=== PATIENT | male | born 1945 | race Caucasian/White ===

== ENCOUNTER → 2023-11-24 15:44 | Outpatient (REF) | payer OTHER, SELFPAY ==
[2023-11-24 11:07] LABS: ALT (SGPT) < 10 U/L (0-50); AST (SGOT) 22 U/L (17-59); Albumin 3.8 g/dl (3.5-5.0); Alkaline Phosphatase 87 U/L (38-126); Blood Urea Nitrogen 16 mg/dl (9-20); Carbon Dioxide 35 mmol/L (22-30); Chloride 100 mmol/L (98-107); Glucose 79 mg/dl (70-99); Potassium 3.8 mmol/L (3.5-5.1); Sodium 141 mmol/L (135-145); Total Bilirubin 0.5 mg/dl (0.2-1.3); eGFR > 60.00
[2023-11-24 11:47] LABS: % Basophils 1.4 % (0-2); % Eosinophils 4.3 % (0-6); % Immature Granulocytes 0.4 % (0-0.5); % Lymphocytes 14.5 % (20.5-51.1); % Monocytes 12.3 % (1.7-9.3); % Neutrophils 67.1 % (42.2-75.2); Absolute Eosinophils 0.1 10^3/uL (0-0.7); Absolute Lymphocytes 0.4 10^3/uL (1.2-3.4); Absolute Monocytes 0.3 10^3/uL (0.1-0.6); Absolute Neutrophils 1.9 10^3/uL (1.4-6.5); Hematocrit 38.8 % (39.0-52.0); Hemoglobin 12.3 g/dL (13.0-18.0); Mean Corp Hgb Conc. 31.7 g/dL (33.0-37.0); Mean Corpuscular Hgb 31.3 pg (27.0-31.0); Mean Corpuscular Volume 98.7 fL (80.0-94.0); Mean Platelet Volume 12.3 fL (7.4-10.4); Nucleated Red Blood Cells % 0 % (-); Platelet Count 168 10^3/uL (130-400); Red Blood Cell Count 3.93 10^6/uL (4.70-6.10); Red Cell Dist. Width 16.5 % (11.5-14.5); White Blood Cell Count 2.8 10^3/uL (4.8-10.8)
== END ==
LOC: OIDL 15:44
PROVIDERS: ATTENDING PHYSICIAN Internal Medicine Hematology & Oncology
DX: C85.93 Non-Hodgkin lymphoma, unspecified, intra-abdominal lymph nodes (principal)
CPT/HCPCS: 80053; 85025

== ENCOUNTER → 2024-01-19 14:58 | Outpatient (REF) | payer OTHER, SELFPAY ==
[2024-01-19 09:39] LABS: % Basophils 1.6 % (0-2); % Eosinophils 4.2 % (0-6); % Immature Granulocytes 0.3 % (0-0.5); % Lymphocytes 15.5 % (20.5-51.1); % Monocytes 15.5 % (1.7-9.3); % Neutrophils 62.9 % (42.2-75.2); Absolute Basophils 0.1 10^3/uL (0-0.2); Absolute Eosinophils 0.1 10^3/uL (0-0.7); Absolute Lymphocytes 0.5 10^3/uL (1.2-3.4); Absolute Monocytes 0.5 10^3/uL (0.1-0.6); Absolute Neutrophils 1.9 10^3/uL (1.4-6.5); Hematocrit 39.8 % (39.0-52.0); Hemoglobin 12.7 g/dL (13.0-18.0); Mean Corp Hgb Conc. 31.9 g/dL (33.0-37.0); Mean Corpuscular Volume 90.9 fL (80.0-94.0); Mean Platelet Volume 11.4 fL (7.4-10.4); Nucleated Red Blood Cells % 0 % (-); Platelet Count 172 10^3/uL (130-400); Red Blood Cell Count 4.38 10^6/uL (4.70-6.10); Red Cell Dist. Width 15.3 % (11.5-14.5); White Blood Cell Count 3.1 10^3/uL (4.8-10.8)
[2024-01-19 10:04] LABS: ALT (SGPT) 13 U/L (0-50); AST (SGOT) 25 U/L (17-59); Albumin 4.4 g/dl (3.5-5.0); Alkaline Phosphatase 83 U/L (38-126); Blood Urea Nitrogen 26 mg/dl (9-20); Calcium 9.8 mg/dl (8.4-10.2); Carbon Dioxide 30 mmol/L (22-30); Chloride 100 mmol/L (98-107); Glucose 95 mg/dl (70-99); Potassium 4.5 mmol/L (3.5-5.1); Sodium 141 mmol/L (135-145); Total Bilirubin 0.4 mg/dl (0.2-1.3); Total Protein 6.7 g/dl (6.3-8.2); eGFR > 60.00
== END ==
LOC: OIDL 14:58
PROVIDERS: ATTENDING PHYSICIAN Internal Medicine Hematology & Oncology
DX: C85.93 Non-Hodgkin lymphoma, unspecified, intra-abdominal lymph nodes (principal)
CPT/HCPCS: 80053; 85025

== ENCOUNTER → 2024-03-18 11:21 | Outpatient (REF) | payer OTHER, SELFPAY ==
[2024-03-18 12:43] VITALS: BP 133/83; BP_SYST 72
== END ==
LOC: RADI 11:21
PROVIDERS: ATTENDING PHYSICIAN Internal Medicine Hematology & Oncology; FAMILY PHYSICIAN Family Medicine
DX: C82.15 Follicular lymphoma grade II, lymph nodes of inguinal region and lower limb (principal)
CPT/HCPCS: 88305; 38505; 76942; 88333; 88341; 88342

== ENCOUNTER → 2024-04-26 16:10 | Outpatient (REF) | payer OTHER, SELFPAY ==
[2024-04-26 10:59] LABS: % Basophils 0.8 % (0-2); % Eosinophils 2.3 % (0-6); % Immature Granulocytes 0.4 % (0-0.5); % Lymphocytes 10.1 % (20.5-51.1); % Monocytes 10.1 % (1.7-9.3); % Neutrophils 76.3 % (42.2-75.2); Absolute Eosinophils 0.1 10^3/uL (0-0.7); Absolute Lymphocytes 0.5 10^3/uL (1.2-3.4); Absolute Monocytes 0.5 10^3/uL (0.1-0.6); Absolute Neutrophils 3.6 10^3/uL (1.4-6.5); Hematocrit 38.5 % (39.0-52.0); Hemoglobin 12.2 g/dL (13.0-18.0); Mean Corp Hgb Conc. 31.7 g/dL (33.0-37.0); Mean Corpuscular Hgb 28.4 pg (27.0-31.0); Mean Corpuscular Volume 89.5 fL (80.0-94.0); Mean Platelet Volume 11.4 fL (7.4-10.4); Nucleated Red Blood Cells % 0 % (-); Platelet Count 186 10^3/uL (130-400); Red Cell Dist. Width 17.3 % (11.5-14.5); White Blood Cell Count 4.7 10^3/uL (4.8-10.8)
[2024-04-26 11:13] LABS: ALT (SGPT) 15 U/L (0-50); AST (SGOT) 27 U/L (17-59); Albumin 4.6 g/dl (3.5-5.0); Alkaline Phosphatase 73 U/L (38-126); Blood Urea Nitrogen 21 mg/dl (9-20); Calcium 9.5 mg/dl (8.4-10.2); Carbon Dioxide 30 mmol/L (22-30); Chloride 103 mmol/L (98-107); Glucose 108 mg/dl (70-99); Potassium 4.6 mmol/L (3.5-5.1); Sodium 143 mmol/L (135-145); Total Bilirubin 0.6 mg/dl (0.2-1.3); Total Protein 7.1 g/dl (6.3-8.2); eGFR > 60.00
== END ==
LOC: OIDL 16:10
PROVIDERS: ATTENDING PHYSICIAN Internal Medicine Hematology & Oncology
DX: C85.93 Non-Hodgkin lymphoma, unspecified, intra-abdominal lymph nodes (principal)
CPT/HCPCS: 80053; 85025

== ENCOUNTER → 2024-04-30 11:38 | Outpatient (REF) | payer OTHER, SELFPAY ==
[2024-04-30 11:53] LABS: % Basophils 0.9 % (0-2); % Eosinophils 2.1 % (0-6); % Immature Granulocytes 1.9 % (0-0.5); % Lymphocytes 10.4 % (20.5-51.1); % Monocytes 12.1 % (1.7-9.3); % Neutrophils 72.6 % (42.2-75.2); Absolute Eosinophils 0.1 10^3/uL (0-0.7); Absolute Immature Granulocytes 0.1 10^3/uL (0-0.05); Absolute Lymphocytes 0.5 10^3/uL (1.2-3.4); Absolute Monocytes 0.5 10^3/uL (0.1-0.6); Absolute Neutrophils 3.1 10^3/uL (1.4-6.5); Hematocrit 37.8 % (39.0-52.0); Hemoglobin 11.6 g/dL (13.0-18.0); Mean Corp Hgb Conc. 30.7 g/dL (33.0-37.0); Mean Corpuscular Hgb 28.4 pg (27.0-31.0); Mean Corpuscular Volume 92.4 fL (80.0-94.0); Mean Platelet Volume 11.2 fL (7.4-10.4); Nucleated Red Blood Cells % 0 % (-); Platelet Count 164 10^3/uL (130-400); Red Blood Cell Count 4.09 10^6/uL (4.70-6.10); Red Cell Dist. Width 17.3 % (11.5-14.5); White Blood Cell Count 4.3 10^3/uL (4.8-10.8)
[2024-04-30 12:07] LABS: ALT (SGPT) 15 U/L (0-50); AST (SGOT) 24 U/L (17-59); Albumin 4.2 g/dl (3.5-5.0); Alkaline Phosphatase 70 U/L (38-126); Blood Urea Nitrogen 20 mg/dl (9-20); Calcium 9.1 mg/dl (8.4-10.2); Carbon Dioxide 31 mmol/L (22-30); Chloride 101 mmol/L (98-107); Glucose 108 mg/dl (70-99); Potassium 4.1 mmol/L (3.5-5.1); Sodium 139 mmol/L (135-145); Total Bilirubin 0.5 mg/dl (0.2-1.3); Total Protein 6.4 g/dl (6.3-8.2); eGFR > 60.00
== END ==
LOC: OIDL 11:38
PROVIDERS: ATTENDING PHYSICIAN Nurse Practitioner Acute Care
DX: C85.93 Non-Hodgkin lymphoma, unspecified, intra-abdominal lymph nodes (principal); D50.9 Iron deficiency anemia, unspecified
CPT/HCPCS: 80053; 85025

== ENCOUNTER → 2024-05-11 10:06 | Outpatient (REF) | payer OTHER, SELFPAY ==
[2024-05-11 08:54] LABS: % Basophils 1.1 % (0-2); % Eosinophils 5.5 % (0-6); % Immature Granulocytes 0.3 % (0-0.5); % Lymphocytes 12.2 % (20.5-51.1); % Monocytes 13.5 % (1.7-9.3); % Neutrophils 67.4 % (42.2-75.2); Absolute Eosinophils 0.2 10^3/uL (0-0.7); Absolute Lymphocytes 0.4 10^3/uL (1.2-3.4); Absolute Monocytes 0.5 10^3/uL (0.1-0.6); Absolute Neutrophils 2.4 10^3/uL (1.4-6.5); Hematocrit 38.2 % (39.0-52.0); Hemoglobin 12.1 g/dL (13.0-18.0); Mean Corp Hgb Conc. 31.7 g/dL (33.0-37.0); Mean Corpuscular Hgb 28.4 pg (27.0-31.0); Mean Corpuscular Volume 89.7 fL (80.0-94.0); Mean Platelet Volume 10.4 fL (7.4-10.4); Platelet Count 194 10^3/uL (130-400); Red Blood Cell Count 4.26 10^6/uL (4.70-6.10); White Blood Cell Count 3.6 10^3/uL (4.8-10.8)
[2024-05-11 10:07] LABS: ALT (SGPT) 17 U/L (0-50); AST (SGOT) 24 U/L (17-59); Albumin 4.1 g/dl (3.5-5.0); Alkaline Phosphatase 86 U/L (38-126); Blood Urea Nitrogen 24 mg/dl (9-20); Calcium 9.1 mg/dl (8.4-10.2); Carbon Dioxide 30 mmol/L (22-30); Chloride 101 mmol/L (98-107); Glucose 104 mg/dl (70-99); Potassium 4.3 mmol/L (3.5-5.1); Sodium 138 mmol/L (135-145); Total Bilirubin 0.6 mg/dl (0.2-1.3); Total Protein 6.6 g/dl (6.3-8.2); eGFR > 60.00
== END ==
LOC: OIDL 10:06
PROVIDERS: ATTENDING PHYSICIAN Internal Medicine Hematology & Oncology
DX: C85.93 Non-Hodgkin lymphoma, unspecified, intra-abdominal lymph nodes (principal)
CPT/HCPCS: 80053; 85025

== ENCOUNTER → 2024-06-01 08:48 | Outpatient (REF) | payer OTHER, SELFPAY ==
[2024-06-01 08:58] LABS: % Basophils 1.3 % (0-2); % Eosinophils 5.9 % (0-6); % Immature Granulocytes 0.2 % (0-0.5); % Lymphocytes 9.8 % (20.5-51.1); % Neutrophils 70.8 % (42.2-75.2); Absolute Basophils 0.1 10^3/uL (0-0.2); Absolute Eosinophils 0.3 10^3/uL (0-0.7); Absolute Lymphocytes 0.5 10^3/uL (1.2-3.4); Absolute Monocytes 0.6 10^3/uL (0.1-0.6); Absolute Neutrophils 3.2 10^3/uL (1.4-6.5); Hematocrit 40.7 % (39.0-52.0); Hemoglobin 12.3 g/dL (13.0-18.0); Mean Corp Hgb Conc. 30.2 g/dL (33.0-37.0); Mean Corpuscular Hgb 27.2 pg (27.0-31.0); Mean Platelet Volume 10.5 fL (7.4-10.4); Platelet Count 237 10^3/uL (130-400); Red Blood Cell Count 4.52 10^6/uL (4.70-6.10); Red Cell Dist. Width 16.4 % (11.5-14.5); White Blood Cell Count 4.6 10^3/uL (4.8-10.8)
[2024-06-01 09:52] LABS: ALT (SGPT) 15 U/L (0-50); AST (SGOT) 24 U/L (17-59); Albumin 4.4 g/dl (3.5-5.0); Alkaline Phosphatase 87 U/L (38-126); Blood Urea Nitrogen 21 mg/dl (9-20); Calcium 9.1 mg/dl (8.4-10.2); Carbon Dioxide 31 mmol/L (22-30); Chloride 102 mmol/L (98-107); Glucose 106 mg/dl (70-99); Potassium 4.6 mmol/L (3.5-5.1); Sodium 142 mmol/L (135-145); Total Bilirubin 0.5 mg/dl (0.2-1.3); Total Protein 6.9 g/dl (6.3-8.2); eGFR > 60.00
== END ==
LOC: OIDL 08:48
PROVIDERS: ATTENDING PHYSICIAN Internal Medicine Hematology & Oncology
DX: C85.93 Non-Hodgkin lymphoma, unspecified, intra-abdominal lymph nodes (principal); D50.0 Iron deficiency anemia secondary to blood loss (chronic); C83.38 Diffuse large B-cell lymphoma, lymph nodes of multiple sites; D50.9 Iron deficiency anemia, unspecified
CPT/HCPCS: 80053; 85025

== ENCOUNTER → 2024-07-13 16:29 | Outpatient (REF) | payer OTHER, SELFPAY ==
[2024-07-13 09:40] LABS: % Basophils 0.9 % (0-2); % Eosinophils 6.4 % (0-6); % Immature Granulocytes 0.2 % (0-0.5); % Lymphocytes 7.7 % (20.5-51.1); % Monocytes 12.8 % (1.7-9.3); Absolute Eosinophils 0.3 10^3/uL (0-0.7); Absolute Lymphocytes 0.4 10^3/uL (1.2-3.4); Absolute Monocytes 0.6 10^3/uL (0.1-0.6); Absolute Neutrophils 3.4 10^3/uL (1.4-6.5); Hemoglobin 11.5 g/dL (13.0-18.0); Mean Corp Hgb Conc. 31.1 g/dL (33.0-37.0); Mean Corpuscular Hgb 26.1 pg (27.0-31.0); Mean Corpuscular Volume 83.9 fL (80.0-94.0); Mean Platelet Volume 10.3 fL (7.4-10.4); Platelet Count 241 10^3/uL (130-400); Red Blood Cell Count 4.41 10^6/uL (4.70-6.10); Red Cell Dist. Width 16.9 % (11.5-14.5); White Blood Cell Count 4.7 10^3/uL (4.8-10.8)
[2024-07-13 10:18] LABS: ALT (SGPT) 15 U/L (0-50); AST (SGOT) 24 U/L (17-59); Albumin 4.4 g/dl (3.5-5.0); Alkaline Phosphatase 80 U/L (38-126); Blood Urea Nitrogen 18 mg/dl (9-20); Calcium 9.2 mg/dl (8.4-10.2); Carbon Dioxide 29 mmol/L (22-30); Chloride 99 mmol/L (98-107); Glucose 131 mg/dl (70-99); Potassium 4.2 mmol/L (3.5-5.1); Sodium 137 mmol/L (135-145); Total Bilirubin 1.1 mg/dl (0.2-1.3); Total Protein 6.7 g/dl (6.3-8.2); eGFR > 60.00
[2024-07-13 11:41] LABS: Urine Albumin Negative (Neg - Trace); Urine Bilirubin Negative (Negative); Urine Character Clear (Clear); Urine Color Yellow; Urine Glucose Negative (Negative); Urine Ketone Negative (Negative); Urine Leukocyte 2+ (Negative); Urine Nitrite Negative (Negative); Urine Occult Blood Negative (Negative); Urine Specific Gravity 1.015 (<1.030); Urine Urobilinogen Negative (Neg - 1+)
[2024-07-13 12:13] LABS: Urine Bacteria Few (Negative); Urine Red Blood Cell 0-2 /HPF (0-2)
== END ==
LOC: OIDL 16:29
PROVIDERS: ATTENDING PHYSICIAN Internal Medicine Hematology & Oncology
DX: C85.93 Non-Hodgkin lymphoma, unspecified, intra-abdominal lymph nodes (principal)
CPT/HCPCS: 80053; 81003; 81015; 85025

== ENCOUNTER → 2024-09-14 14:23 | Outpatient (REF) | payer OTHER, SELFPAY ==
[2024-09-14 10:07] LABS: % Basophils 2.1 % (0-2); % Eosinophils 10.3 % (0-6); % Immature Granulocytes 0.7 % (0-0.5); % Lymphocytes 12.2 % (20.5-51.1); % Neutrophils 62.7 % (42.2-75.2); Absolute Basophils 0.1 10^3/uL (0-0.2); Absolute Eosinophils 0.4 10^3/uL (0-0.7); Absolute Lymphocytes 0.5 10^3/uL (1.2-3.4); Absolute Monocytes 0.5 10^3/uL (0.1-0.6); Absolute Neutrophils 2.7 10^3/uL (1.4-6.5); Hematocrit 33.6 % (39.0-52.0); Hemoglobin 10.2 g/dL (13.0-18.0); Mean Corp Hgb Conc. 30.4 g/dL (33.0-37.0); Mean Corpuscular Hgb 23.8 pg (27.0-31.0); Mean Corpuscular Volume 78.3 fL (80.0-94.0); Mean Platelet Volume 12.1 fL (7.4-10.4); Nucleated Red Blood Cells % 0 % (-); Platelet Count 281 10^3/uL (130-400); Red Blood Cell Count 4.29 10^6/uL (4.70-6.10); White Blood Cell Count 4.3 10^3/uL (4.8-10.8)
[2024-09-14 10:15] LABS: ALT (SGPT) 12 U/L (0-50); AST (SGOT) 20 U/L (17-59); Albumin 3.8 g/dl (3.5-5.0); Alkaline Phosphatase 58 U/L (38-126); Blood Urea Nitrogen 14 mg/dl (9-20); Calcium 9.1 mg/dl (8.4-10.2); Carbon Dioxide 33 mmol/L (22-30); Chloride 103 mmol/L (98-107); Glucose 122 mg/dl (70-99); Potassium 3.7 mmol/L (3.5-5.1); Sodium 142 mmol/L (135-145); Total Bilirubin 0.7 mg/dl (0.2-1.3); Total Protein 6.3 g/dl (6.3-8.2); eGFR > 60.00
== END ==
LOC: OIDL 14:23
PROVIDERS: ATTENDING PHYSICIAN Internal Medicine Hematology & Oncology
DX: C85.93 Non-Hodgkin lymphoma, unspecified, intra-abdominal lymph nodes (principal)
CPT/HCPCS: 80053; 85025

== ENCOUNTER → 2024-11-09 10:05 | Outpatient (REF) | payer OTHER, SELFPAY ==
[2024-11-09 10:09] LABS: Hematocrit 33.5 % (39.0-52.0); Hemoglobin 10.0 g/dL (13.0-18.0); Mean Corp Hgb Conc. 29.9 g/dL (33.0-37.0); Mean Corpuscular Volume 78.1 fL (80.0-94.0); Platelet Count 158 10^3/uL (130-400); Red Cell Dist. Width 24.7 % (11.5-14.5)
[2024-11-09 11:01] LABS: ALT (SGPT) 13 U/L (0-50); AST (SGOT) 20 U/L (17-59); Albumin 4.1 g/dl (3.5-5.0); Alkaline Phosphatase 53 U/L (38-126); Blood Urea Nitrogen 17 mg/dl (9-20); Calcium 9.0 mg/dl (8.4-10.2); Carbon Dioxide 33 mmol/L (22-30); Chloride 106 mmol/L (98-107); Glucose 120 mg/dl (70-99); Potassium 4.0 mmol/L (3.5-5.1); Sodium 144 mmol/L (135-145); Total Protein 6.3 g/dl (6.3-8.2); eGFR > 60.00
== END ==
LOC: OIDL 10:05
PROVIDERS: ATTENDING PHYSICIAN Internal Medicine Hematology & Oncology
DX: C85.93 Non-Hodgkin lymphoma, unspecified, intra-abdominal lymph nodes (principal); D50.0 Iron deficiency anemia secondary to blood loss (chronic); C83.38 Diffuse large B-cell lymphoma, lymph nodes of multiple sites; D50.9 Iron deficiency anemia, unspecified
CPT/HCPCS: 80053; 85025

== ENCOUNTER → 2024-11-23 09:59 | Outpatient (REF) | payer OTHER, SELFPAY ==
[2024-11-23 10:06] LABS: Hematocrit 31.8 % (39.0-52.0); Hemoglobin 9.4 g/dL (13.0-18.0); Mean Corp Hgb Conc. 29.6 g/dL (33.0-37.0); Mean Corpuscular Volume 81.3 fL (80.0-94.0); Platelet Count 304 10^3/uL (130-400); Red Cell Dist. Width 27.5 % (11.5-14.5)
[2024-11-23 12:13] LABS: ALT (SGPT) 17 U/L (0-50); AST (SGOT) 19 U/L (17-59); Albumin 3.7 g/dl (3.5-5.0); Alkaline Phosphatase 54 U/L (38-126); Blood Urea Nitrogen 20 mg/dl (9-20); Calcium 8.5 mg/dl (8.4-10.2); Carbon Dioxide 26 mmol/L (22-30); Chloride 103 mmol/L (98-107); Glucose 146 mg/dl (70-99); Potassium 4.1 mmol/L (3.5-5.1); Sodium 137 mmol/L (135-145); Total Protein 5.9 g/dl (6.3-8.2); eGFR > 60.00
== END ==
LOC: OIDL 09:59
PROVIDERS: ATTENDING PHYSICIAN Internal Medicine Hematology & Oncology
DX: C85.93 Non-Hodgkin lymphoma, unspecified, intra-abdominal lymph nodes (principal); D50.0 Iron deficiency anemia secondary to blood loss (chronic); C83.38 Diffuse large B-cell lymphoma, lymph nodes of multiple sites; D50.9 Iron deficiency anemia, unspecified
CPT/HCPCS: 80053; 85025

== ENCOUNTER 2025-01-21 22:39 | Inpatient (IN) | payer OTHER, SELFPAY ==
[2025-01-21] VITALS (12 sets, daily range): BP systolic 74–90; BP diastolic 46–60; BMI 21.6
[2025-01-21] MEDS: NSS 500 IV (20:15)
[2025-01-21 20:29] LABS: Hematocrit 19.1 % (39.0-52.0); Hemoglobin 5.7 g/dL (13.0-18.0); Mean Corp Hgb Conc. 29.8 g/dL (33.0-37.0); Mean Corpuscular Volume 83.4 fL (80.0-94.0); Nucleated Red Blood Cells % 0 % (-); Platelet Count 168 10^3/uL (130-400); Red Cell Dist. Width 22.3 % (11.5-14.5)
--- NOTE | 2025-01-21 20:38 | ED.GENMED ---
History of Present Illness
<Miley Gonsales PA-C - Last Filed: 01/21/25 22:41>
General
Chief Complaint: Abnormal Lab Value
Source: patient, records and ambulance crew
Exam Limitations: none
Time Seen by Provider: 01/21/25 19:25
History of Present Illness
History of Present Illness:
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
[facility] for low hemoglobin on outpatient labs. Patient denies any symptoms such as lightheadedness, dizziness, chest pain, palpitations, shortness of breath, abdominal pain, nausea, vomiting. Patient states that he does have an appointment
scheduled with a aboriginal education worker coordinator to discuss his anemia. Patient denies that he is ever had a blood transfusion in the past. Patient reports that he did have a bowel movement last night and that it was very dark in color. Records from the patient's
nursing facility do not list any anticoagulation.
Past History
<Miley Gonsales PA-C - Last Filed: 01/21/25 22:41>
Past History
ED Past Medical History: Arrthythmia and Cancer ([facility])
ED Past Surgical History: Other (dental)
Social History
Tobacco: Non-smoker
Alcohol: None
Drug: None
Personal:
Living: shelter
Review of Systems
<Miley Gonsales PA-C - Last Filed: 01/21/25 22:41>
Review of Systems
Allergies reviewed?: Yes
Other source history: shelter
All Other Systems: ROS reviewed and negative except as documented in HPI and ROS
Constitutional: Reports no symptoms
EENT: Reports no symptoms
Respiratory: Reports no symptoms
Cardiac: Reports no symptoms
ABD/GI: Reports black stools
: Reports no symptoms
Musculoskeletal: Reports no symptoms
Skin: Reports no symptoms
Neurological: Reports no symptoms
Endocrine: Reports no symptoms
Hematologic/Lymphatic: Reports no symptoms
Psychiatric: Reports no symptoms
Phy Exam
<Miley Gonsales PA-C - Last Filed: 01/21/25 22:41>
General Physical Exam
General Presentation: well appearing and no apparent distress
General Skin: warm, dry and pale
General Habitus: normal
General Mental: alert
General Hydration: appears well hydrated
ENT Exam
ENT Exam: EOMI
Eye Exam
Eye Exam: other (pale conjunctiva)
Cardiovascular Exam
Cardiovascular Exam: regular rate/rhythm, no edema, no murmur and normal peripheral pulses
Pulmonary Exam
Pulmonary Exam: lungs clear, no respiratory distress, no rales, no crackles, no rhonchi, no stridor, no wheezing and no cough
Gastrointestinal Exam
Gastrointestinal Exam: normal bowel sounds, non tender, soft, no organomegaly, no pulsatile mass and non distended
Rectal Exam: other (no hemorrhoids or fissures appreciated, dark stool, heme occult positive)
Neurological Exam
Neurological Exam: alert, oriented x3, no motor deficits and speech normal
Musculoskeletal Exam
Musculoskeletal Exam: full ROM and no edema
Skin Exam
Skin Exam: normal color, warm/dry, no rash and no petechia
Psychiatric Exam
Psychiatric Exam: normal mood/affect
Course
<Miley Gonsales PA-C - Last Filed: 01/21/25 22:41>
Orders/Labs/Results
Orders:
Orders
01/21/25 20:11
Type And Crossmatch [Type+Screen] Urgent
Complete Blood Count/With Diff Urgent
Comprehensive Metabolic Panel Urgent
01/21/25 20:12
0.9% Sodium Chloride 500 ml [Nss] 500 ml IV BOLUS
01/21/25 20:36
* Blood Bank Products Urgent
Blood Bank Products: *Packed RBC Leuko(PRBC's)
Quantity: 2
Transfuse Today: Yes
Reason: Anemia
Patient will require pre-treatment for transfusion:: No
01/21/25 21:43
Urinalysis Reflex To Culture Urgent
Date Specimen was Collected: 01/21/25
Time Specimen was Collected: 21:38
01/21/25 22:24
Admit/Transfer Patient As Directed
Co-Sign Provider:
Level of Care: Inpatient admission
Assign to:: ICU
Physician / Group: kareem
Diagnosis: GI bleed
Reason for Hospitalization: GI bleed
Expected length of stay greater than two midnights?: Yes
ELOS- Estimated Length of Stay in days: 3
I certify the patient meets the requirements for IP care: Yes
PRN Pain Medication Management As Directed
May give lesser potent ordered pain med per pt: Yes
preference::
Protocol:: Medication orders for pain may be administered in a
manner that supports deferring to patient preference
when the pt is:
- Requesting an ordered lesser potent pain medication.
Least to most potent pain medications are defined
as: acetaminophen < NSAID < tramadol < opioids
(morphine, oxycodone, hydromorphone).
- Requesting a lesser dose of the same medication IF
ORDERED.
- Requesting a less intrusive route of administration
if both routes are prescribed by the provider (PO <
IV).
01/21/25 22:26
Code Status As Directed
Resuscitation Status: Do not resuscitate
Reached after discussion with pt or family/Healthcare POA: Yes
DNR Bracelet Application ONCE
01/21/25 22:30
Pantoprazole 80 mg/100 ml Nss [Protonix] 80 mg in 100 ml IV Q10H
01/21/25 22:31
EKG [Electrocardiogram (*1)] Stat
Reason for Study: Atrial Fibrillation
01/21/25 22:32
PULMONARY CONSULT Routine
Consulting Provider: Javan Heath
Was physician already notified: Yes
01/21/25 22:35
CARDIOLOGY CONSULT Routine
Consulting Provider: Markos Baca
Was physician already notified: No
Reason for consult: sob, edema, hxt of CHF on lasix.
Consult Notification Routine
Specialty to Notify: Cardiology
01/21/25 23:00
Flush (0.9% Sodium Chloride) [Flush (Nss)] See Dose Instructions IV PER PROTOCOL
Abnormal Lab Results
01/21/25
20:11
RBC 2.29 L 10^6/uL
(4.70-6.10)
Hgb 5.7 L* g/dL
(13.0-18.0)
Hct 19.1 L* %
(39.0-52.0)
MCH 24.9 L pg
(27.0-31.0)
MCHC 29.8 L g/dL
(33.0-37.0)
RDW 22.3 H %
(11.5-14.5)
MPV 10.9 H fL
(7.4-10.4)
Absolute Lymphs (auto) 0.7 L 10^3/uL
(1.2-3.4)
Absolute Monos (auto) 0.9 H 10^3/uL
(0.1-0.6)
Lymphocytes % 11.8 L %
(20.5-51.1)
Monocytes % 15.4 H %
(1.7-9.3)
BUN 40 H mg/dl
(9-20)
Glucose 119 H mg/dl
(70-99)
Calcium 8.0 L mg/dl
(8.4-10.2)
Total Protein 4.6 L g/dl
(6.3-8.2)
Albumin 2.8 L g/dl
(3.5-5.0)
Crossmatch IS Only See Detail
01/21/25 20:11
01/21/25 20:11
Vital Signs
Initial and Last Documented VS:
Initial Vital Signs
Temp Pulse Resp BP Pulse Ox
99.0 F 70 13 78/52 93
01/21/25 19:32 01/21/25 19:32 01/21/25 19:32 01/21/25 19:32 01/21/25 19:32
Last Documented Vital Signs
Temp Pulse Resp BP Pulse Ox
99.0 F 70 26 76/52 97
01/21/25 22:17 01/21/25 22:17 01/21/25 22:17 01/21/25 22:17 01/21/25 22:17
Rosannelt;Jesus Davis, DO - Last Filed: 01/21/25 22:02>
Orders/Labs/Results
Orders:
Orders
01/21/25 20:11
Type And Crossmatch [Type+Screen] Urgent
Complete Blood Count/With Diff Urgent
Comprehensive Metabolic Panel Urgent
01/21/25 20:12
0.9% Sodium Chloride 500 ml [Nss] 500 ml IV BOLUS
01/21/25 20:36
* Blood Bank Products Urgent
Blood Bank Products: *Packed RBC Leuko(PRBC's)
Quantity: 2
Transfuse Today: Yes
Reason: Anemia
Patient will require pre-treatment for transfusion:: No
01/21/25 21:43
Urinalysis Reflex To Culture Urgent
Date Specimen was Collected: 01/21/25
Time Specimen was Collected: 21:38
01/21/25 22:24
Admit/Transfer Patient As Directed
Co-Sign Provider:
Level of Care: Inpatient admission
Assign to:: ICU
Physician / Group: kareem
Diagnosis: GI bleed
Reason for Hospitalization: GI bleed
Expected length of stay greater than two midnights?: Yes
ELOS- Estimated Length of Stay in days: 3
I certify the patient meets the requirements for IP care: Yes
PRN Pain Medication Management As Directed
May give lesser potent ordered pain med per pt: Yes
preference::
Protocol:: Medication orders for pain may be administered in a
manner that supports deferring to patient preference
when the pt is:
- Requesting an ordered lesser potent pain medication.
Least to most potent pain medications are defined
as: acetaminophen < NSAID < tramadol < opioids
(morphine, oxycodone, hydromorphone).
- Requesting a lesser dose of the same medication IF
ORDERED.
- Requesting a less intrusive route of administration
if both routes are prescribed by the provider (PO <
IV).
01/21/25 22:26
Code Status As Directed
Resuscitation Status: Do not resuscitate
Reached after discussion with pt or family/Healthcare POA: Yes
DNR Bracelet Application ONCE
01/21/25 22:30
Pantoprazole 80 mg/100 ml Nss [Protonix] 80 mg in 100 ml IV Q10H
01/21/25 22:31
EKG [Electrocardiogram (*1)] Stat
Reason for Study: Atrial Fibrillation
01/21/25 22:32
PULMONARY CONSULT Routine
Consulting Provider: Javan Heath
Was physician already notified: Yes
01/21/25 22:35
CARDIOLOGY CONSULT Routine
Consulting Provider: Markos Baca
Was physician already notified: No
Reason for consult: sob, edema, hxt of CHF on lasix.
Consult Notification Routine
Specialty to Notify: Cardiology
01/21/25 23:00
Flush (0.9% Sodium Chloride) [Flush (Nss)] See Dose Instructions IV PER PROTOCOL
Abnormal Lab Results
01/21/25
20:11
RBC 2.29 L 10^6/uL
(4.70-6.10)
Hgb 5.7 L* g/dL
(13.0-18.0)
Hct 19.1 L* %
(39.0-52.0)
MCH 24.9 L pg
(27.0-31.0)
MCHC 29.8 L g/dL
(33.0-37.0)
RDW 22.3 H %
(11.5-14.5)
MPV 10.9 H fL
(7.4-10.4)
Absolute Lymphs (auto) 0.7 L 10^3/uL
(1.2-3.4)
Absolute Monos (auto) 0.9 H 10^3/uL
(0.1-0.6)
Lymphocytes % 11.8 L %
(20.5-51.1)
Monocytes % 15.4 H %
(1.7-9.3)
BUN 40 H mg/dl
(9-20)
Glucose 119 H mg/dl
(70-99)
Calcium 8.0 L mg/dl
(8.4-10.2)
Total Protein 4.6 L g/dl
(6.3-8.2)
Albumin 2.8 L g/dl
(3.5-5.0)
Crossmatch IS Only See Detail
01/21/25 20:11
01/21/25 20:11
Vital Signs
Initial and Last Documented VS:
Initial Vital Signs
Temp Pulse Resp BP Pulse Ox
99.0 F 70 13 78/52 93
01/21/25 19:32 01/21/25 19:32 01/21/25 19:32 01/21/25 19:32 01/21/25 19:32
Last Documented Vital Signs
Temp Pulse Resp BP Pulse Ox
99.0 F 70 26 76/52 97
01/21/25 22:17 01/21/25 22:17 01/21/25 22:17 01/21/25 22:17 01/21/25 22:17
<Miley Gonsales PA-C - Last Filed: 01/21/25 22:41>
*Pulse Oximetry
SaO2: 90
Oxygen Mode of Delivery: Room air
Patient hypoxic: no
*Critical Care Note
Total Time (30-74mins, 75-104mins- exclusive of procedures): Not Applicable
<Milye Gonsales PA-C - Last Filed: 01/21/25 22:41>
Update Note
Update Note:
79-year-old male presents to the emergency department from his long-term care facility for evaluation of low hemoglobin on outpatient labs performed recently. Patient denies any complaints at this time. On arrival, patient is hypotensive to the
70s over 50s, he is afebrile. On examination, the patient is awake and alert, mentating appropriately, he has a normal cardiopulmonary exam, benign abdomen, he does have dark brown heme positive stool. Labs were obtained and are notable for
hemoglobin of 5.7. Patient made aware. Blood consent was obtained and 2 units of packed red blood cells were ordered. Patient will be admitted for trending of H&H, further blood transfusions as needed, as well as further workup of his likely GI
bleed. Plan was discussed with the patient who expressed understanding and agreed.
ED Attending Note
<Miley Gonsales PA-C - Last Filed: 01/21/25 22:41>
-
Portions of this chart may have been created with voice recognition software.� Occasional wrong word or��sound alike� substitutions may have occurred due to the inherent limitations of voice recognition software.
<Jesus Davis DO - Last Filed: 01/21/25 22:02>
ED Attending Note
Patient seen and examined by attending physician: Yes
I performed the substantive portion of visit, reviewed & personally made and approve the management plan that is documented in note by myself or LISET.: Yes
I performed a history and physical exam of patient and discussed management with resident, I reviewed resident's note and agree with documented findings and plan of care.: Yes
ED Attending Note:
79-year-old male presents to the ER from his long-term care facility for further evaluation of low hemoglobin. Patient reports feeling generally displeased with his current living situation but denies any complaint of pain. He denies having
received a blood transfusion in the past. He did have a dark bowel movement yesterday. Vital signs reviewed, patient is awake, alert, appears no acute distress, port present right anterior chest wall, conjunctiva pale, abdomen is soft and
nontender on palpation, rectal exam performed by OR[place]O as above-brown stool present in the vault which was strongly heme positive, GCS is 15. I discussed with patient need for admission for blood transfusion and further evaluation. He agrees with
plan at current. I consented patient for blood transfusion. 2 units are ordered. Patient admitted to the hospitalist in good condition.
Critical care statement: A total of 30 minutes of critical care time was provided for this patient. This includes management of unstable vital signs, evaluation of the patient at bedside, reviewing the patient's pertinent medical records, discussion
with consultants, review of old EKGs and review of pertinent medical records. This time with separate from time utilized to perform the aforementioned documented procedures
Discharge Plan
Departure
Patient Disposition: Admit
Date of Disposition: 01/21/25
Time of Disposition: 22:26
Presentation/result/management discussed w/ accepting MD/DO: Hospitalist
Discharge Problem:
Anemia, Heme positive stool
Interventions
Interventions:
*General Assessment Last Done: 01/21/25 19:37
*Neglect/Abuse Screening Last Done: 01/21/25 19:37
*ED- Fall Risk Assessment Last Done: 01/21/25 19:37
*ED COVID-19 Vaccine History Last Done: 01/21/25 19:37
[2025-01-21 20:42] LABS: ALT (SGPT) 14 U/L (0-50); AST (SGOT) 18 U/L (17-59); Albumin 2.8 g/dl (3.5-5.0); Alkaline Phosphatase 56 U/L (38-126); Blood Urea Nitrogen 40 mg/dl (9-20); Calcium 8.0 mg/dl (8.4-10.2); Carbon Dioxide 27 mmol/L (22-30); Chloride 107 mmol/L (98-107); Estimated Creatinine Clearance 60 ml/min; Glucose 119 mg/dl (70-99); Potassium 4.0 mmol/L (3.5-5.1); Sodium 137 mmol/L (135-145); Total Protein 4.6 g/dl (6.3-8.2); eGFR > 60.00
[2025-01-21 20:50] LABS: Anisocytosis 2+; Hypochromasia 2+; Macrocytosis 2+; Normal RBC Morphology No; Stomatocytes Occasional; Target Cells Occasional
--- NOTE | 2025-01-21 21:44 | HPS.HSE ---
Family Physician
-
Family Physician: Javan Del Castillo, DO
Chief Complaint
-
low hemoglovin
History of Present Illness
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
low hemoglobin on outpatient labs. patient stated black bluish stool last night. he was nauseous. he felt dizzy.denied OTT or syncope. denied fever, chills, cough,congestion, chest pain, sob. denied abdominal pain, vomiting or diarrhea.
Upon arrival he was noted to have a hemoglobin of 5.7. 2 units ordered in the ER. Admitting for further
Medical History
Past Medical History
Past Medical History: Reports Other
Additional Past Medical History:
Non-Hodgkin's lymphoma, BPH, renal lithiasis, bundle branch block, hyperlipidemia, depression, hypertension, paroxysmal A-fib, upper GI bleed, chronic back pain, osteoarthritis, iron deficiency anemia
Past Surgical History: Reports Other
Additional Past Surgical History:
Hernia repair
Social History
Tobacco: Non-smoker
Alcohol: None
Drug: None
Living: Long Term
Family History
Family History: Not pertinent
Allergies / Home Medications
Allergies reflects when Allergies were last updated in [facility].
Home Medications with original date entered in [facility]
Allergy/Medication List:
Allergies
Allergy/AdvReac Type Severity Reaction Status Date / Time
Sulfa (Sulfonamide Allergy Unknown Verified 01/21/25 19:36
Antibiotics)
Tetracyclines Allergy Unknown Verified 01/21/25 19:36
Home Medications
apixaban 5 mg tablet (Eliquis) 5 mg PO BID Blood Clot Prevention/Tx 02/19/21
biotin 10,000 mcg capsule 10,000 mcg PO DAILY Supplement 02/19/21
ferrous sulfate 325 mg (65 mg iron) tablet (Iron (ferrous sulfate)) 325 mg PO BID Supplement 02/19/21
gabapentin 100 mg capsule 100 mg PO BID Neurological Condition 02/19/21
meclizine 25 mg tablet 25 mg PO DAILYPRN PRN dizziness 02/19/21
pantoprazole 20 mg tablet,delayed release (Protonix) 40 mg PO DAILY Gastrointestinal Issue 02/19/21
tamsulosin 0.4 mg capsule 0.4 mg PO QPM Urinary Issue 02/19/21
allopurinol 100 mg tablet 100 mg PO TID Gout 05/09/23
aripiprazole 2 mg tablet 2 mg PO QPM Mental health 05/09/23
cholecalciferol (vitamin D3) 125 mcg (5,000 unit) tablet 125 mcg PO DAILY Supplement 05/09/23
cyanocobalamin (vitamin B-12) 5,000 mcg capsule 5,000 mcg PO DAILY Supplement 05/09/23
docusate sodium 100 mg capsule 200 mg PO BID Constipation 05/09/23
latanoprost 0.005 % eye drops 1 drp BOTH EYES HS Eye Condition 05/09/23
metoprolol succinate 25 mg tablet,extended release 24 hr 25 mg PO DAILY Blood Pressure 05/09/23
mirtazapine 15 mg tablet 15 mg PO QPM mental health 05/09/23
oxycodone 10 mg tablet,crush resistant,extended release 12 hr (OxyContin) 10 mg PO Q12 #4 tabs 05/15/23
oxycodone 5 mg tablet 5 mg PO Q6HPRN PRN breathru pain #6 tabs 05/15/23
baclofen 10 mg tablet 10 mg PO HS PRN pain 03/16/24
dexamethasone 4 mg tablet 4 mg PO DAILY 03/16/24
fluconazole 100 mg tablet 100 mg PO DAILY 03/16/24
lidocaine 4 % topical patch 1 patch topical DAILY PRN pain 03/16/24
lorazepam 0.5 mg tablet 0.5 mg PO DAILY PRN anxiety 03/16/24
melatonin 3 mg capsule 3 mg PO HS PRN insomnia 03/16/24
mirabegron 50 mg tablet,extended release 24 hr (Myrbetriq) 50 mg PO DAILY 03/16/24
tramadol 50 mg tablet 50 mg PO Q6H PRN pain 03/16/24
trazodone 50 mg tablet 50 mg PO HS PRN insomnia 03/16/24
acetaminophen 325 mg tablet 650 mg PO Q6H PRN fever 01/21/25
allopurinol 300 mg tablet 300 mg PO DAILY 01/21/25
baclofen 10 mg tablet 10 mg PO BID 01/21/25
escitalopram oxalate 5 mg tablet 5 mg PO DAILY 01/21/25
furosemide 20 mg tablet 20 mg PO DIRECTED 01/21/25
furosemide 40 mg tablet 40 mg PO DIRECTED 01/21/25
hydroxyzine HCl 25 mg tablet 25 mg PO BID 01/21/25
lisinopril 2.5 mg tablet 2.5 mg PO DAILY 01/21/25
potassium chloride 10 mEq tablet,extended release 10 meq PO DAILY 01/21/25
rivaroxaban 20 mg tablet (Xarelto) 20 mg PO DAILY 01/21/25
Review of Systems
-
Constitutional: Reports No Symptoms
EENT: Reports No Symptoms
Respiratory: Reports No Symptoms
Cardiac: Reports No Symptoms
Abdomen/GI: Reports Black Stools
: Reports No Symptoms
Musculoskeletal: Reports No Symptoms
Skin: Reports No Symptoms
Neurological: Reports No Symptoms
Endocrine: Reports No Symptoms
Hematologic/Lymphatic: Reports No Symptoms
Psych: Reports No Symptoms
Physical Exam
Vital Signs
Vital Signs
Temp Pulse Resp BP Pulse Ox
99.0 F 76 16 81/51 96
01/21/25 19:32 01/21/25 21:00 01/21/25 21:00 01/21/25 21:00 01/21/25 21:00
Physical Exam
General: Well Developed, Well Nourished and No Apparent Distress
HEENT: NormoCephalic, Moist mucous membranes and Atraumatic
Respiratory: Clear
Cardiac: S1/S2 and Regular Rhythm; No Murmur or Rub
GI: Soft, Non Tender, Non Distended and Normal Bowel Sounds; No Organomegaly
Rectal: Deferred by Provider
Musculoskeletal: No Clubbing, No Cyanosis and No Edema
Skin: No Rash
Neuro: AO x 3 and Nonfocal/grossly intact
Psych: Calm
Laboratory Results
-
01/21/25 20:11
01/21/25 20:11
Laboratory Results
Total Bilirubin 0.2 mg/dl (0.2-1.3) 01/21/25 20:11
AST 18 U/L (17-59) 01/21/25 20:11
ALT 14 U/L (0-50) 01/21/25 20:11
Alkaline Phosphatase 56 U/L (38-126) 01/21/25 20:11
Data Reviewed
-
Lab Data: Labs Reviewed by me
Impression/Plan
-
# Dark stool secondary to GI bleed
# Hypotensive secondary to acute blood loss anemia
- Heme positive dark brown stool
- Hemoglobin 5.7
- 2 units PRBC
- Trend hemoglobin
- Keep patient n.p.o.
- IV PPI
- GI consult
# Non-Hodgkin's lymphoma
- On chemo last dose was last Friday
- [facility]
#[id number]
#Permanent pacemaker
-Obtain EKG
- Hold Xarelto and metoprolol
#Chronic ambulatory dysfunction
-Uses cane at baseline
-PT consult
#GERD
- PPI
#BPH
-Resume Flomax
#Depression
-Continue Abilify escitalopram
#Insomnia
- On trazodone
#History of vertigo
-Meclizine as needed
#Gout-continue allopurinol
#chronic pain
-oxy and tramadol continued
# DVT prophylaxis
-SCD
# CODE STATUS
-DNR
--- NOTE | 2025-01-21 21:47 | W.PN.UPDATE ---
Update Note
Progress Note Update
Patient seen in conjunction with BURAK. I agree with the findings Scope. I concur with Chemaman and plan unless stated otherwise.
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
atrial fibrillation on Xarelto, pacemaker implantation, GERD, BPH, depression, gout, vertigo, chronic lower extremity edema presenting to the emergency department for abnormal hemoglobin on outpatient.
Patient was found to have a low hemoglobin on outpatient labs yesterday. He denies any active acute symptoms but is noted to have dark stools yesterday. He was actually hypotensive on arrival in the emergency department with a blood pressure of
78/52. He denies feeling dizzy or lightheaded. He has normal mentation. He denies any nausea or vomiting. He denies any abdominal pain. He denies any history of hematemesis. He took Xarelto last possibly this evening but unclear.. He denies
history of peptic ulcer disease.
In the emergency department blood pressure remains 81/50 with a pulse of 76 and is satting 96% on room air.
Exam noted for dark brown heme positive stools
Hemoglobin is 5.7, down from 9.4 in November. Platelet count is normal at 168. Electrolytes BUN/creatinine are notable for a BUN of 40 but otherwise unremarkable.
Assessment and plan
Suspected upper GI bleed with hemoglobin down to 5.7. Moderate hemorrhagic shock
- Admit to ICU
- Start PPI IV drip
- Transfused 2 units packed red blood cells now
- Trend H&H
-Discussed with GI for possible reversal with Kcentra
- N.p.o. for now, sips okay
- Gentle maintenance fluids
- GI consultation
DVT prophylaxis�SCDs
CODE STATUS� full code
[2025-01-21 22:40] LABS: Urine Character Clear (Clear)
[2025-01-21] MEDS: PROTONIX 100 IV (22:47)
[2025-01-21 22:54] LABS: Urine Squamous Cell 0-2 /LPF (Few)
[2025-01-21 22:55] LABS: Urine Red Blood Cell 0-2 /HPF (0-2)
[2025-01-21 23:35] LABS: Magnesium 1.7 mg/dl (1.6-2.3)
--- NOTE | 2025-01-21 23:36 | PTCARENOTE ---
Pt received approx 23:15. Ox3, PAK, makes need known. 100% vpaced, underlying afib. RA, pulse ox 94%, breath sounds diminished t/o. +bowel sounds, denies abdominal pain. No BM noted at this time. No urine output noted at this time. Skin intact, b/l
heels boggy. 1st unit PRBCs transfusing. Safe environment maintained, call yuen within reach.
[2025-01-22] VITALS (47 sets, daily range): BP systolic 81–127; BP diastolic 46–80; PULSE 69–78; BMI 21.6; BMI 22.2; BMI 21.9
[2025-01-22 00:26] LABS: Glucose - Point of Care 124 mg/dl (70-99)
[2025-01-22 00:43] LABS: INR 1.62; PT 19.5 Sec (11.4-14.6)
[2025-01-22 00:44] LABS: APTT 32.8 Sec (23.4-35.0)
[2025-01-22 04:56] LABS: Hematocrit 22.2 % (39.0-52.0); Hemoglobin 6.9 g/dL (13.0-18.0); Mean Corp Hgb Conc. 31.1 g/dL (33.0-37.0); Mean Corpuscular Volume 84.7 fL (80.0-94.0); Platelet Count 138 10^3/uL (130-400); Red Cell Dist. Width 19.8 % (11.5-14.5)
[2025-01-22 04:58] LABS: Blood Urea Nitrogen 37 mg/dl (9-20); Calcium 8.0 mg/dl (8.4-10.2); Carbon Dioxide 28 mmol/L (22-30); Chloride 110 mmol/L (98-107); Estimated Creatinine Clearance 77 ml/min; Glucose 105 mg/dl (70-99); Magnesium 1.8 mg/dl (1.6-2.3); Potassium 4.1 mmol/L (3.5-5.1); Sodium 138 mmol/L (135-145); eGFR > 60.00
--- NOTE | 2025-01-22 05:01 | PTCARENOTE ---
After 2 units PRBCs hgb 6.9, x1 unit PRBCs ordered.
Attempted EKG x2, pt yelling at staff 'I do not need any more god damn tests.' Pt angry with any care provided/offered or when staff enters the room. Pt yelling at staff about the disgrace of his prior facility and that his family needs to bring him
his belongings immediately.
--- NOTE | 2025-01-22 06:55 | CON.CAR ---
Addendum entered and electronically signed by Mariel Miller DO 01/22/25 15:43:
I saw and examined the patient.
The Special Assets Officer's note was reviewed and I agree with the note.
Comment: 79-year-old gentleman presenting to the ER yesterday after abnormal labs indicated significant anemia with hemoglobin 5.7 in the ER status post admission for acute blood loss anemia. GI has been consulted with no immediate procedures
planned. Patient has a history of NHL undergoing chemotherapy with Dr. Tyler. He has received 3 units packed red blood cells with repeat hemoglobin 8.3 g/dL. Patient has a history of PAF followed by [facility] cardiology and on Xarelto which was held on
admission. He denies chest pain shortness of breath. He has been cleared by GI and medicine for downgrade to telemetry.
GEN: NAD. AAOx3
HEENT: mmm
LUNGS: RA. Clear anterolaterally without wheeze
CV: V paced with underlying Afib on tele. Reg, S1/S2, 2/6 syst LSB
ABD:ND, soft +BS
EXT: No edema B/L LE
Plan:
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 History of IV iron infusions in the last couple of weeks. Intermittent black
stool going on for the past month and prior to that intermittent bright blood per rectum.
-Hemodynamically stable following 3 units packed red blood cells with hemoglobin now 8.3 g/dL
-GI consulted
Patient has a history of permanent atrial fibrillation confirmed on device interrogation, asymptomatic
-Outpatient Xarelto held
-Patient follows with a auto service representative at [facility]
-Will reach out to [facility] on Friday for further cardiac records
-Toprol XL currently held but will resume once blood pressure stable
-Patient has chronic heart failure with moderately reduced EF, EF was 45% by echo in 2021.
-Patient is refusing any testing including ECG and says he would refuse echo as well. Await records from primary auto service representative on Friday.
-Outpatient dose of Lasix 40 mg alternating with 20 mg daily is on hold in the setting of hypotension, However likely mildly volume overload following transfusion
-proBNP mildly elevated, 1100
- Lasix 20 mg IV x 1 later today
-Will hopefully resume outpatient Lasix 40 mg Friday and 20 mg Friday tomorrow. Will resume metoprolol succinate 25 mg daily likely tomorrow. Eventual will resume lisinopril 2.5 mg daily
Original Note:
Consultation
Consultation Request
Date/Time Consultation Requested: 01/21/2025 at 2235
Date/Time Consultation Performed: 01/22/2025 at 0656
Requesting Provider: Dr. Gilliland
Performing Provider: Dr. Miller
Reason for Consultation: CHF and GIB
Medical History
-
History of Present Illness:
Patient came to the ER yesterday for abnormal labs indicating low Hgb and was admitted with acute blood loss anemia and cardiology is now consulted for history of A-fib chronic HF and holding Xarelto. I talked to the patient's son to get some of
this HPI in addition to talking to patient. Patient came to the ER from his residential yesterday after outpatient labs showed anemia. In the ER initial Hgb was 5.7. Patient denies any history of anemia and denies any previous blood transfusion.
Patient has NHL and is undergoing chemotherapy by Dr. Tyler, apparently the chemotherapy regimen is changing due to changes he has had in blood work recently. Patient received 2 units PRBCs overnight and is receiving 3rd unit now, Hgb this morning
was 6.9 prompting the third unit now. Patient was unaware that he was taking Xarelto 20 mg daily, patient is aware that he has permanent A-fib. Patient has PPM and he does not know the device brand nor where it was placed, but the patient's son
recalls that the auto service representative is Dr. Simmons at [facility] and again he does not know the device brand name. Patient denies any chest pain or SOB.
PMH:
NHL undergoing chemotherapy managed by Dr. Tyler
Permanent Afib
Chronic Xarelto OAC
s/p PPM unknown device brand
Chronic HFmrEF
Depression
Past Medical History
Past Medical History: Other (In HPI)
Past Surgical History: Orthopedic and Other (Hernia repair)
Social History
Tobacco: Non-Smoker
Alcohol: None
Drug: None
Personal:
Living: [facility]
Family History
Family History: CAD
Allergies / Home Medications
Allergy/AdvReac Type Severity Reaction Status Date / Time
Sulfa (Sulfonamide Allergy Unknown Verified 01/21/25 19:36
Antibiotics)
Tetracyclines Allergy Unknown Verified 01/21/25 19:36
�Medication �Instructions �Recorded �Confirmed �Type
gabapentin 100 mg capsule 100 mg PO BID Neurological 02/19/21 01/21/25 History
Condition
meclizine 25 mg tablet 25 mg PO DAILYPRN PRN dizziness 02/19/21 01/21/25 History
pantoprazole 20 mg tablet,delayed 40 mg PO DAILY Gastrointestinal 02/19/21 01/21/25 History
release (Protonix) Issue
tamsulosin 0.4 mg capsule 0.4 mg PO QPM Urinary Issue 02/19/21 01/21/25 History
allopurinol 100 mg tablet 100 mg PO TID Gout 05/09/23 01/21/25 History
aripiprazole 2 mg tablet 2 mg PO QPM Mental health 05/09/23 01/21/25 History
docusate sodium 100 mg capsule 200 mg PO BID Constipation 05/09/23 01/21/25 History
latanoprost 0.005 % eye drops 1 drp BOTH EYES HS Eye Condition 05/09/23 01/21/25 History
metoprolol succinate 25 mg 25 mg PO DAILY Blood Pressure 05/09/23 01/21/25 History
tablet,extended release 24 hr
mirtazapine 15 mg tablet 15 mg PO QPM mental health 05/09/23 01/21/25 History
oxycodone 5 mg tablet 5 mg PO Q6HPRN PRN breathru pain 05/15/23 01/21/25 Rx
#6 tabs
lorazepam 0.5 mg tablet 0.5 mg PO DAILY PRN anxiety 03/16/24 01/21/25 History
mirabegron 50 mg tablet,extended 50 mg PO DAILY 03/16/24 01/21/25 History
release 24 hr (Myrbetriq)
tramadol 50 mg tablet 50 mg PO Q6H PRN pain 03/16/24 01/21/25 History
trazodone 50 mg tablet 50 mg PO HS PRN insomnia 03/16/24 01/21/25 History
acetaminophen 325 mg tablet 650 mg PO Q6H PRN fever 01/21/25 01/21/25 History
allopurinol 300 mg tablet 300 mg PO DAILY 01/21/25 01/21/25 History
baclofen 10 mg tablet 10 mg PO BID 01/21/25 01/21/25 History
escitalopram oxalate 5 mg tablet 5 mg PO DAILY 01/21/25 01/21/25 History
furosemide 20 mg tablet 20 mg PO DIRECTED 01/21/25 01/21/25 History
furosemide 40 mg tablet 40 mg PO DIRECTED 01/21/25 01/21/25 History
hydroxyzine HCl 25 mg tablet 25 mg PO BID 01/21/25 01/21/25 History
lisinopril 2.5 mg tablet 2.5 mg PO DAILY 01/21/25 01/21/25 History
potassium chloride 10 mEq 10 meq PO DAILY 01/21/25 01/21/25 History
tablet,extended release
rivaroxaban 20 mg tablet (Xarelto) 20 mg PO DAILY 01/21/25 01/21/25 History
Review of Systems
-
History Source: Patient and Family (Talked with son, also named Ed, by phone for HPI)
All other systems: Negative unless noted
Physical Exam
Vital Signs
Temp Pulse Resp BP Pulse Ox
98.7 F 70 19 108/72 92
01/22/25 06:09 01/22/25 06:15 01/22/25 06:15 01/22/25 06:15 01/22/25 06:15
GEN: NAD. AAOx3
HEENT: EOMI, MMM
LUNGS: RA. Clear anterolaterally without wheeze
CV: V paced with underlying Afib on tele. Reg, S1/S2, 2/6 syst LSB
ABD:ND
EXT: No edema B/L LE
NEURO: Gross non-focal
SKIN: No rash
Lab Results
01/22/25 04:06
01/22/25 04:06
Impression / Plan
-
PCP: Dr. Javan Del Castillo at [facility]
Card: Dr. Simmons at [facility]
Impression:
Admitted with anemia and GIB 01/21/2025
Heme positive GI bleed
Hemorrhagic shock
Acute blood loss anemia
s/p 3 units PRBCs by 01/22/25 AM
NHL undergoing chemotherapy managed by Dr. Tyler
Leukocytosis
Permanent Afib
Chronic Xarelto OAC
s/p PPM unknown device brand
Chronic HFmrEF
Depression
Echo 12/07/2021: EF 45% with hypokinesis in the inferoseptum and inferior wall, moderate concentric LVH, GLS -16.2%, moderate TR with PAP 58 mmHg
Plan:
-Patient came to the ER yesterday for abnormal labs indicating low Hgb and was admitted with acute blood loss anemia and cardiology is now consulted for history of A-fib chronic HF and holding Xarelto. I talked to the patient's son to get some of
this HPI in addition to talking to patient. Patient came to the ER from his residential yesterday after outpatient labs showed anemia. In the ER initial Hgb was 5.7. Patient denies any history of anemia and denies any previous blood transfusion.
Patient has NHL and is undergoing chemotherapy by Dr. Tyler, apparently the chemotherapy regimen is changing due to changes he has had in blood work recently. Patient received 2 units PRBCs overnight and is receiving 3rd unit now, Hgb this morning
was 6.9 prompting the third unit now. Patient was unaware that he was taking Xarelto 20 mg daily, patient is aware that he has permanent A-fib. Patient has PPM and he does not know the device brand nor where it was placed, but the patient's son
recalls that the auto service representative is Dr. Simmons at [facility] and again he does not know the device brand name. Patient denies any chest pain or SOB.
-Patient has refused ECG, but telemetry reviewed by me is V paced with underlying A-fib
-Called and talked with patient's son for 7 minutes and 36 seconds this morning and I was also able to have a productive talk with the patient even though he has been intermittently refusing to talk to people and is refusing any testing.
-PPM has been in place for less than 10 years, device brand unknown, Dr. Simmons is his primary auto service representative and he scheduled to see him again in March. I will reach out to Dr. Simmons's office on Friday to find out device brand name and
arrange for device check.
-Patient with known permanent A-fib, HR controlled with Toprol-XL 25 mg daily as an outpatient, but currently on hold due to hypotension and hemorrhagic shock on admission.
-Outpatient dose of Xarelto 20 mg daily is on hold due to heme positive anemia
-Patient has chronic heart failure with moderately reduced EF, EF was 45% by echo in 2021. Patient is refusing any testing including ECG and says he would refuse echo as well. Await records from primary auto service representative on Friday.
-Outpatient dose of Lasix 40 mg alternating with 20 mg daily is on hold in the setting of hypotension, but patient is receiving his 3rd unit of PRBCs and will need eventual diuresis. Currently supine in bed without orthopnea and pulse ox stable on
room air. Would consider dose of Lasix 20 mg IV x 1 later today
-Check proBNP, ordered by me
[2025-01-22] MEDS: CALCIUM GLUCONATE 100 IV (07:56)
[2025-01-22] MEDS: ZYLOPRIM 300 MG PO (07:57)
[2025-01-22] MEDS: ZYLOPRIM 100 MG PO ×3 (07:57→21:36)
[2025-01-22] MEDS: NEURONTIN 100 MG PO ×2 (07:57→19:47)
--- NOTE | 2025-01-22 07:57 | W.PN.HOSP.TC ---
Today's Communication/Plan
-
See plan
Assessment / Plan
Assessment / Plan
Physical Exam
General: Well Developed, Well Nourished and No Apparent Distress
HEENT: Normocephalic, Moist mucous membranes and Atraumatic
Respiratory: Clear to Auscultation Bilaterally
Cardiac: S1/S2 and Regular Rhythm
GI: Soft, Non Tender, Non Distended and Normal Bowel Sounds
Musculoskeletal: No Cyanosis and No Edema
Skin: Warm. Dry.
Neuro: AAO x 3 and Nonfocal/grossly intact
Psych: Calm
Assessment/Plan
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
fibrillation on Xarelto, pacemaker implantation, hypertension, GERD, BPH, depression, gout, vertigo, chronic lower extremity edema presented to the emergency department for abnormal hemoglobin on outpatient from his senior living, [facility].
Suspected upper GI bleed with hemoglobin down to 5.7.
Moderate hemorrhagic shock -- hypotensive on presentation with systolic blood pressure 70s
- Hgb 5.7 initially, received 3 units of red blood cells with good improvement
- Admit to ICU
- Continue PPI IV drip
- Transfused 2 units packed red blood cells now
- Trend H&H
- Clear Liquid Diet
- Gentle maintenance fluids
- GI consultation
- Patient refusing endoscopy at this time
Non-Hodgkin's lymphoma
- On chemo last dose was last Friday
- [facility]
Permanent Atrial Fibrillation
Permanent pacemaker
- Hold Xarelto and metoprolol
- Resume Toprol XL once blood pressure improves: likely tomorrow will resume beta janet
Chronic heart failure with moderately reduced EF, EF was 45% in 2021 echo
-Patient refusing ekg, would refuse echo as well
-Holding home Lasix for now
-Lasix 20 mg IV today
-Depending on hemodynamics, resume outpatient Lasix tomorrow
-Also depending on hemodynamics, resume metoprolol succinate 25 mg daily likely tomorrow.
-Home EMILIANO-I to be resumed maybe 1 or 2 days after home beta janet resumed
Chronic ambulatory dysfunction
-Uses cane at baseline
-PT consult
GERD
- PPI
BPH
-Resume Flomax
Depression
-Continue Abilify escitalopram
Insomnia
- On trazodone
History of vertigo
-Meclizine as needed
Gout-continue allopurinol
Chronic pain
-oxy and tramadol continued
DVT Prophylaxis�SCDs
CODE STATUS�DNR (In confirmed over the phone with patient's son Raj on 01/22/25 that patient is DNR)
Anticipated Discharge: > 48 hours
Subjective/Interval History
-
Date of Service: January 22, 2025
Patient was seen and examined. He had some dark stools as per nurse. He denied any complaints.
Objective Data
-
Labs:
Laboratory Results
01/21/25 01/22/25 01/22/25
20:11 00:25 04:06
WBC 5.6 4.3 L
Hgb 5.7 L* 6.9 L* D
Hct 19.1 L* 22.2 L
Plt Count 168 138
PT 19.5 H
INR 1.62
APTT 32.8
Sodium 137 138
Potassium 4.0 4.1
Chloride 107 110 H
Carbon Dioxide 27 28
BUN 40 H 37 H
Creatinine 0.9 0.7
Glucose 119 H 105 H
Calcium 8.0 L 8.0 L
Total Bilirubin 0.2
AST 18
ALT 14
Alkaline Phosphatase 56
Vital Signs:
Vital Signs
Temp Pulse Resp BP Pulse Ox
98.5 F 70 19 108/72 92
01/22/25 07:22 01/22/25 06:15 01/22/25 06:15 01/22/25 06:15 01/22/25 06:15
I&O
01/21/25 01/22/25 01/23/25
06:59 06:59 06:59
Intake Total 500 / 500
Balance 500 / 500
[2025-01-22] MEDS: LEXAPRO 5 MG PO (07:58)
[2025-01-22] MEDS: LIORESAL 10 MG PO ×2 (07:58→19:48)
[2025-01-22] MEDS: PROTONIX 100 IV ×2 (08:13→19:43)
[2025-01-22] MEDS: MYRBETRIQ EXTENDED RELEASE 50 MG PO (08:13)
--- NOTE | 2025-01-22 09:58 | CON.GI ---
Consultation
-
Date/Time Consultation Requested: 01/22/35
Date/Time Consultation Performed: 01/22/25
Requesting Provider:
Performing Provider:
Reason for Consultation: Black stool, anemia
Medical History
Chief Complaint / HPI
Chief Complaint: Melena
History of Present Illness:
79-year-old male with history of non-Hodgkin's lymphoma, status post R-CHOP, treated by Dr. Tyler's group since 2021 presenting with black stool in the last couple of weeks, sent from [facility]. As per patient, he has been having
black stool intermittently in the last several weeks, progressively worse. Prior to that, he reports history of constipation with some bright blood per rectum in the last year or so. Patient reports getting IV iron infusions 3 times in the last 5
to 7 weeks through hematology office. Does not recall getting blood transfusions and no oral iron supplements. He currently denies any abdominal pain, he does report occasional episodes of nausea but no vomiting. No heartburn, he is on
pantoprazole 40 mg daily. He does report regurgitation of food and fluid into the mouth, sour taste, cough which is nonproductive during the day and sometimes at night. He reports history of pneumonias couple of times in the last few years. No
trouble swallowing but he does feel full and is not hungry. Lost about 8 pounds in the last 1 year or so. No NSAID use. History of chronic constipation, has a bowel movement every other day or so with some pushing and straining and incomplete
evacuation. Takes 2 Dulcolax daily. Reports having upper endoscopy and colonoscopy more than 5 years ago, he used to live near [facility] and cannot recall the name of the hospital. Denies any history of ulcers in the stomach, denies any colon
polyps. No family history of colon cancer or colon polyps. He is on Xarelto for history of atrial fibrillation.
He is not a smoker and no history of alcohol abuse.
Reviewing labs, hemoglobin was 5.7 on admission, after 2 units it did go up to 6.9, currently getting another unit. His hemoglobin in 2021 was 7.7, otherwise baseline is between 10 and 12 in the last few years. Did not see GI follow-up in the
records. He does see hematology.
PET scan recently shows some uptake in the groin area but not in the GI tract.
Last Xarelto use was 01/21/2025
Chest x-ray in the hospital shows this visit medium to large hiatal hernia.
Past Medical History
Past Medical History: Other (Non-Hodgkin's lymphoma, hyperlipidemia, depression, hypertension, paroxysmal A-fib, osteoarthritis, iron deficiency anemia)
Past Surgical History: Other (hernia repair)
Social History
Tobacco: Non-Smoker
Alcohol: None
Living: Sn[facility]
Family History
Family History: Reviewed & Not Pertinent
Allergies / Home Medications
Allergy/AdvReac Type Severity Reaction Status Date / Time
Sulfa (Sulfonamide Allergy Unknown Verified 01/21/25 19:36
Antibiotics)
Tetracyclines Allergy Unknown Verified 01/21/25 19:36
�Medication �Instructions �Recorded
gabapentin 100 mg capsule 100 mg PO BID Neurological 02/19/21
Condition
meclizine 25 mg tablet 25 mg PO DAILYPRN PRN dizziness 02/19/21
pantoprazole 20 mg tablet,delayed 40 mg PO DAILY Gastrointestinal 02/19/21
release (Protonix) Issue
tamsulosin 0.4 mg capsule 0.4 mg PO QPM Urinary Issue 02/19/21
allopurinol 100 mg tablet 100 mg PO TID Gout 05/09/23
aripiprazole 2 mg tablet 2 mg PO QPM Mental health 05/09/23
docusate sodium 100 mg capsule 200 mg PO BID Constipation 05/09/23
latanoprost 0.005 % eye drops 1 drp BOTH EYES HS Eye Condition 05/09/23
metoprolol succinate 25 mg 25 mg PO DAILY Blood Pressure 05/09/23
tablet,extended release 24 hr
mirtazapine 15 mg tablet 15 mg PO QPM mental health 05/09/23
oxycodone 5 mg tablet 5 mg PO Q6HPRN PRN breathru pain 05/15/23
#6 tabs
lorazepam 0.5 mg tablet 0.5 mg PO DAILY PRN anxiety 03/16/24
mirabegron 50 mg tablet,extended 50 mg PO DAILY 03/16/24
release 24 hr (Myrbetriq)
tramadol 50 mg tablet 50 mg PO Q6H PRN pain 03/16/24
trazodone 50 mg tablet 50 mg PO HS PRN insomnia 03/16/24
acetaminophen 325 mg tablet 650 mg PO Q6H PRN fever 01/21/25
allopurinol 300 mg tablet 300 mg PO DAILY 01/21/25
baclofen 10 mg tablet 10 mg PO BID 01/21/25
escitalopram oxalate 5 mg tablet 5 mg PO DAILY 01/21/25
furosemide 20 mg tablet 20 mg PO DIRECTED 01/21/25
furosemide 40 mg tablet 40 mg PO DIRECTED 01/21/25
hydroxyzine HCl 25 mg tablet 25 mg PO BID 01/21/25
lisinopril 2.5 mg tablet 2.5 mg PO DAILY 01/21/25
potassium chloride 10 mEq 10 meq PO DAILY 01/21/25
tablet,extended release
rivaroxaban 20 mg tablet (Xarelto) 20 mg PO DAILY 01/21/25
Review of Systems
-
All other systems: A 12 pt ROS was Negative except as stated above in HPI
Vital Signs
Temp Pulse Resp BP Pulse Ox
97.7 F 70 20 114/80 95
01/22/25 08:41 01/22/25 08:46 01/22/25 08:46 01/22/25 08:46 01/22/25 08:46
Physical Exam
Exam
General: Well Developed
GI: Soft, Non Tender and Non Distended
Musculoskeletal: No Edema
Neuro: AO x 3
Results
WBC 4.3 10^3/uL (4.8-10.8) L 01/22/25 04:06
Hgb 6.9 g/dL (13.0-18.0) L* D 01/22/25 04:06
Hct 22.2 % (39.0-52.0) L 01/22/25 04:06
MCV 84.7 fL (80.0-94.0) 01/22/25 04:06
Plt Count 138 10^3/uL (130-400) 01/22/25 04:06
Absolute Neuts (auto) 3.8 10^3/uL (1.4-6.5) 01/21/25 20:11
PT 19.5 Sec (11.4-14.6) H 01/22/25 00:25
INR 1.62 01/22/25 00:25
APTT 32.8 Sec (23.4-35.0) 01/22/25 00:25
Sodium 138 mmol/L (135-145) 01/22/25 04:06
Potassium 4.1 mmol/L (3.5-5.1) 01/22/25 04:06
Chloride 110 mmol/L (98-107) H 01/22/25 04:06
Carbon Dioxide 28 mmol/L (22-30) 01/22/25 04:06
BUN 37 mg/dl (9-20) H 01/22/25 04:06
Creatinine 0.7 mg/dL (0.7-1.3) 01/22/25 04:06
Calcium 8.0 mg/dl (8.4-10.2) L 01/22/25 04:06
Total Bilirubin 0.2 mg/dl (0.2-1.3) 01/21/25 20:11
AST 18 U/L (17-59) 01/21/25 20:11
ALT 14 U/L (0-50) 01/21/25 20:11
Alkaline Phosphatase 56 U/L (38-126) 01/21/25 20:11
Diagnostic Image Results:
Prior GI Procedures:
EGD:
Colonoscopy:
Assessment / Plan
-
79-year-old male with history of B-cell lymphoma on R-CHOP, followed by hematology, presenting with black stool and anemia with a hemoglobin of 5.7. History of IV iron infusions in the last couple of weeks. Intermittent black stool going on for
the past month and prior to that intermittent bright blood per rectum. Upper endoscopy and colonoscopy more than 5 years ago unremarkable as per patient.
- Acute on chronic GI bleeding, rule out ulcer disease, angioectasias, Figueroa's erosions, colon polyps versus other
Currently hemodynamically stable without any evidence of overt GI bleeding.
Continue IV pantoprazole
Monitor H&H and transfuse as needed.
Doing iron studies is going to be futile given he did receive IV iron infusions in the last few weeks.
My suspicion is this is more related to Figueroa's lesions, he would need an upper endoscopy to start with and if negative, he will need a colonoscopy followed by small bowel capsule study.
I had a long discussion with the patient regarding the need for endoscopy evaluation, at this point he is refusing to undergo endoscopies but will have another discussion with him tomorrow.
Will keep Xarelto on hold for now
-Aspiration pneumonia's, cannot rule out regurgitation of food from large hiatal hernia sac
Keep head up all the time to prevent nighttime regurgitation
- Intermittent bright blood per rectum, could be related to hemorrhoids versus other
Will monitor bowel movements during the hospital visit.
Was on Colace for constipation prior to admission, will start him on a bowel regimen prior to discharge.
Will follow-up
-
-
Thank you for consultation and allowing me to participate in the patient's care. Please call the waste cotton cleaner GI physician during the after hours with any questions or concerns.
--- NOTE | 2025-01-22 10:16 | PTCARENOTE ---
Repeat H/H at this time. Hospitalist team at bedside this am with cardiology and GI teams. Protonix drip continues, clears for lunch, and continue assessment and lab trends as ordered. Patient c/c of little appetite and generalized fatigue. Hourly
rounds ongoing, call yuen instruct demo and in use as needed. Continue with unit base procedures and protocols. Supportive cares, emotional support and teaching provided.
[2025-01-22 10:23] LABS: Hematocrit 25.7 % (39.0-52.0); Hemoglobin 8.3 g/dL (13.0-18.0)
--- NOTE | 2025-01-22 14:18 | CM ---
Attempted to complete IA. Patient sleeping soundly. Will defer at this time. Will complete when patient awake.
--- NOTE | 2025-01-22 15:19 | PTCARENOTE ---
No changes noted in clinical assessment. VSS and ongoing. Patient in and out of bed to chair one person assist. 750ml urine output. Protonix drip continues. Updated family at bedside and via phone. Continue with mobility teaching. Start clears.
Patient sips of water and kelby lobito, states no real appetite. Continue frequent safety checks and hourly rounds. Call yuen in reach and in use. Patient sleeping at present rounds.
--- NOTE | 2025-01-22 15:50 | CM ---
Initial assessment completed with patient who resides at [facility] for LTC. He requires a RW for ambulation and assistance for ADL's. Has a R chest wall port. No VA benefits. No psychiatric hospitalizations. Does have HC POA. PCP Dr. Javan Del Castillo.
Pharmacy through [facility]. Discharge POC: Return to [facility] for resumption of LTC.
[2025-01-22] MEDS: LASIX 20 MG IV (16:21)
--- NOTE | 2025-01-22 16:52 | PTCARENOTE ---
No changes in assessment. Medications as per emar and orders. Continue follow up with consults. Updated report to [facility] team. Call to update daughter and law plan of transfer and new room.
[2025-01-22] MEDS: ABILIFY 2 MG PO (17:31)
[2025-01-22] MEDS: FLOMAX 0.4 MG PO (17:31)
[2025-01-22] MEDS: REMERON 15 MG PO (17:34)
[2025-01-22 21:52] LABS: Hematocrit 26.0 % (39.0-52.0); Hemoglobin 8.3 g/dL (13.0-18.0)
[2025-01-23] MEDS: XALATAN OPHTHALMIC SOLUTION BOTH EYES (00:33)
[2025-01-23 03:19] VITALS: BP 105/67
[2025-01-23] MEDS: PROTONIX 100 IV (05:00)
[2025-01-23 05:56] VITALS: BMI 21.1
[2025-01-23 07:23] VITALS: BP 104/66
[2025-01-23] MEDS: MYRBETRIQ EXTENDED RELEASE 50 MG PO (08:52)
[2025-01-23] MEDS: LEXAPRO 5 MG PO (08:52)
[2025-01-23] MEDS: ZYLOPRIM 300 MG PO (08:53)
[2025-01-23] MEDS: LIORESAL 10 MG PO ×2 (08:53→21:07)
[2025-01-23] MEDS: NEURONTIN 100 MG PO ×2 (08:53→21:07)
--- NOTE | 2025-01-23 08:53 | W.PN.HOSP.TC ---
Today's Communication/Plan
-
Continue IV PPI
NPO after midnight for EGD tomorrow
Assessment / Plan
Assessment / Plan
Physical Exam
General: Well Developed, Well Nourished and No Apparent Distress
HEENT: Normocephalic, Moist mucous membranes and Atraumatic
Respiratory: Clear to Auscultation Bilaterally
Cardiac: S1/S2 and Regular Rhythm
GI: Soft, Non Tender, Non Distended and Normal Bowel Sounds
Musculoskeletal: No Cyanosis and No Edema
Skin: Warm. Dry.
Neuro: AAO x 3 and Nonfocal/grossly intact
Psych: Calm
Assessment/Plan
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
fibrillation on Xarelto, pacemaker implantation, hypertension, GERD, BPH, depression, gout, vertigo, chronic lower extremity edema presented to the emergency department for abnormal hemoglobin on outpatient from his snf, [facility].
Suspected upper GI bleed with hemoglobin down to 5.7.
Moderate hemorrhagic shock -- hypotensive on presentation with systolic blood pressure 70s
- Hgb 5.7 initially, received 3 units of red blood cells with good improvement
- Was in ICU previously, now on tele
- Continue IV PPI
- So far received 3 units total PRBCs
- Trend H&H
- Okay to upgrade diet to Low Residue Diet today 01/23/25, but NPO after midnight for EGD on 01/24/25
- GI consultation appreciated
Non-Hodgkin's lymphoma
- On chemo last dose was last Friday
[facility]
Permanent Atrial Fibrillation
Permanent pacemaker
- Hold Xarelto and metoprolol
- Resume Toprol XL once blood pressure improves enough -- blood pressure still seems soft today, so holding for now -- unless cardiology recommends otherwise
Chronic heart failure with moderately reduced EF, EF was 45% in 2021 echo
-Patient refusing ekg, would refuse echo as well
-Holding home Lasix for now
-Lasix 20 mg IV given earlier this admission in the context of patient receiving several PRBC transfusions
-Depending on hemodynamics, resume outpatient Lasix -- BP seems soft and patient does not seem to be in CHF as of 01/23/25
-Also depending on hemodynamics, resume (when able) metoprolol succinate 25 mg daily -- appreciate cardiology
-Home EMILIANO-I to be resumed maybe 1 or 2 days after home beta janet resumed
Chronic ambulatory dysfunction
-Uses cane at baseline
-PT consult
GERD
- PPI as above for GI blled
BPH
-Resume Flomax
Depression
-Continue Abilify and Escitalopram
Insomnia
- On trazodone
History of vertigo
-Meclizine as needed
Gout
-Continue allopurinol
Chronic Pain
-oxy and tramadol continued
DVT Prophylaxis�SCDs
CODE STATUS�DNR (In confirmed over the phone with patient's son Raj on 01/22/25 that patient is DNR. Patient also confirmed on 01/23/25 that he is DNR and DNI)
On 01/23/25, I spoke over the phone to patient's son Raj, and I answered all of his questions and concerns to satisfaction.
Please call son Raj to update him when you get the chance.
Anticipated Discharge: 24 - 48 hours
Subjective/Interval History
-
Date of Service: January 23, 2025
Patient was seen and examined. He reported no bowel movement for days. He denied any abdominal pain or any other complaints, and wanted real food.
Objective Data
-
Labs:
Laboratory Results
01/22/25 01/23/25
21:46 07:54
WBC Pending
Hgb 8.3 L Pending
Hct 26.0 L Pending
Plt Count Pending
Sodium Pending
Potassium Pending
Chloride Pending
Carbon Dioxide Pending
BUN Pending
Creatinine Pending
Glucose Pending
Calcium Pending
Vital Signs:
Vital Signs
Temp Pulse Resp BP Pulse Ox
97.6 F 73 18 104/66 97
01/23/25 07:23 01/23/25 07:23 01/23/25 07:23 01/23/25 07:23 01/23/25 07:23
I&O
01/22/25 01/23/25 01/24/25
06:59 06:59 06:59
Intake Total 500 / 500 1455 / 1455
Output Total 2150 / 2150
Balance 500 / 500 -695 / -695
[2025-01-23] MEDS: ZYLOPRIM 100 MG PO ×3 (08:54→23:14)
[2025-01-23 08:58] LABS: Hematocrit 26.4 % (39.0-52.0); Hemoglobin 8.4 g/dL (13.0-18.0); Mean Corp Hgb Conc. 31.8 g/dL (33.0-37.0); Mean Corpuscular Volume 86.3 fL (80.0-94.0); Platelet Count 171 10^3/uL (130-400); Red Cell Dist. Width 19.4 % (11.5-14.5)
[2025-01-23 09:24] LABS: Blood Urea Nitrogen 15 mg/dl (9-20); Calcium 7.9 mg/dl (8.4-10.2); Carbon Dioxide 30 mmol/L (22-30); Chloride 104 mmol/L (98-107); Estimated Creatinine Clearance 87 ml/min; Glucose 98 mg/dl (70-99); Potassium 3.6 mmol/L (3.5-5.1); Sodium 137 mmol/L (135-145); eGFR > 60.00
[2025-01-23 12:00] VITALS: BP 100/57
--- NOTE | 2025-01-23 15:47 | W.PN.GI.CBS2 ---
Today's Communication / Plan
-
- Acute on chronic GI bleeding, rule out ulcer disease, angioectasias, Figueroa's erosions, colon polyps versus other
Currently hemodynamically stable without any evidence of overt GI bleeding.
Continue IV pantoprazole
Monitor H&H and transfuse as needed.
Patient now agreeable for upper endoscopy but still refuses colonoscopy. Will schedule him for upper endoscopy tomorrow, n.p.o. past midnight.
My suspicion is this is more related to Figueroa's lesions, he would need an upper endoscopy to start with and if negative, he will need a colonoscopy followed by small bowel capsule study.
Will keep Xarelto on hold for now
-Aspiration pneumonia's, cannot rule out regurgitation of food from large hiatal hernia sac
Keep head up all the time to prevent nighttime regurgitation
- Intermittent bright blood per rectum, could be related to hemorrhoids versus other
Will monitor bowel movements during the hospital visit.
Was on Colace for constipation prior to admission, will start him on a bowel regimen prior to discharge.
Will follow-up
Assessment / Plan
-
79-year-old male with history of B-cell lymphoma on R-CHOP, followed by hematology, presenting with black stool and anemia with a hemoglobin of 5.7. History of IV iron infusions in the last couple of weeks. Intermittent black stool going on for
the past month and prior to that intermittent bright blood per rectum. Upper endoscopy and colonoscopy more than 5 years ago unremarkable as per patient.
- Acute on chronic GI bleeding, rule out ulcer disease, angioectasias, Figueroa's erosions, colon polyps versus other
Currently hemodynamically stable without any evidence of overt GI bleeding.
Continue IV pantoprazole
Monitor H&H and transfuse as needed.
Patient now agreeable for upper endoscopy but still refuses colonoscopy. Will schedule him for upper endoscopy tomorrow, n.p.o. past midnight.
My suspicion is this is more related to Figueroa's lesions, he would need an upper endoscopy to start with and if negative, he will need a colonoscopy followed by small bowel capsule study.
Will keep Xarelto on hold for now
-Aspiration pneumonia's, cannot rule out regurgitation of food from large hiatal hernia sac
Keep head up all the time to prevent nighttime regurgitation
- Intermittent bright blood per rectum, could be related to hemorrhoids versus other
Will monitor bowel movements during the hospital visit.
Was on Colace for constipation prior to admission, will start him on a bowel regimen prior to discharge.
Will follow-up
Subjective
Subjective
Date of Service: January 23, 2025
No events overnight
Objective
Data Reviewed
Laboratory Data:
Laboratory Results
01/23/25 07:54
01/23/25 07:54
Laboratory Results
PT 19.5 Sec (11.4-14.6) H 01/22/25 00:25
INR 1.62 01/22/25 00:25
APTT 32.8 Sec (23.4-35.0) 01/22/25 00:25
Phosphorus 4.0 mg/dl (2.5-4.5) 01/21/25 20:11
Magnesium 1.8 mg/dl (1.6-2.3) 01/22/25 04:06
Total Bilirubin 0.2 mg/dl (0.2-1.3) 01/21/25 20:11
AST 18 U/L (17-59) 01/21/25 20:11
ALT 14 U/L (0-50) 01/21/25 20:11
Alkaline Phosphatase 56 U/L (38-126) 01/21/25 20:11
Vital Signs and I&O:
Vital Signs
Temp Pulse Resp BP Pulse Ox
97.4 F 71 18 100/57 94
01/23/25 12:00 01/23/25 12:00 01/23/25 12:00 01/23/25 12:00 01/23/25 12:00
I&O
01/22/25 01/23/25 01/24/25
06:59 06:59 06:59
Intake Total 500 / 500 1455 / 1455
Output Total 2149 / 2149
Balance 500 / 500 -695 / -695
Physical Exam
Physical Exam
GI: Soft, Non Distended and Non Tender
[2025-01-23 16:00] VITALS: BP 112/60
--- NOTE | 2025-01-23 17:21 | W.PN.CARDCBS ---
Today's Communication / Plan
-
Obtain records from [facility] cardiology
Impression / Plan
-
PCP: Dr. Javan Del Castillo at [facility]
Card: Dr. Simmons at [facility]
Impression:
Admitted with anemia and GIB 01/21/2025
Heme positive GI bleed
Hemorrhagic shock
Acute blood loss anemia
s/p 3 units PRBCs by 01/22/25 AM
NHL undergoing chemotherapy managed by Dr. Tyler
Leukocytosis
Permanent Afib
Chronic Xarelto OAC
s/p PPM unknown device brand
Chronic HFmrEF
Depression
Echo 12/07/2021: EF 45% with hypokinesis in the inferoseptum and inferior wall, moderate concentric LVH, GLS -16.2%, moderate TR with PAP 58 mmHg
Plan:
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 History of IV iron infusions in the last couple of weeks. Intermittent black
stool going on for the past month and prior to that intermittent bright blood per rectum.
-Hemodynamically stable following 3 units packed red blood cells with hemoglobin now 8.4 g/dL
-IV PPI
-Hold outpatient Xarelto
-For GI consult�patient for EGD Friday
Patient has a history of permanent atrial fibrillation confirmed on device interrogation, asymptomatic
-Outpatient Xarelto held
-Patient follows with a engine test cell technician at [facility]
-Will reach out to [facility] on Friday for further cardiac records
-Toprol XL currently held but will resume once blood pressure stable
-Patient has chronic heart failure with moderately reduced EF, EF was 45% by echo in 2021.
-Patient is refusing any testing including ECG and says he would refuse echo as well. Await records from primary engine test cell technician on Friday.
-Received IV Lasix between transfusions yesterday
-proBNP mildly elevated, 1100
-Will hopefully resume outpatient Lasix 40 mg Friday and 20 mg Friday tomorrow. Will resume metoprolol succinate 25 mg daily likely tomorrow. Eventual will resume lisinopril 2.5 mg daily
Progress Note - Screening Tech
Subjective
Date of Service: January 23, 2025
Seen and examined. Offers no new complaints.
Objective
Labs:
01/23/25 07:54
01/23/25 07:54
Labs
Hgb 8.4 g/dL (13.0-18.0) L 01/23/25 07:54
Hct 26.4 % (39.0-52.0) L 01/23/25 07:54
Plt Count 171 10^3/uL (130-400) D 01/23/25 07:54
PT 19.5 Sec (11.4-14.6) H 01/22/25 00:25
INR 1.62 01/22/25 00:25
APTT 32.8 Sec (23.4-35.0) 01/22/25 00:25
Sodium 137 mmol/L (135-145) 01/23/25 07:54
Potassium 3.6 mmol/L (3.5-5.1) 01/23/25 07:54
BUN 15 mg/dl (9-20) 01/23/25 07:54
Creatinine 0.6 mg/dL (0.7-1.3) L 01/23/25 07:54
Glucose 98 mg/dl (70-99) 01/23/25 07:54
Vital Signs and I&O:
Vital Signs
Temp Pulse Resp BP Pulse Ox
98.1 F 72 18 112/60 94
01/23/25 16:00 01/23/25 16:00 01/23/25 16:00 01/23/25 16:00 01/23/25 16:00
Vital Signs
Temp Pulse Resp BP Pulse Ox
98.1 F 72 18 112/60 94
01/23/25 16:00 01/23/25 16:00 01/23/25 16:00 01/23/25 16:00 01/23/25 16:00
Intake & Output
01/21/25 01/22/25 01/23/25 01/24/25
06:59 06:59 06:59 06:59
Intake Total 500 / 500 1455 / 1455
Output Total 2150 / 2150
Balance 500 / 500 -695 / -695
Physical Exam
Physical Exam
GEN: NAD. AAOx3
HEENT: mmm
LUNGS: RA. Clear anterolaterally without wheeze
CV: V paced with underlying Afib on tele. Reg, S1/S2, 2/6 syst LSB
ABD:ND, soft +BS
EXT: No edema B/L LE
[2025-01-23] MEDS: ABILIFY 2 MG PO (17:26)
[2025-01-23] MEDS: FLOMAX 0.4 MG PO (17:26)
[2025-01-23] MEDS: REMERON 15 MG PO (17:26)
[2025-01-23 19:57] VITALS: BP 101/62
[2025-01-23] MEDS: PROTONIX IV 40 MG IV (21:08)
[2025-01-23] MEDS: NSS (PRESERVATIVE FREE) 10 ML IV (21:08)
[2025-01-23] MEDS: XALATAN OPHTHALMIC SOLUTION 1 DROP BOTH EYES (23:14)
[2025-01-23 23:29] VITALS: BP 98/61
[2025-01-24] VITALS (10 sets, daily range): BP systolic 89–112; BP diastolic 51–72
[2025-01-24 06:43] LABS: Hematocrit 26.2 % (39.0-52.0); Hemoglobin 8.4 g/dL (13.0-18.0); Mean Corp Hgb Conc. 32.1 g/dL (33.0-37.0); Mean Corpuscular Volume 87.0 fL (80.0-94.0); Platelet Count 173 10^3/uL (130-400); Red Cell Dist. Width 19.6 % (11.5-14.5)
[2025-01-24 07:02] LABS: Blood Urea Nitrogen 14 mg/dl (9-20); Calcium 8.2 mg/dl (8.4-10.2); Carbon Dioxide 28 mmol/L (22-30); Chloride 107 mmol/L (98-107); Estimated Creatinine Clearance 87 ml/min; Glucose 100 mg/dl (70-99); Sodium 138 mmol/L (135-145); eGFR > 60.00
[2025-01-24 07:09] LABS: Potassium 3.6 mmol/L (3.5-5.1)
[2025-01-24] MEDS: LEXAPRO PO (07:46)
[2025-01-24] MEDS: ZYLOPRIM PO ×2 (07:46)
[2025-01-24] MEDS: NEURONTIN PO (07:46)
[2025-01-24] MEDS: MYRBETRIQ EXTENDED RELEASE PO (07:46)
[2025-01-24] MEDS: LIORESAL PO (07:46)
[2025-01-24] MEDS: PROTONIX IV 40 MG IV ×2 (09:08→19:37)
[2025-01-24] MEDS: NSS (PRESERVATIVE FREE) 10 ML IV ×2 (09:08→19:37)
--- NOTE | 2025-01-24 14:14 | W.PN.HOSP.TC ---
Today's Communication/Plan
-
EGD for bleeding source
Resume Xarelto/beta-janet/EMILIANO I stepwise per cardiology management
Assessment / Plan
Assessment / Plan
Assessment/Plan
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
fibrillation on Xarelto, pacemaker implantation, hypertension, GERD, BPH, depression, gout, vertigo, chronic lower extremity edema p/w for abnormal hemoglobin on outpatient labs from his senior living, [facility].
Acute anemia
Shock
suspected upper GI bleed versus chemo versus lymphoma
hypotensive on presentation with systolic blood pressure 70s -improved
- Hgb 5.7 initially, received 3 units of red blood cells, hemoglobin improved to 8.4 and has remained stable. No bleeding noted.
- Was in ICU previously, now on tele
- Continue IV PPI
- Trend H&H
- GI consultation appreciated, completed EGD 01/24, no bleeding or ulcers identified
Next up would be colonoscopy but patient is refusing. This will be arranged for outpatient.
Non-Hodgkin's lymphoma
- On chemo last dose, was last Friday
- [facility]
Permanent Atrial Fibrillation
Permanent pacemaker
- Held Xarelto and metoprolol
- Resume stepwise per cardiology management given EGD results
Chronic heart failure with moderately reduced EF, EF was 45% in 2021 echo
-Patient refusing ekg/echo
-Holding home Lasix for now due to hypotension
-Lasix 20 mg IV given earlier this admission in the context of patient receiving several PRBC transfusions
-Depending on hemodynamics, resume outpatient Lasix -- BP seems soft and patient does not seem to be in exacerbation
-Also depending on hemodynamics, resume (when able) metoprolol succinate 25 mg daily -- appreciate cardiology
-Home EMILIANO-I to be resumed stepwise
Chronic ambulatory dysfunction
-Uses cane at baseline
-PT/OT consult
GERD
Hiatal hernia
- PPI
BPH
-Resume Flomax
Depression
-Continue Abilify and Escitalopram
Insomnia
- On trazodone
History of vertigo
-Meclizine as needed
Gout
-Continue allopurinol
Chronic Pain
-oxy and tramadol continued
DVT Prophylaxis�SCDs
CODE STATUS�DNR
Anticipated Discharge: 24 - 48 hours
Subjective/Interval History
-
Date of Service: January 24, 2025
Patient seen prior to EGD, noted he had 2 hard bowel movements, nonbloody.
Updated son on EGD results by phone.
Objective Data
-
Labs:
Laboratory Results
01/24/25
06:10
WBC 4.2 L
Hgb 8.4 L
Hct 26.2 L
Plt Count 173
Sodium 138
Potassium 3.6
Chloride 107
Carbon Dioxide 28
BUN 14
Creatinine 0.6 L
Glucose 100 H
Calcium 8.2 L
Vital Signs:
Vital Signs
Temp Pulse Resp BP Pulse Ox
97.4 F 78 16 112/72 93
01/24/25 14:10 01/24/25 14:10 01/24/25 14:10 01/24/25 14:10 01/24/25 14:10
I&O
01/23/25 01/24/25 01/25/25
06:59 06:59 06:59
Intake Total 1455 / 1455 840 / 840
Output Total 2150 / 2150 700 / 700
Balance -695 / -695 140 / 140
Review of Systems
-
All other systems: Reviewed and negative
Physical Exam
-
General: No Apparent Distress
HEENT: Moist Mucous Membranes, Anicteric and PERRLA
Respiratory: Clear to Auscultation; Negative Wheezes, Rales or Rhonchi
Cardiac: Regular Rhythm and S1/S2; Negative Murmur, Rub or Gallop
GI: Soft, Nontender, Nondistended and Normal Bowel Sounds
Musculoskeletal: No Edema
Skin: Warm and Dry; Negative Rash, Ulcers or Lesions
Neuro: Awake and AO x 3
Hematologic / Lymphatic: No Lymphadenopathy
Psych: Calm
Data Reviewed
-
Diagnostic Radiology: Report Reviewed by me
Medical Tests (Nuc Med, Echo etc): Report Reviewed by me, Discussed with Physician and Discussed with Family
Labs: Labs Reviewed by me, Discussed with Physician and Discussed with Patient
Old Records: Reviewed
--- NOTE | 2025-01-24 15:00 | CM ---
CM reviewed chart, patient seen bedside, confirmed plan will be to return to [facility] when stable. CM spoke with liaison, Natalie, reports patient is typically ambulatory with RW, can dress self, put shoes socks on, if patient appears off of
baseline, would request auth to return skilled. TT to Hospitalist for OT consult, will watch for PT/OT evals. CM will continue to follow for all discharge planning needs.
Plan; return to [facility] when stable, may require auth to return
[2025-01-24] MEDS: FLOMAX 0.4 MG PO (17:17)
[2025-01-24] MEDS: ZYLOPRIM 100 MG PO ×2 (17:17→19:38)
[2025-01-24] MEDS: REMERON 15 MG PO (17:17)
[2025-01-24] MEDS: ABILIFY 2 MG PO (17:17)
--- NOTE | 2025-01-24 17:53 | W.PN.CARDCBS ---
Today's Communication / Plan
-
Colonoscopy tomorrow
Continue to hold Xarelto
Will resume his cardiac medications once diet is resumed
Impression / Plan
-
PCP: Dr. Javan Del Castillo at [facility]
Card: Dr. Simmons at [facility]
Impression:
Admitted with anemia and GIB 01/21/2025
Heme positive GI bleed
Hemorrhagic shock
Acute blood loss anemia
s/p 3 units PRBCs by 01/22/25 AM
NHL undergoing chemotherapy managed by Dr. Tyler
Leukocytosis
Permanent Afib
Chronic Xarelto OAC
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
Chronic HFmrEF
Depression
Echo 12/07/2021: EF 45% with hypokinesis in the inferoseptum and inferior wall, moderate concentric LVH, GLS -16.2%, moderate TR with PAP 58 mmHg
Plan:
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 History of IV iron infusions in the last couple of weeks. Intermittent black
stool going on for the past month and prior to that intermittent bright blood per rectum.
-Hemodynamically stable following 3 units packed red blood cells with hemoglobin now 8.4 g/dL
-IV PPI
-Hold outpatient Xarelto
- Spoke with GI, endoscopy procedures performed without complications. Large hiatal hernia with no gross lesions status post biopsies and a torturous esophagus. Patient strongly advised for colonoscopy and now agreeable during this admission.
Patient has a history of permanent atrial fibrillation status post AV node ablation with Micra leadless pacemaker
-Outpatient Xarelto held
-Patient follows with a finished cigar maker at [facility]
Nonischemic cardiomyopathy
-Appears euvolemic after receiving IV Lasix between transfusions
-No further IV Lasix at this time
-Patient is on outpatient Lasix 40 mg Friday//Friday and 20 mg Friday/Friday/Friday. Will resume tomorrow following
colonoscopy-
-patient is on metoprolol succinate 25 mg daily and lisinopril 2 mg daily. Blood pressures are slightly low and he will be for colon prep tonight. Will resume cardiac medications following colonoscopy once diet is resumed..
Records received from [facility] cardiology:
*2D echocardiogram 05/14/2021: Normal LV size and systolic function with EF 50-55% with severe left atrial dilatation, sclerotic aortic valve with mild aortic insufficiency. Moderate tricuspid regurgitation. Trace mitral regurgitation. Estimated
pulmonary artery pressure 44 mmHg assuming a right atrial pressure 8 mmHg.
*Office note dated 07/02/[address] Freeman: History of permanent atrial fibrillation nonischemic cardiomyopathy who underwent AV node ablation and Micra leadless pacemaker implant in 2020. Interrogation in June with normal battery
reserve and normal function.
DNR status noted
Progress Note - Medical Researcher
Subjective
Date of Service: January 24, 2025
Seen and examined after EGD. Patient reports feeling better and denies shortness of breath or chest pain. He was relieved that EGD looked okay. For colonoscopy tomorrow
Objective
Labs:
01/24/25 06:10
01/24/25 06:10
Labs
Hgb 8.4 g/dL (13.0-18.0) L 01/24/25 06:10
Hct 26.2 % (39.0-52.0) L 01/24/25 06:10
Plt Count 173 10^3/uL (130-400) 01/24/25 06:10
PT 19.5 Sec (11.4-14.6) H 01/22/25 00:25
INR 1.62 01/22/25 00:25
APTT 32.8 Sec (23.4-35.0) 01/22/25 00:25
Sodium 138 mmol/L (135-145) 01/24/25 06:10
Potassium 3.6 mmol/L (3.5-5.1) 01/24/25 06:10
BUN 14 mg/dl (9-20) 01/24/25 06:10
Creatinine 0.6 mg/dL (0.7-1.3) L 01/24/25 06:10
Glucose 100 mg/dl (70-99) H 01/24/25 06:10
Vital Signs and I&O:
Vital Signs
Temp Pulse Resp BP Pulse Ox
98 F 72 16 105/66 96
01/24/25 15:11 01/24/25 15:11 01/24/25 15:11 01/24/25 15:11 01/24/25 15:11
Vital Signs
Temp Pulse Resp BP Pulse Ox
98 F 72 16 105/66 96
01/24/25 15:11 01/24/25 15:11 01/24/25 15:11 01/24/25 15:11 01/24/25 15:11
Intake & Output
01/22/25 01/23/25 01/24/25 01/25/25
06:59 06:59 06:59 06:59
Intake Total 500 / 500 1455 / 1455 840 / 840 480 / 480
Output Total 2150 / 2150 700 / 700
Balance 500 / 500 -695 / -695 140 / 140 480 / 480
Physical Exam
Physical Exam
GEN: NAD. AAOx3
HEENT: mmm
LUNGS: RA. Clear anterolaterally without wheeze
CV: V paced with underlying Afib on tele. Reg, S1/S2, 2/6 syst LSB
ABD:ND, soft +BS
EXT: No edema B/L LE
--- NOTE | 2025-01-24 18:38 | W.PN.UPDATE ---
Update Note
Progress Note Update
Patient considering getting colonoscopy while in the hospital. He will let us know tomorrow. Will start him on clear liquid diet starting with breakfast tomorrow and once he decides regarding proceeding with colonoscopy, we will start the prep
tomorrow night for colonoscopy on Friday
[2025-01-24] MEDS: LIORESAL 10 MG PO (19:38)
[2025-01-24] MEDS: NEURONTIN 100 MG PO (19:38)
[2025-01-24] MEDS: XALATAN OPHTHALMIC SOLUTION 1 DROP BOTH EYES (19:38)
[2025-01-25] VITALS (7 sets, daily range): BP systolic 91–144; BP diastolic 58–93; PULSE 66; O2SAT 91; BMI 20.5
[2025-01-25 08:32] LABS: Hematocrit 27.0 % (39.0-52.0); Hemoglobin 8.3 g/dL (13.0-18.0); Mean Corp Hgb Conc. 30.7 g/dL (33.0-37.0); Mean Corpuscular Volume 88.2 fL (80.0-94.0); Platelet Count 193 10^3/uL (130-400); Red Cell Dist. Width 19.8 % (11.5-14.5)
--- NOTE | 2025-01-25 09:17 | W.PN.GI.CBS2 ---
Addendum entered and electronically signed by Alvin Cotto MD 01/25/25 14:37:
I saw and examined the patient.
The FOUNDATION ASSISTANT or PA's note was reviewed and I agree with the note.
Comment: No bleeding noted
ABD soft NTND
REC:
Hgb stable 8.3
Pt agreeable to colonoscopy tomorrow
Hold xarelto
Original Note:
Today's Communication / Plan
-
Colonoscopy tomorrow
Assessment / Plan
-
79-year-old male with history of B-cell lymphoma on R-CHOP, followed by hematology, presenting with black stool and anemia with a hemoglobin of 5.7. History of IV iron infusions in the last couple of weeks. Intermittent black stool going on for
the past month and prior to that intermittent bright blood per rectum. Upper endoscopy and colonoscopy more than 5 years ago unremarkable as per patient.
- Acute on chronic GI bleeding
Hemoglobin stable 8.3 status post 3 units packed red blood cells.
EGD essentially negative for signs of bleeding, large hiatal hernia
Patient agreeable for colonoscopy tomorrow
Xarelto on hold
-Aspiration pneumonia's, cannot rule out regurgitation of food from large hiatal hernia sac
Keep head up all the time to prevent nighttime regurgitation
Continue PPI
Was on Colace for constipation prior to admission, will start him on a bowel regimen prior to discharge.
Will follow-up
Subjective
Subjective
Date of Service: January 25, 2025
Patient without any signs of bleeding. Hemoglobin stable. Patient is status post EGD 01/24/2025 that showed torturous esophagus. Z-line regular. Large hiatal hernia. No gross lesions in the entire stomach. No angioectasias. Normal duodenum.
Patient is agreeable for colonoscopy tomorrow. Clear liquid started and will prep this evening for colonoscopy tomorrow.
Objective
Data Reviewed
Laboratory Data:
Laboratory Results
01/25/25 07:33
Laboratory Results
PT 19.5 Sec (11.4-14.6) H 01/22/25 00:25
INR 1.62 01/22/25 00:25
APTT 32.8 Sec (23.4-35.0) 01/22/25 00:25
Phosphorus 4.0 mg/dl (2.5-4.5) 01/21/25 20:11
Magnesium 1.8 mg/dl (1.6-2.3) 01/22/25 04:06
Total Bilirubin 0.2 mg/dl (0.2-1.3) 01/21/25 20:11
AST 18 U/L (17-59) 01/21/25 20:11
ALT 14 U/L (0-50) 01/21/25 20:11
Alkaline Phosphatase 56 U/L (38-126) 01/21/25 20:11
Vital Signs and I&O:
Vital Signs
Temp Pulse Resp BP Pulse Ox
97.7 F 71 18 109/66 97
01/25/25 07:00 01/25/25 07:00 01/25/25 07:00 01/25/25 07:00 01/25/25 07:00
I&O
01/24/25 01/25/25 01/26/25
06:59 06:59 06:59
Intake Total 840 / 840 480 / 480
Output Total 700 / 700
Balance 140 / 140 480 / 480
Physical Exam
Physical Exam
HEENT: Anicteric
Cardiology: Normal Sinus Rhythm
Pulmonary: Clear
GI: Soft, Non Distended, Non Tender and Normal Bowel Sounds
Neuro: Non Focal
[2025-01-25] MEDS: NSS (PRESERVATIVE FREE) 10 ML IV ×2 (09:34→20:02)
[2025-01-25] MEDS: PROTONIX IV 40 MG IV ×2 (09:34→20:02)
[2025-01-25] MEDS: NEURONTIN 100 MG PO ×2 (09:38→19:59)
[2025-01-25] MEDS: MYRBETRIQ EXTENDED RELEASE 50 MG PO (09:38)
[2025-01-25] MEDS: ZYLOPRIM 100 MG PO ×3 (09:39→19:59)
[2025-01-25] MEDS: LIORESAL 10 MG PO ×2 (09:39→19:59)
[2025-01-25] MEDS: ZYLOPRIM 300 MG PO (09:39)
[2025-01-25] MEDS: LEXAPRO 5 MG PO (09:40)
[2025-01-25 09:41] LABS: Blood Urea Nitrogen 13 mg/dl (9-20); Calcium 8.3 mg/dl (8.4-10.2); Carbon Dioxide 28 mmol/L (22-30); Chloride 108 mmol/L (98-107); Estimated Creatinine Clearance 85 ml/min; Glucose 98 mg/dl (70-99); Potassium 3.7 mmol/L (3.5-5.1); Sodium 138 mmol/L (135-145); eGFR > 60.00
--- NOTE | 2025-01-25 11:23 | W.PN.CARDCBS ---
Today's Communication / Plan
-
Stable cardiology status for colonoscopy
Resume Lasix after colonoscopy
Impression / Plan
-
PCP: Dr. Javan Del Castillo at [facility]
Card: Dr. Simmons at [facility]
Impression:
Admitted with anemia and GIB 01/21/2025
Heme positive GI bleed
Hemorrhagic shock
Acute blood loss anemia
s/p 3 units PRBCs by 01/22/25 AM
NHL undergoing chemotherapy managed by Dr. Tyler
Leukocytosis
Permanent Afib
Chronic Xarelto OAC
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
Chronic HFmrEF
Depression
DNR
Records received from [facility] cardiology:
*2D echocardiogram 05/14/2021: Normal LV size and systolic function with EF 50-55% with severe left atrial dilatation, sclerotic aortic valve with mild aortic insufficiency. Moderate tricuspid regurgitation. Trace mitral regurgitation. Estimated
pulmonary artery pressure 44 mmHg assuming a right atrial pressure 8 mmHg.
*Office note dated 07/02/[address] Freeman: History of permanent atrial fibrillation nonischemic cardiomyopathy who underwent AV node ablation and Micra leadless pacemaker implant in 2020. Interrogation in June with normal battery
reserve and normal function.
Echo 12/07/2021: EF 45% with hypokinesis in the inferoseptum and inferior wall, moderate concentric LVH, GLS -16.2%, moderate TR with PAP 58 mmHg
Plan:
Stable cardiology status for colonoscopy
Continue to hold Xarelto until approved by GI to restart
Volume status reasonable at present
Patient is on outpatient Lasix 40 mg Friday//Friday and 20 mg Friday/Friday/Friday. Will resume after colonoscopy
Progress Note - Neuropathologist
Subjective
Date of Service: January 25, 2025
No chest pain or shortness of breath
Objective
Labs:
01/25/25 07:33
01/25/25 07:33
Labs
Hgb 8.3 g/dL (13.0-18.0) L 01/25/25 07:33
Hct 27.0 % (39.0-52.0) L 01/25/25 07:33
Plt Count 193 10^3/uL (130-400) 01/25/25 07:33
PT 19.5 Sec (11.4-14.6) H 01/22/25 00:25
INR 1.62 01/22/25 00:25
APTT 32.8 Sec (23.4-35.0) 01/22/25 00:25
Sodium 138 mmol/L (135-145) 01/25/25 07:33
Potassium 3.7 mmol/L (3.5-5.1) 01/25/25 07:33
BUN 13 mg/dl (9-20) 01/25/25 07:33
Creatinine 0.6 mg/dL (0.7-1.3) L 01/25/25 07:33
Glucose 98 mg/dl (70-99) 01/25/25 07:33
Vital Signs and I&O:
Vital Signs
Temp Pulse Resp BP Pulse Ox
97.7 F 71 18 109/66 97
01/25/25 07:00 01/25/25 07:00 01/25/25 07:00 01/25/25 07:00 01/25/25 07:00
Vital Signs
Temp Pulse Resp BP Pulse Ox
97.7 F 71 18 109/66 97
01/25/25 07:00 01/25/25 07:00 01/25/25 07:00 01/25/25 07:00 01/25/25 07:00
Intake & Output
01/23/25 01/24/25 01/25/25 01/26/25
06:59 06:59 06:59 06:59
Intake Total 1455 / 1455 840 / 840 480 / 480
Output Total 2150 / 2150 700 / 700
Balance -695 / -695 140 / 140 480 / 480
Physical Exam
Physical Exam
General: Well developed, well nourished in NAD.
Neck: Supple, no JVD, HJR, carotids +2 B/L, no bruits bilaterally.
Heart: Non displaced PMI, RRR, no murmurs, No S3, S4, no rubs.
Lungs: Scattered rhonchi
Extremities: No clubbing, cyanosis or edema bilaterally.
Neuro: Grossly nonfocal, awake, alert and oriented x3.
--- NOTE | 2025-01-25 12:09 | CM ---
CM reviewed chart, reviewed with Nurse, patient for Colonoscopy tomorrow. Will submit for auth for return to [facility] when stable. CM will continue to follow for all discharge planning needs.
Plan; colonoscopy tomorrow, return to [facility], will submit for auth when stable
[facility]
Dr. Roth
--- NOTE | 2025-01-25 14:46 | W.PN.HOSP.TC ---
Today's Communication/Plan
-
Prep Tonight for colonoscopy tomorrow
Assessment / Plan
Assessment / Plan
Assessment/Plan
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
fibrillation on Xarelto, pacemaker implantation, hypertension, GERD, BPH, depression, gout, vertigo, chronic lower extremity edema p/w for abnormal hemoglobin on outpatient labs from his care home, [facility].
Acute anemia
Shock
suspected upper GI bleed versus chemo versus lymphoma
hypotensive on presentation with systolic blood pressure 70s -improved
- Hgb 5.7 initially, received 3 units of red blood cells, hemoglobin improved to 8.4 and has remained stable. No bleeding noted.
- Was in ICU previously, now on tele
- Continue IV PPI
- Trend H&H
- GI consultation appreciated, completed EGD 01/24, no bleeding or ulcers identified
Plan for colonoscopy 01/26
Non-Hodgkin's lymphoma
- On chemo last dose, was last Friday
- [facility]
Permanent Atrial Fibrillation
Permanent pacemaker
- Held Xarelto and metoprolol
- Resume stepwise per cardiology management given EGD results
Chronic heart failure with moderately reduced EF, EF was 45% in 2021 echo
-Patient refusing ekg/echo
-Holding home Lasix for now due to hypotension
-Lasix 20 mg IV given earlier this admission in the context of patient receiving several PRBC transfusions
-Depending on hemodynamics, resume outpatient Lasix -- BP seems soft and patient does not seem to be in exacerbation
-Also depending on hemodynamics, resume (when able) metoprolol succinate 25 mg daily -- appreciate cardiology
-Home EMILIANO-I to be resumed stepwise
Chronic ambulatory dysfunction
-Uses cane at baseline
-PT/OT consult
GERD
Hiatal hernia
- PPI
BPH
-Resume Flomax
Depression
-Continue Abilify and Escitalopram
Insomnia
- On trazodone
History of vertigo
-Meclizine as needed
Gout
-Continue allopurinol
Chronic Pain
-oxy and tramadol continued
DVT Prophylaxis�SCDs
CODE STATUS�DNR
Anticipated Discharge: 24 - 48 hours
Subjective/Interval History
-
Date of Service: January 25, 2025
Patient denies any acute issues overnight. He feels very annoyed to still be in the hospital. He does agree to colonoscopy tomorrow.
Objective Data
-
Labs:
Laboratory Results
01/25/25
07:33
WBC 5.4
Hgb 8.3 L
Hct 27.0 L
Plt Count 193
Sodium 138
Potassium 3.7
Chloride 108 H
Carbon Dioxide 28
BUN 13
Creatinine 0.6 L
Glucose 98
Calcium 8.3 L
Vital Signs:
Vital Signs
Temp Pulse Resp BP Pulse Ox
98.2 F 70 18 108/61 95
01/25/25 12:34 01/25/25 12:34 01/25/25 12:34 01/25/25 12:34 01/25/25 12:34
I&O
01/24/25 01/25/25 01/26/25
06:59 06:59 06:59
Intake Total 840 / 840 480 / 480
Output Total 700 / 700
Balance 140 / 140 480 / 480
Review of Systems
-
All other systems: Reviewed and negative
Physical Exam
-
General: No Apparent Distress
HEENT: Moist Mucous Membranes, Anicteric and PERRLA
Respiratory: Clear to Auscultation; Negative Wheezes, Rales or Rhonchi
Cardiac: Regular Rhythm and S1/S2; Negative Murmur, Rub or Gallop
GI: Soft, Nontender, Nondistended and Normal Bowel Sounds
Musculoskeletal: No Edema
Skin: Warm and Dry; Negative Rash, Ulcers or Lesions
Neuro: Awake and AO x 3
Hematologic / Lymphatic: No Lymphadenopathy
Psych: Calm
Data Reviewed
-
Diagnostic Radiology: Report Reviewed by me
Medical Tests (Nuc Med, Echo etc): Report Reviewed by me, Discussed with Physician and Discussed with Family
Labs: Labs Reviewed by me, Discussed with Physician and Discussed with Patient
Old Records: Reviewed
[2025-01-25] MEDS: REMERON 15 MG PO (17:38)
[2025-01-25] MEDS: FLOMAX 0.4 MG PO (17:38)
[2025-01-25] MEDS: ABILIFY 2 MG PO (17:38)
[2025-01-25] MEDS: NULYTELY SOLUTION 4 LITERS PO (18:07)
[2025-01-25] MEDS: XALATAN OPHTHALMIC SOLUTION 1 DROP BOTH EYES (20:02)
[2025-01-26] VITALS (7 sets, daily range): BP systolic 106–131; BP diastolic 66–74
--- NOTE | 2025-01-26 03:44 | DOWNTIME ---
There was a [employer] Downtime on 01/26/2025 from 0100 to 01/26/2025 at 0215. Downtime documentation of patient's care, including medication administrations, has been reconciled in the electronic record per guidelines. Refer to the
patient's paper chart under the miscellaneous tab to see printed paper medication records and downtime forms.
[2025-01-26 06:05] LABS: Hematocrit 26.1 % (39.0-52.0); Hemoglobin 8.0 g/dL (13.0-18.0); Mean Corp Hgb Conc. 30.7 g/dL (33.0-37.0); Mean Corpuscular Volume 87.3 fL (80.0-94.0); Platelet Count 184 10^3/uL (130-400); Red Cell Dist. Width 19.7 % (11.5-14.5)
[2025-01-26 06:32] LABS: Blood Urea Nitrogen 9 mg/dl (9-20); Calcium 8.0 mg/dl (8.4-10.2); Carbon Dioxide 27 mmol/L (22-30); Chloride 107 mmol/L (98-107); Estimated Creatinine Clearance 85 ml/min; Glucose 91 mg/dl (70-99); Potassium 3.7 mmol/L (3.5-5.1); Sodium 137 mmol/L (135-145); eGFR > 60.00
--- NOTE | 2025-01-26 10:19 | W.PN.UPDATE ---
Update Note
Progress Note Update
Colonoscopy done
Diverticulosis sigmoid and descending colon
O/W normal
REC:
Resume diet
OP capsule endoscopy.
OK to resume xarelto
[2025-01-26] MEDS: ZYLOPRIM 100 MG PO ×2 (11:39→15:39)
[2025-01-26] MEDS: NEURONTIN 100 MG PO (11:39)
[2025-01-26] MEDS: MYRBETRIQ EXTENDED RELEASE 50 MG PO (11:39)
[2025-01-26] MEDS: LEXAPRO 5 MG PO (11:39)
[2025-01-26] MEDS: NSS (PRESERVATIVE FREE) 10 ML IV (11:40)
[2025-01-26] MEDS: PROTONIX IV 40 MG IV (11:40)
[2025-01-26] MEDS: ZYLOPRIM 300 MG PO (11:44)
[2025-01-26] MEDS: LIORESAL 10 MG PO (11:44)
--- NOTE | 2025-01-26 12:19 | CM ---
Addendum entered by Tiara Harvey 01/26/25 13:48:
Patient for discharge today, seen bedside, aware of plan to return to [facility]. Natalie liaison at [facility] updated with time, 5:00 p.m. IMM verbally reviewed, declined need for copy, placed in chart. Patient agreeable for CM to call son,
Edward, to update. Call to patients son, aware of d/c plan, inquiring if Physician can call son to provide medical updates- TT with request.
Plan; return to [facility], 5:00 p.m. ambulance transport
Report: [phone], ask for nursing station

Original Note:
CM reviewed chart, patient for colonoscopy today. Reviewed therapy notes, per OT, no skilled need, PT, return to [place], patient appears at baseline, no auth required to return to [facility]. Patient will require ambulance transport back to facility, forms on
chart. CM will continue to follow for all discharge planning needs.
Plan; return to [facility] when stable
Report: [phone], ask for nursing station
[2025-01-26] MEDS: MUCINEX 600 MG PO (13:02)
--- NOTE | 2025-01-26 13:40 | W.DCSUMMARY ---
Discharge Summary
Discharge Data
Date of Admission: 01/21/25
Date of Discharge: 01/26/25
Total time spent discharging patient (in min): 40
-
Pending Results: No
Hospital Course
Attending physician on day of discharge:
Peyton Lyn MD
Admission diagnosis:
Anemia
Discharge diagnosis:
Suspected GI bleed
Secondary diagnoses:
Hypotension
A-fib
Non-Hodgkin's lymphoma
CHF
Consultations:
Cardiology
GI
Procedures:
Endoscopy
Colonoscopy
Hospital course:
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
fibrillation on Xarelto, pacemaker implantation, hypertension, GERD, BPH, depression, gout, vertigo, chronic lower extremity edema p/w for abnormal hemoglobin on outpatient labs from his retirement, [facility]. Patient was hypotensive
presentation, and anemic with hemoglobin 5.7, received 3 units of red blood cells, hemoglobin improved and remained stable, BP improved as well. BP meds were held including Lasix, ACEi, beta-janet. Patient Xarelto was also held. He underwent
endoscopy and colonoscopy, which only revealed hiatal hernia and diverticulosis but no bleeding site. He is scheduled to have outpatient capsule endoscopy. His Xarelto and Lasix were resumed.
Physical exam on discharge:
Gen: NAD
HEENT: PERRLA, EOMI, MMM, neck supple
Resp: Lungs CTAB, no W/R/R
GI: soft, NT/ND/NABS
MSK: No edema
Skin: warm and dry, no rash, ulcer or lesions
Heme: No LAD
Psych: Calm
Neuro: AAOx3
Discharge disposition:
prison
Discharge Plan
-
Patient Disposition: Fpc/SNF
Discharge Diagnosis/Procedures: Anemia, GI Bleed
Condition: Good
Diet: Regular
Activity: As tolerated
Referrals:
Javan Del Castillo DO [Family Provider, Internal Medicine]
Markos Baca MD [Active, Cardiology]
Ilda Jade MD [Active, Gastroenterology]
Additional Discharge Medication Instructions: You will have an outpatient capsule endoscopy with GI
Prescriptions:
Continued
pantoprazole [Protonix] 20 MG tablet,delayed release (DR/EC)
40 mg PO DAILY
tamsulosin 0.4 MG capsule
0.4 mg PO DAILY
meclizine 25 MG tablet
25 mg PO DAILYPRN PRN (Reason: dizziness)
gabapentin 100 MG capsule
100 mg PO BID
latanoprost 0.005 % Drops
1 drp BOTH EYES HS
allopurinol 100 mg Tablet
100 mg PO TID
docusate sodium 100 mg Capsule
200 mg PO BID
mirtazapine 15 mg Tablet
15 mg PO HS
metoprolol succinate 25 mg Tablet Extended Release 24 Hr
25 mg PO DAILY
aripiprazole 2 mg Tablet
2 mg PO HS
oxycodone 5 mg Tablet
5 mg PO Q6HPRN PRN (Reason: breathru pain) Qty: 6 0RF
trazodone 50 mg Tablet
50 mg PO HS
tramadol 50 mg Tablet
50 mg PO Q6HPRN PRN (Reason: moderate pain)
mirabegron [Myrbetriq] 50 mg Tablet Extended Release 24 Hr
50 mg PO HS
furosemide 40 mg tablet
40 mg PO TUTHSA
acetaminophen 325 mg Tablet
650 mg PO Q6HPRN PRN (Reason: mild pain)
potassium chloride 10 mEq tablet extended release
10 meq PO DAILY
allopurinol 300 mg tablet
300 mg PO DAILY@0900
furosemide 20 mg tablet
20 mg PO MOWEFR
escitalopram oxalate 5 mg tablet
5 mg PO DAILY
Xarelto 20 mg tablet
20 mg PO HS
biotin 10 mg Tablet
10 mg PO DAILY
sennosides [senna] 8.6 mg Tablet
8.6 mg PO DAILY
vitamin A 2,400 mcg Capsule
2,400 mcg PO DAILY
ketoconazole 2 % Shampoo
1 applic TOPICAL WE
beta carotene 7,500 mcg (25,000 unit) Capsule
7,500 mcg PO DAILY
ondansetron HCl 8 mg Tablet
8 mg PO TID
therapeutic multivitamin Tablet
1 tab PO DAILY
prochlorperazine maleate [Compazine] 10 mg Tablet
10 mg PO Q6HPRN PRN (Reason: nausea)
guaifenesin [Alee-Tussin] 100 mg/5 mL Liquid
100 mg PO Q6HPRN PRN (Reason: cough)
lorazepam 0.5 mg Tablet
0.5 mg PO DAILYPRN PRN (Reason: anxiety)
magnesium hydroxide [Milk of Magnesia] 400 mg/5 mL Suspension
2,400 mg PO DAILYPRN PRN (Reason: if no bm by 3rd day)
bisacodyl [Dulcolax (bisacodyl)] 10 mg Suppository
10 mg DC DAILYPRN PRN (Reason: if no bm aftr mom)
Fleet Enema 19-7 gram/118 mL Enema
118 ml DC DAILYPRN PRN (Reason: if no bm aftr dulcolax)
hydroxyzine HCl 25 mg Tablet
25 mg PO BID
nystatin 100,000 unit/gram Powder
1 applic TOPICAL BID
lenalidomide 5 mg Capsule
5 mg PO HS
cholecalciferol (vitamin D3) [Vitamin D3] 25 mcg (1,000 unit) Tablet
25 mcg PO DAILY
guaifenesin [Mucinex] 600 mg Tablet Extended Release 12hr
600 mg PO BID
Held
lisinopril 2.5 mg tablet
2.5 mg PO DAILY
Hold Instructions: Resume on 02/02/25. hold until SBP consistently >120
Discharge Orders:
Discharge Patient (As Directed); Ordered 01/26/25
Ordered By: Peyton Lyn
Discharge Date and Time
Print Language: GIBRALTARIAN
--- NOTE | 2025-01-26 13:43 | W.PN.UPDATE ---
Update Note
Progress Note Update
Stanley and Madie resumed by primary service.
Will sign off, call with questions
Patient can follow-up with outpatient sales operations consultant at outside facility
[2025-01-26] MEDS: PREVNAR 20 0.5 ML IM (15:39)
[2025-01-26] MEDS: ABILIFY 2 MG PO (17:24)
[2025-01-26] MEDS: FLOMAX 0.4 MG PO (17:24)
[2025-01-26] MEDS: REMERON 15 MG PO (17:24)
--- NOTE | 2025-01-26 17:54 | PTCARENOTE ---
Report called in to [facility]. Awaiting EMS transport back to facility. INT removed. Port de-accessed. Telemetry removed.
== END 2025-01-26 06:55 | DRG 377 ==
LOC: 4 WEST ACU 22:39
PROVIDERS: Hospitalist; Physician Assistant Medical; Registered Nurse; Specialist; ADMITTING PHYSICIAN Internal Medicine; ATTENDING PHYSICIAN Internal Medicine; CONSULT PHYSICIAN Internal Medicine Gastroenterology; EMERGENCY PHYSICIAN Emergency Medicine; FAMILY PHYSICIAN Internal Medicine; OTHER PHYSICIAN Internal Medicine Cardiovascular Disease
PROC: 30243N1 Transfusion of Nonautologous Red Blood Cells into Central Vein, Percutaneous Approach (ICD-10-PCS; 2025-01-21)
PROC: 30233N1 Transfusion of Nonautologous Red Blood Cells into Peripheral Vein, Percutaneous Approach (ICD-10-PCS; 2025-01-22)
PROC: 0DB68ZX Excision of Stomach, Via Natural or Artificial Opening Endoscopic, Diagnostic (ICD-10-PCS; 2025-01-24)
PROC: 0DJD8ZZ Inspection of Lower Intestinal Tract, Via Natural or Artificial Opening Endoscopic (ICD-10-PCS; 2025-01-26)
PROC: 3E0234Z Introduction of Serum, Toxoid and Vaccine into Muscle, Percutaneous Approach (ICD-10-PCS; 2025-01-26)
DX: K57.31 Diverticulosis of large intestine without perforation or abscess with bleeding (principal); J69.0 Pneumonitis due to inhalation of food and vomit; R57.8 Other shock; C85.90 Non-Hodgkin lymphoma, unspecified, unspecified site; I50.22 Chronic systolic (congestive) heart failure; I48.21 Permanent atrial fibrillation; D62 Acute posthemorrhagic anemia; F11.20 Opioid dependence, uncomplicated; I42.8 Other cardiomyopathies; Q39.9 Congenital malformation of esophagus, unspecified; D50.9 Iron deficiency anemia, unspecified; F32.A Depression, unspecified; G89.29 Other chronic pain; M19.90 Unspecified osteoarthritis, unspecified site; E78.5 Hyperlipidemia, unspecified; R26.2 Difficulty in walking, not elsewhere classified; G47.00 Insomnia, unspecified; I11.0 Hypertensive heart disease with heart failure; K21.9 Gastro-esophageal reflux disease without esophagitis; K44.9 Diaphragmatic hernia without obstruction or gangrene; K59.09 Other constipation; M10.9 Gout, unspecified; N40.0 Benign prostatic hyperplasia without lower urinary tract symptoms; Z66 Do not resuscitate; Z23 Encounter for immunization; Z87.442 Personal history of urinary calculi; Z88.1 Allergy status to other antibiotic agents; Z88.2 Allergy status to sulfonamides; Z79.01 Long term (current) use of anticoagulants; Z95.0 Presence of cardiac pacemaker; Z92.21 Personal history of antineoplastic chemotherapy; Z82.49 Family history of ischemic heart disease and other diseases of the circulatory system; Z87.01 Personal history of pneumonia (recurrent)
CPT/HCPCS: 36430; 71045; 80048; 80053; 81003; 81015; 82962; 83735; 83880; 84100; 85014; 85018; 85025; 85027; 85610; 85730; 86850; 86900; 86901; 86920; 87070; 87086; 88305; 88342; 90677; 96361; 96374; 97116; 97163; 97165; 97530; 99291; G0009; P9016

== ENCOUNTER 2025-01-28 09:11 | Inpatient (IN) | payer OTHER, SELFPAY ==
[2025-01-28] VITALS (37 sets, daily range): BP systolic 78–116; BP diastolic 53–84
--- NOTE | 2025-01-28 05:58 | ED.GENMED ---
History of Present Illness
General
Chief Complaint: Nose Bleed
Time Seen by Provider: 01/28/25 05:58
History of Present Illness
History of Present Illness:
FOCUSED PAST MEDICAL HISTORY
- A-fib on Xarelto, high blood pressure, non-Hodgkin's lymphoma
REVIEW OF OLD RECORDS
- I reviewed records, the patient was admitted here for 5 days up until 2 days ago with suspected GI bleed/anemia. He was hypotensive at that time and lisinopril was held.
Note:
CHIEF COMPLAINT(S)
Epistaxis (nosebleed)
HISTORY OF PRESENT ILLNESS
The patient is a 79-year-old male with a history of recent hypoxia and atrial fibrillation currently on anticoagulation therapy with Rivaroxaban. He presents to the emergency department with significant epistaxis primarily from the right nostril.
The patient states, 'I stopped it for a little bit this morning.' The bleeding is being managed with pressure and packing, and an attempt is being made to cauterize the site of bleeding.
The patient also has a chronic cough and was started on 4 L/min of nasal cannula oxygen 2 days ago. Of note, the patient did screen positive with a suicidal screening question however he states that this is chronic and refuses any other evaluation
and refuses to answer any other questions about this.
MEDICATIONS
The patient is currently taking Rivaroxaban (Xarelto).
REVIEW OF SYSTEMS
- Hematology: Significant epistaxis from the right nostril.
- Respiratory: Recent history of hypoxia.
PHYSICAL EXAM
General: Alert, ongoing bleeding noted
Skin: Warm, dry.
Head: Normocephalic, atraumatic.
Neck: Supple, trachea midline.
Eye, Ears, Nose, Mouth, and Throat: Oral mucosa moist. Significant bleeding from the right nostril, attempts made to pack and cauterize.
Cardiovascular: Normal peripheral perfusion, no edema.
Respiratory: Some coarse breath sounds, wet sounding cough
Gastrointestinal: Abdomen nondistended.
Back: Normal range of motion, normal alignment.
Musculoskeletal: Normal range of motion, normal strength.
Neurological: Alert and oriented to person, place, time, and situation, no focal neurological deficit observed.
Psychiatric: Uncooperative times, argumentative
PROBLEM LIST
- Acute: Epistaxis, Hypoxia
- Chronic: Atrial Fibrillation
PLAN
1. Continue applying pressure to the nasal bleeding site.
2. Silver nitrate cauterization
3. Topical TXA
4. Surgicel
5. Thrombin
DIFFERENTIAL DIAGNOSIS
The Differential Diagnosis includes, in no particular order and is not limited to:
1. Anticoagulation-related bleeding
2. Hypertension-related epistaxis
3. Coagulation disorders
4. Nasal trauma
5. Nasal septum deviation
6. Hereditary hemorrhagic telangiectasia
7. Nasal polyps
8. Sinusitis
9. Foreign body in the nose
10. Neoplasm of the nasal cavity
RADIOLOGY
- Wart noted on the right, low lung volumes, suspect bibasilar atelectasis/parenchymal opacities possibly slightly improved compared to 01/22/2025
EKG
-
LABS
- White count 7.8, hemoglobin 8.0
UPDATE
- As patient was placed on oxygen the other day, I suspect that the nasal cannula dried out the nasal mucosa and he is on Xarelto. Suspect anterior bleed.
SUMMARY OF ENCOUNTER
The patient, a 79-year-old male with a history of hypoxia and atrial fibrillation on Rivaroxaban, presented to the emergency department with significant epistaxis from the right nostril. Initial management included applying local pressure and using
tranexamic acid (TXA)-soaked cotton. An attempt was made to cauterize a likely anterior bleeding site, despite poor visualization. A 5.5 cm Rapid Rhino soaked in additional TXA was placed. Further treatment included additional Surgicel and a
thrombin-soaked cotton ball for distal oozing. The patient arrived hypotensive with a systolic blood pressure in the 70s. His hemoglobin level was 8.0, consistent with previous hospital discharge levels. Due to the ongoing cough and suspected lower
blood volume, admission for further evaluation was planned.
ASSESSMENT
The patient�s epistaxis is likely related to anticoagulation therapy with recurrent nosebleed despite pressure and packing. Hypotension may be secondary to blood loss.
EMERGENCY TREATMENTS ADMINISTERED
Local pressure, TXA-soaked cotton, cauterization, Rapid Rhino device placement, Surgicel, and thrombin-soaked cotton ball.
PLAN
Admit the patient for further evaluation and management of epistaxis, potential continuation of anticoagulation therapy, and monitoring of potential complications related to hypotension and anemia.
INDEPENDENT REVIEW OF LABS AND INTERPRETATION OF TESTS
My independent review of the hemoglobin level is 8.0 g/dL, consistent with previous levels upon recent discharge.
MEDICATION RECONCILIATION
Rivaroxaban (Xarelto), home medication, noted.
MEDICAL DECISION MAKING
- Number and Complexity of Problems Addressed: Chronic conditions affecting care include atrial fibrillation, recent hypoxia, and anticoagulation therapy. Differential diagnosis includes anticoagulation-related bleeding, hypertension-related
epistaxis, coagulation disorders, nasal trauma, nasal septum deviation, hereditary hemorrhagic telangiectasia, nasal polyps, sinusitis, foreign body in the nose, and neoplasm of the nasal cavity.
- Data:
Category 1
- Clinical information obtained from hemoglobin levels.
- Risk:
Consideration of admission due to complexity and risk factors including anticoagulation therapy, hypotension, and anemia.
DIAGNOSIS
- Epistaxis (ICD-10: R04.0)
- Hypotension (ICD-10: I95.9)
- Anemia (ICD-10: D64.9)
Past History
Past History
ED Past Medical History: Arrthythmia and Cancer (NHL)
ED Past Surgical History: Other (dental)
Social History
Tobacco: Non-smoker
Alcohol: None
Drug: None
Personal:
Living: longterm
Phy Exam
Physical Exam
Physical Exam:
See HPI
Course
Orders/Labs/Results
Orders:
Orders
01/28/25 06:03
0.9% Sodium Chloride 500 ml [Nss] 500 ml IV BOLUS
Tranexamic Acid 1,000 mg .ROUTE .STK-MED ONE
01/28/25 06:04
CR Chest Portable - 1 View Urgent
Comment:
Reason For Exam: hypoxia
Reason Study Needs to be Portable: Unable to Transport
01/28/25 06:09
Complete Blood Count/With Diff Urgent
Comprehensive Metabolic Panel Urgent
NT-proBNP Urgent
Blood Culture Q30M
SAMEER Source: Blood/Venous
Specimen Description:
Silver Nitrate Applicator 1 each .ROUTE .STK-MED ONE
01/28/25 06:10
Type+Screen Urgent
Lactic Acid Q4H
Comment: CANCEL 2nd LACTIC ACID IF 1st LACTIC ACID IS LESS THAN 2
Silver Nitrate Applicator 1 each .ROUTE .STK-MED ONE
01/28/25 06:11
Silver Nitrate Applicator 1 each .ROUTE .STK-MED ONE
01/28/25 06:21
Blood Culture Q30M
SAMEER Source: Blood/Venous
Specimen Description:
01/28/25 06:32
Acetaminophen [Tylenol] 1,000 mg PO NOW STA
01/28/25 06:41
Electrocardiogram (*1) Urgent
Reason for Study: Atrial Fibrillation
01/28/25 06:42
EKG- Treatment ONCE
01/28/25 07:00
Thrombin Topical (Bovine) [Thrombin-Jmi 15063 Unit Vial] 20,000 units TOPICAL ONCE ONE
01/28/25 07:05
Case Management Consult ONCE
Case Management Consult: Discharge Planning
Requested By:: NURSING
Comment: PT. would like to change the facility where he currently resides.
01/28/25 07:26
Cefepime HCl [Maxipime] 1,000 mg IV NOW STA
01/28/25 08:13
Vancomycin [Vancocin] 1,500 mg 0.9% Sodium Chloride 500 ml [Nss] 500 ml IV NOW
01/28/25 08:32
Admit/Transfer Patient As Directed
Co-Sign Provider:
Level of Care: Inpatient admission
Assign to:: IMU- Intermediate Care
Physician / Group: Hospitalist
Diagnosis: Pneumonia, nose bleed
Reason for Hospitalization: Pneumonia, nose bleed
Expected length of stay greater than two midnights?: Yes
ELOS- Estimated Length of Stay in days: 3
I certify the patient meets the requirements for IP care: Yes
PRN Pain Medication Management As Directed
May give lesser potent ordered pain med per pt: Yes
preference::
Protocol:: Medication orders for pain may be administered in a
manner that supports deferring to patient preference
when the pt is:
- Requesting an ordered lesser potent pain medication.
Least to most potent pain medications are defined
as: acetaminophen < NSAID < tramadol < opioids
(morphine, oxycodone, hydromorphone).
- Requesting a lesser dose of the same medication IF
ORDERED.
- Requesting a less intrusive route of administration
if both routes are prescribed by the provider (PO <
IV).
01/28/25 08:33
Code Status As Directed
Resuscitation Status: Do not resuscitate
Reached after discussion with pt or family/Healthcare POA: Yes
DNR Bracelet Application ONCE
01/28/25 08:40
Procalcitonin Stat
If negative, will antibiotics be d/c'd or not started: Yes
Does the patient have renal or hepatic impairment?: No
Any recent (w/in 48 hrs) physiologic stress (CPR, rhabdo): No
01/28/25 10:15
Lactic Acid Q4H
Comment: CANCEL 2nd LACTIC ACID IF 1st LACTIC ACID IS LESS THAN 2
Abnormal Lab Results
01/28/25
06:09
RBC 2.98 L 10^6/uL
(4.70-6.10)
Hgb 8.0 L g/dL
(13.0-18.0)
Hct 27.0 L %
(39.0-52.0)
MCH 26.8 L pg
(27.0-31.0)
MCHC 29.6 L g/dL
(33.0-37.0)
RDW 19.4 H %
(11.5-14.5)
Abs Immat Gran (auto) 0.1 H 10^3/uL
(0-0.05)
Absolute Lymphs (auto) 0.5 L 10^3/uL
(1.2-3.4)
Absolute Monos (auto) 1.2 H 10^3/uL
(0.1-0.6)
Immature Gran % 0.6 H %
(0-0.5)
Lymphocytes % 6.5 L %
(20.5-51.1)
Monocytes % 14.8 H %
(1.7-9.3)
Glucose 118 H mg/dl
(70-99)
Total Protein 5.2 L g/dl
(6.3-8.2)
Albumin 3.1 L g/dl
(3.5-5.0)
01/28/25 06:09
01/28/25 06:09
Vital Signs
Initial and Last Documented VS:
Initial Vital Signs
Temp Pulse Resp BP Pulse Ox
36.4 C 78 18 78/56 91
01/28/25 05:54 01/28/25 05:54 01/28/25 05:54 01/28/25 05:54 01/28/25 05:54
Last Documented Vital Signs
Temp Pulse Resp BP Pulse Ox
36.4 C 79 20 94/57 88
01/28/25 05:54 01/28/25 09:30 01/28/25 09:30 01/28/25 09:30 01/28/25 09:30
Procedures
Nosebleed
Drug treatment: Tranexamic Acid
Treatment: local pressure applied, Silver nitrate cautery, Surgical (Surgicel) and other (rapid rhino)
Post treatment bleeding: still some oozing
*Pulse Oximetry
Patient hypoxic: no
*Critical Care Note
Total Time (30-74mins, 75-104mins- exclusive of procedures): Not Applicable
ED Attending Note
-
Portions of this chart may have been created with voice recognition software.� Occasional wrong word or��sound alike� substitutions may have occurred due to the inherent limitations of voice recognition software.
Discharge Plan
Departure
Patient Disposition: Admit
Date of Disposition: 01/28/25
Time of Disposition: 08:21
Presentation/result/management discussed w/ accepting MD/DO: Hospitalist
Discharge Problem:
Pneumonia, Acute anterior epistaxis
Interventions
Interventions:
*Risk Screen - Suicide Last Done: 01/28/25 06:05
*General Assessment Last Done: 01/28/25 06:09
*Neglect/Abuse Screening Last Done: 01/28/25 06:09
*ED- Fall Risk Assessment Last Done: 01/28/25 06:09
*ED COVID-19 Vaccine History Last Done: 01/28/25 06:09
ED-EENT Assessment Last Done: 01/28/25 06:04
[2025-01-28] MEDS: NSS 500 IV ×2 (06:19→09:43)
[2025-01-28 06:21] LABS: Hematocrit 27.0 % (39.0-52.0); Hemoglobin 8.0 g/dL (13.0-18.0); Mean Corp Hgb Conc. 29.6 g/dL (33.0-37.0); Mean Corpuscular Volume 90.6 fL (80.0-94.0); Nucleated Red Blood Cells % 0 % (-); Platelet Count 183 10^3/uL (130-400); Red Cell Dist. Width 19.4 % (11.5-14.5)
[2025-01-28] MEDS: TYLENOL 1000 MG PO (06:34)
[2025-01-28] MEDS: THROMBIN 20000 UNIT TOPICAL (06:57)
[2025-01-28 07:18] LABS: ALT (SGPT) 12 U/L (0-50); AST (SGOT) 17 U/L (17-59); Albumin 3.1 g/dl (3.5-5.0); Alkaline Phosphatase 56 U/L (38-126); Blood Urea Nitrogen 12 mg/dl (9-20); Calcium 8.4 mg/dl (8.4-10.2); Carbon Dioxide 30 mmol/L (22-30); Chloride 105 mmol/L (98-107); Glucose 118 mg/dl (70-99); Potassium 4.0 mmol/L (3.5-5.1); Sodium 138 mmol/L (135-145); Total Protein 5.2 g/dl (6.3-8.2); eGFR > 60.00
--- NOTE | 2025-01-28 07:56 | HPS.HSE ---
Family Physician
-
Family Physician: Javan Del Castillo, DO
Chief Complaint
-
Nose bleed, pneumonia
History of Present Illness
79-year-old male with past medical history of non-Hodgkin's lymphoma s/p R-CHOP, paroxysmal atrial fibrillation on Xarelto, history of GI bleed, HFrEF (echo 11/30 EF 45%), hyperlipidemia, depression, back pain, osteoarthritis, iron deficiency
anemia, glaucoma, GERD with recent admission from 01/21 to 01/26 for suspected acute on chronic blood loss anemia due to GI bleed presents to the hospital for a nosebleed and incidentally found to have pneumonia. During his last admission upon
presentation his hemoglobin was 5.7, he was hypotensive with dark stools. He received 3 units of packed red blood cells and endoscopy and colonoscopy did not reveal any acute bleeding sites. He was scheduled to have an outpatient capsule
endoscopy. He went back to [facility] and patient noted to be a bit hypoxic and put on 4 L of oxygen. This morning around 4 AM, patient's nose started profusely bleeding which brought him to the ER. He believes it is due to the oxygen irritating
his nose. He has a history of nosebleeds for which he saw ENT many years ago.
Of note, patient states he was diagnosed with pneumonia 5 to 6 weeks ago treated with a long antibiotic course. He does not recall the name of the antibiotics. He states since then he has had a chronic cough that has seemed to have gotten worse.
He endorses chills but no fevers. He endorses overall fatigue. His cough has recently become more wet, but he does not recall his phlegm color. He denies any runny nose, sore throat, headaches or diarrhea. He denies any recent melena or
hematochezia. He denies any N/V/D, dysuria or lower extremity swelling. He does endorse suicidal ideation, however states this has been ongoing and he doesn't want to talk to anyone or see anyone about it because it is 'private.'
Also of note, the patient is receiving treatment for his non-hodgkins lymphoma with Dr. Tyler since 2021 and about 5-6 weeks ago they have to change his regimen due to 'low blood counts.' He currently gets infusions every few weeks but he is not
sure of what.
In the ED, the patient was hypotensive with BP 78/56, HR 78, RR 18, afebrile with oxygen saturation dipping in the high 80s. He refuses any oxygen stating 'they will not force me to breath through that damn thing.' WBC 7.8, hg 8.0 stable with hg
since last admission, BMP unremarkable. Chest x-ray revealed possible LLL pneumonia. He received a 500cc bolus of fluid after which his BP stabilized around 90/60 then went back down to 80s/50s. TXA x1, silver nitrate x3 and thrombin x2 with
epistaxis balloon catheter which appears to have managed the bleeding. ENT has been consulted. We are admitting for further treatment of his pneumonia and epistaxis.
Medical History
Past Medical History
Past Medical History: Reports Other (Per below )
Additional Past Medical History:
1. Non-Hodgkin's lymphoma 2021 s/p R-CHOP
2. HFrEF (last echo 11/2021 EF 45%)
3. Permanent a.fib s/p AV node ablation and Mirca leadless pacemaker implant 2020
4. HLD
5. History of GI bleed
6. Kidney stones
7. Osteoarthritis
8. Iron deficiency anemia
9. Glaucoma
10. GERD
11. Urinary issue (patient states not BPH)
12. Depression
13. Gout
Past Surgical History: Reports Other (Per below)
Additional Past Surgical History:
1. Hernia repair
2. AV node ablation
3. Mirca leadless pacemaker implant 2020
Social History
Tobacco: Non-smoker
Alcohol: None
Drug: None
Living: [facility]
Employment: Retired
Family History
Family History: Not pertinent
Allergies / Home Medications
Allergies reflects when Allergies were last updated in [employer].
Home Medications with original date entered in [employer]
Allergy/Medication List:
Allergies
Allergy/AdvReac Type Severity Reaction Status Date / Time
Sulfa (Sulfonamide Allergy Unknown Verified 01/28/25 06:52
Antibiotics)
Tetracyclines Allergy Unknown Verified 01/28/25 06:52
Home Medications
gabapentin 100 mg capsule 100 mg PO BID Neurological Condition 02/19/21
meclizine 25 mg tablet 25 mg PO DAILYPRN PRN dizziness 02/19/21
pantoprazole 20 mg tablet,delayed release (Protonix) 40 mg PO DAILY Gastrointestinal Issue 02/19/21
tamsulosin 0.4 mg capsule 0.4 mg PO DAILY Urinary Issue 02/19/21
allopurinol 100 mg tablet 100 mg PO TID Gout 05/09/23
aripiprazole 2 mg tablet 2 mg PO HS Mental health 05/09/23
docusate sodium 100 mg capsule 200 mg PO BID Constipation 05/09/23
latanoprost 0.005 % eye drops 1 drp BOTH EYES HS Eye Condition 05/09/23
metoprolol succinate 25 mg tablet,extended release 24 hr 25 mg PO DAILY Blood Pressure 05/09/23
mirtazapine 15 mg tablet 15 mg PO HS mental health 05/09/23
oxycodone 5 mg tablet 5 mg PO Q6HPRN PRN breathru pain #6 tabs 05/15/23
mirabegron 50 mg tablet,extended release 24 hr (Myrbetriq) 50 mg PO HS Urinary Issue 03/16/24
tramadol 50 mg tablet 50 mg PO Q6HPRN PRN moderate pain 03/16/24
trazodone 50 mg tablet 50 mg PO HS insomnia 03/16/24
acetaminophen 325 mg tablet 650 mg PO Q6HPRN PRN mild pain 01/21/25
allopurinol 300 mg tablet 300 mg PO DAILY@0900 Gout 01/21/25
escitalopram oxalate 5 mg tablet 5 mg PO DAILY Depression 01/21/25
furosemide 20 mg tablet 20 mg PO MOWEFR Fluid Retention/Swelling 01/21/25
furosemide 40 mg tablet 40 mg PO TUTHSA Fluid Retention/Swelling 01/21/25
potassium chloride 10 mEq tablet,extended release 10 meq PO DAILY Electrolyte Repletion 01/21/25
rivaroxaban 20 mg tablet (Xarelto) 40 mg PO HS Blood Clot Prevention/Tx 01/21/25
beta carotene 7,500 mcg (25,000 unit) capsule 7,500 mcg PO DAILY Supplement 01/22/25
biotin 10 mg tablet 10 mg PO DAILY Supplement 01/22/25
bisacodyl 10 mg rectal suppository (Dulcolax (bisacodyl)) 10 mg SD DAILYPRN PRN if no bm aftr mom 01/22/25
cholecalciferol (vitamin D3) 25 mcg (1,000 unit) tablet (Vitamin D3) 25 mcg PO DAILY Supplement 01/22/25
guaifenesin 100 mg/5 mL oral liquid (Alee-Tussin) 100 mg PO Q6HPRN PRN cough 01/22/25
guaifenesin 600 mg tablet, extended release 12 hr (Mucinex) 600 mg PO BID Congestion 01/22/25
hydroxyzine HCl 25 mg tablet 25 mg PO BID Mental Health/Anxiety 01/22/25
ketoconazole 2 % shampoo 1 applic topical WE Skin Issues 01/22/25
lenalidomide 5 mg capsule 5 mg PO HS Cancer 01/22/25
lorazepam 0.5 mg tablet 0.5 mg PO DAILYPRN PRN anxiety 01/22/25
magnesium hydroxide 400 mg/5 mL oral suspension (Milk of Magnesia) 2,400 mg PO DAILYPRN PRN if no bm by 3rd day 01/22/25
nystatin 100,000 unit/gram topical powder 1 applic topical BID groin/arm pits 01/22/25
ondansetron HCl 8 mg tablet 8 mg PO TID Nausea 01/22/25
prochlorperazine maleate 10 mg tablet (Compazine) 10 mg PO Q6HPRN PRN nausea 01/22/25
sennosides 8.6 mg tablet (senna) 8.6 mg PO DAILY Constipation 01/22/25
sodium phosphates 19 gram-7 gram/118 mL enema (Fleet Enema) 118 ml SD DAILYPRN PRN if no bm aftr dulcolax 01/22/25
therapeutic multivitamin 1 tab PO DAILY Supplement 01/22/25
vitamin A 2,400 mcg capsule 2,400 mcg PO DAILY Supplement 01/22/25
lisinopril 2.5 mg tablet 2.5 mg PO DAILY 01/28/25
Review of Systems
-
History Source: Patient
EENT: Reports Other (Nose bleed with epistaxis balloon catheter in right nostril. Crusted blood on lower face. )
Respiratory: Reports Cough and Trouble Breathing
Cardiac: Reports No Symptoms
Abdomen/GI: Reports No Symptoms and Other (No hematochezia or melena )
: Reports No Symptoms
Musculoskeletal: Reports Other (slight right lower extremity robertson pain)
Skin: Reports No Symptoms
Neurological: Reports No Symptoms
Psych: Reports Other (Argumentative and uncooperative at times )
Physical Exam
Vital Signs
Vital Signs
Temp Pulse Resp BP Pulse Ox
97.6 F 77 23 95/53 86
01/28/25 05:54 01/28/25 06:30 01/28/25 06:30 01/28/25 06:30 01/28/25 06:17
Physical Exam
General: Appears Chronically Ill and Other
HEENT: Other (Right nostril epistaxis balloon catheter, crusted blood over lower face, no pharyngeal erythema. Bluish tinge to lower lips. Refusing oxygen. )
Respiratory: Rhonchi (Bilateral lung cheung )
Cardiac: S1/S2 and Regular Rhythm
GI: Soft, Non Tender, Non Distended and Normal Bowel Sounds
Musculoskeletal: Other (No peripheral edema, discoloration on right lower extremity consistent with dermal venous stasis. No significant erythema or calf tenderness. )
Skin: Warm and Dry
Neuro: AO x 3
Psych: Agitated and Other (Does endorse thoughts of harming himself, but he states this has been ongoing for years with no change and he doesn't want to talk about it. Uncooperative at times. )
Laboratory Results
-
01/28/25 06:09
01/28/25 06:09
Laboratory Results
Total Bilirubin 0.4 mg/dl (0.2-1.3) 01/28/25 06:09
AST 17 U/L (17-59) 01/28/25 06:09
ALT 12 U/L (0-50) 01/28/25 06:09
Alkaline Phosphatase 56 U/L (38-126) 01/28/25 06:09
Impression/Plan
-
Impression:
71-year-old male with recent admission for acute on chronic blood loss anemia secondary to GI bleed, permanent A-fib on Xarelto presents for epistaxis and incidentally found pneumonia.
Imaging:
1. Left lower lobe airspace consolidation, which may represent pneumonia or subsegmental atelectasis.
2. Small left pleural effusion may also be present.
Plan:
Acute epistaxis
--exacerbated by xarelto - hold
--Hg stable. Repeat H&H in pm. Blood consent in the chart.
--Transfuse for hg <7
--topical TXA, epistaxis balloon catheter, topical thrombin and silver nitrate in ED - appears stable
--ENT consulted
Acute hypoxemic respiratory failure
Pneumonia?
--LLL consolidation on chest x-ray
--Pro-evonne pending, check covid, flu
--Cefepime, d/c vanco as MRSA swab (-) on 01/22/25
--Patient refusing to wear nasal cannula despite strong recommendations
--last echo 11/2021 - repeat to see if any cardiac component contributing
Hypotension
--s/p500 cc in ED. 1 more 500cc bolus and NSS 80mls/hr with hx HFrEF
--Admit to IMU for possible pressor support
--Hold home lasix, BB and lisinopril
--Hold K supplement while not on lasix
Suicidal ideation
--States he does not want to talk about it
--Continue home mirtazapine, escitalopram, aripiprazole, lorazepam, hydroxazine
--Appreciate psych
Anemia multifactorial in setting of chemotherapy, recent acute blood loss secondary to GI bleed, current epistaxis, known LIVAN
--Transfuse for Hg <7
#HFrEF (last echo 11/2021 EF 45%)
--Not in exacerbation
--BNP 1859
--home lasix, lisinopril and BB on hold in setting of hypotension
#Permanent a.fib s/p AV node ablation and Mirca leadless pacemaker implant 2020
--Xaralto and metoprolol on hold - restart when able
#Non-hodkins lymphoma s/p R-CHOP
--Follow with Dr. Tyler at [place]
--continue home lenalidomide
--Patient is not sure why he is on allopurinol - could be for tumor lysis syndrome vs gout - continue
#Hx GI bleed - denies hematochezia or melena - monitor bowel movements
#Insomnia - tramadol
#GERD - pantoprazole
#LIVAN - receives IV iron with Dr. Tyler at [facility]
#Vit D deficiency - cont. vit D
#Chronic back pain - Cont home oxycodone PRN - bowel regimen
#Vertigo - meclizine prn
#Osteoarthrits
#HTN - now hypotensive - hold BP meds
#HLD - had history but not on any meds for it anymore
#Glaucoma - continue home eye drops
#Urinary issue - states not BPH but can't recal what. Continue tamsulosin and mirabegron
#History of fungal rash - nystatin
#Gout - allopurinol
#Hx Kidney stones
DNR
DVT - SCD in setting of acute bleed
Low sodium fluid restricted diet with HFrEF
[2025-01-28] MEDS: MAXIPIME 1000 MG IV (08:14)
[2025-01-28] MEDS: VANCOCIN 530 MG IV (09:09)
--- NOTE | 2025-01-28 09:26 | CM ---
CM received consult and discussed with his RN Tayler. I met with pt bedside in ED.
Pt resides at [facility] in LTC, has been there over a year. Ambulates with RW. Needs assistance with ADLs and personal care.
Pt states he does not like [facility], he is not happy with the staff and the food there.
He would like to move to a different facility, he told me he is not familiar with other facilities but does not want to go to a [facility] based facility, sounds like he was at [facility] in the past and did not care for it.
Pt gave me permission to call his son/POA Raj to discuss.
I spoke to pt's son Raj, he was not aware his father was sent to ED, he will call [facility] to discuss.
Raj private pays for his father to be at [facility], states his takes care of that.
Per [place] his father 'has been blacklisted from several other facilities because of his attitude'. He does not want to start the process of looking for a different facility. He was heading to [facility] to see his father, will come to instead.
I updated Tayler and will be available if Raj needs to speak with me.
PCP: Javan Del Castillo
Pharmacy: Meds supplied by [facility]
Discharge plan: Return to [facility] when medically stable, CM will continue to follow.
--- NOTE | 2025-01-28 09:32 | W.PN.UPDATE ---
Update Note
Progress Note Update
I personally performed a history and physical exam of the patient and discussed management with the resident. I reviewed the resident's note and agree with the documented findings and plan of care HPI/CC.
79-year-old male presents with epistaxis.
/, 78, 29, 97.6 �F, 85% blow by (was refusing NC O2)
Gen: NAD, AAOx3, appears chronically ill malnourished.
Eyes: EOMI, PERRLA, no scleral icterus.
Neck: supple.
CV: RRR, +S1/S2, no m/r/g.
Resp: Coarse breath sounds bilaterally
Abd: +BS, soft, NT, ND
Skin: No rashes.
Neuro: CN 2-12 intact, non-focal.
Psych: Normal mood and affect.
Lab Results
01/28/25 01/28/25
06:09 06:10
WBC 7.8
RBC 2.98 L
Hgb 8.0 L
Hct 27.0 L
MCV 90.6
MCH 26.8 L
MCHC 29.6 L
RDW 19.4 H
Plt Count 183
MPV 10.2
Abs Immat Gran (auto) 0.1 H
Absolute Neuts (auto) 5.8
Absolute Lymphs (auto) 0.5 L
Absolute Monos (auto) 1.2 H
Absolute Eos (auto) 0.2
Absolute Basos (auto) 0.1
Immature Gran % 0.6 H
Neutrophils % 74.2
Lymphocytes % 6.5 L
Monocytes % 14.8 H
Eosinophils % 3.0
Basophils % 0.9
Nucleated RBC % 0
Sodium 138
Potassium 4.0
Chloride 105
Carbon Dioxide 30
BUN 12
Creatinine 0.7
eGFR > 60.00
Glucose 118 H
Lactic Acid 0.8
Calcium 8.4
Total Bilirubin 0.4
AST 17
ALT 12
Alkaline Phosphatase 56
Hcf-L-Vevsmqpvxpv Pept 1860
Total Protein 5.2 L
Albumin 3.1 L
Blood Type O POS
Antibody Screen Negative
CXR:
1. Left lower lobe airspace consolidation, which may represent pneumonia or subsegmental atelectasis.
2. Small left pleural effusion may also be present.
Acute epistaxis:
-exacerbated by Xarelto, hold Xarelto
-Hb stable from prior, trend
-topical TXA, rapid rhinorocket, surgicel in ER, ENT c/s placed, currently epistaxis under control
Hypotension:
-s/p 500cc NS in ER, now SBP 80s, will give another 500cc NS and then NS @ 80cc/hr
-check echo with h/o HFrEF
-hold home Lasix
Acute hypoxemic respiratory failure:
- Patient refusing to wear nasal cannula oxygen
- Check echocardiogram
- Pneumonia on chest x-ray but afebrile no leukocytosis, check procalcitonin
- cont Cefepime for now, stop Vanco as MRSA screen NEG 01/22/25
Other problems:
h/o NHL
--- NOTE | 2025-01-28 10:26 | W.PN.ENT ---
Today's Communication
-
Packed right side, needed for 2-3 days, abx ppx
Impression / Plan
-
The patient is a 79yoM on anticoagulation now packed by the ER for right sided epistaxis. He will need the packing for 2-3 days due to use of anticoagulant. ENT to remove if the patient is still an inpatient, otherwise he can be seen in the office
for packing removal. Please cover for staph while packed.
Subjective Data
-
The patient is a 79-year old man with afib on anticoagulation who was started on NC oxygen two days ago. He developed bleeding at home which was spontaneous and right-sided. He was packed in the ER with a rapid rhino by the ER and he is currently
doing well. He denies any problems with recurrent epistaxis.
Objective Data
-
Vital Signs
Temp Pulse Resp BP Pulse Ox
97.6 F 75 23 104/69 93
01/28/25 05:54 01/28/25 10:15 01/28/25 10:15 01/28/25 10:15 01/28/25 10:15
Lab Results
01/28/25 06:09
01/28/25 06:09
Calcium 8.4 mg/dl (8.4-10.2) 01/28/25 06:09
Total Bilirubin 0.4 mg/dl (0.2-1.3) 01/28/25 06:09
AST 17 U/L (17-59) 01/28/25 06:09
ALT 12 U/L (0-50) 01/28/25 06:09
Alkaline Phosphatase 56 U/L (38-126) 01/28/25 06:09
Physical Exam
-
GEN: NAD, Alert
HEENT: Rapid rhino in the right naris, no anterior bleeding. 0.5ml of saline added to balloon
OC/OP: Clear, no bleeding or clots
[2025-01-28 10:28] LABS: Procalcitonin < 0.05 ng/ml (0.0-0.25)
--- NOTE | 2025-01-28 11:20 | W.PN.UPDATE ---
Addendum entered and electronically signed by Radha Ryder MD, Resident 01/28/25 13:08:
Will add cephalexin 500 TID per ENT to prophylactically cover for staph while the wound is packed.
Original Note:
Update Note
Progress Note Update
Pro-evonne is <0.05 and LA 0.8. Stop IV antibiotics. Covid and flu swab pending.
--- NOTE | 2025-01-28 11:45 | CS.PSYCHR ---
Consult Summary - Psychiatry
-
pt seen for consultation due to positive screen on [place] Suicide Severity Rating Scale
79 yo man brought to ED from [facility] due to epistaxis. Had been here two weeks ago for GI bleed (hgb down to 5). Is on Xarelto due to a fib; had been recently placed on O2, may have dried out nasal mucosa. Nose now packed.
Has non-hodgkins lymphoma, unable to ambulate well so living in SNF. Does not like it there, 'the food is terrible and no one cares.' Hopes to be able to move to a different facility. Per case mgmt notes, son does not think this will be possible
since pt has been 'blacklisted' from other facilities due to his 'attitude.'
Pt acknowedges responding yes to screeing test, thinks it's a stupid test. Willing to speak with me about himself.
Not happy with current situation but not inclined to act on suicide at this point. We discussed the problem of attempting to move somewhere if he is being difficult, including talking about suicide.
born and raised in [facility] [place], only child, did poorly in high school ('I was not mature enough, should have been held back a year--birthday is [birth year].) Able to get technical certificate from [employer], then bachelor's in [employer] from [place]. Returned to [place] to work for [employer], where father worked. , one child. approx 5 years ago.Likes to watch TV. Had been living in [facility] until unable to walk/care for ADLs.
Allergic to sulfa and tetracyline
on allopurinol, abilify 2 mg, lexapro 5 mg, lasix 40, gabapentin 100 hs, guaifenisen hydroxyzine prn, meclizine, protonix, compazine prn, trazodone 50 hs, tramadol 50 prn, xarelto 40 mg
on exam pt lying in bed with nasal packing. willing to talk, conversant about his life and times. Denies current suicidal ideaation, will not try to hurt himself here. Acknowledges 'I'm like a big kid' when discussing difficulty in living
arrangements. speaks lovingly of son. no signs o fcognitive impairment, no signs of psychosis. Fair insight, +/- judgement
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
Pt on abilfy and lexapro at low dose; like all SSRIs may contribute to bleeding (though nothing compared to Xarelto) Can continue. Not interested in psychiatric care at this time but grateful for conversation
No need for 1:1
--- NOTE | 2025-01-28 12:00 | PTCARENOTE ---
Pt from ER AAOx3 states he is tired of answering questions. Pt has packing in R narte to be removed by ENT . Pt refusing O2 . Pt is Vpaced with hx AFIB. Skin intact
[2025-01-28] MEDS: NEURONTIN 100 MG PO ×2 (12:48→21:04)
[2025-01-28] MEDS: ATARAX 25 MG PO ×2 (12:48→21:04)
[2025-01-28] MEDS: PROTONIX 40 MG PO (12:48)
[2025-01-28] MEDS: LEXAPRO 5 MG PO (12:49)
[2025-01-28] MEDS: NSS 1000 IV (13:01)
[2025-01-28 13:07] LABS: COVID-19 Antigen Negative (Negative)
--- NOTE | 2025-01-28 16:26 | PTCARENOTE ---
son called for update , levi states pt is to go back to [facility] as he is blacklisted from [facility] due to his bad attitude
[2025-01-28] MEDS: KEFLEX 500 MG PO ×2 (16:58→21:04)
[2025-01-28] MEDS: ZYLOPRIM 100 MG PO ×2 (16:58→21:04)
[2025-01-28 17:42] LABS: Hematocrit 21.1 % (39.0-52.0); Hemoglobin 6.2 g/dL (13.0-18.0)
[2025-01-28] MEDS: DESENEX/MITRAZOL/ZEASORB 1 APPLIC TOPICAL (21:04)
[2025-01-28] MEDS: REMERON 15 MG PO (21:04)
[2025-01-28] MEDS: MYRBETRIQ EXTENDED RELEASE 50 MG PO (21:04)
[2025-01-28] MEDS: MUCINEX 600 MG PO (21:04)
[2025-01-28] MEDS: ABILIFY 2 MG PO (21:05)
[2025-01-28] MEDS: DESYREL 50 MG PO (21:05)
[2025-01-28] MEDS: COLACE PO (21:08)
[2025-01-29] VITALS (10 sets, daily range): BP systolic 106–132; BP diastolic 75–85; BMI 22.5
[2025-01-29] MEDS: NSS 1000 IV (00:42)
[2025-01-29 03:49] LABS: Hematocrit 29.8 % (39.0-52.0); Hemoglobin 9.3 g/dL (13.0-18.0); Mean Corp Hgb Conc. 31.2 g/dL (33.0-37.0); Mean Corpuscular Volume 90.0 fL (80.0-94.0); Platelet Count 180 10^3/uL (130-400); Red Cell Dist. Width 18.2 % (11.5-14.5)
[2025-01-29 04:13] LABS: ALT (SGPT) 12 U/L (0-50); AST (SGOT) 18 U/L (17-59); Albumin 2.9 g/dl (3.5-5.0); Alkaline Phosphatase 52 U/L (38-126); Blood Urea Nitrogen 9 mg/dl (9-20); Calcium 8.0 mg/dl (8.4-10.2); Carbon Dioxide 27 mmol/L (22-30); Chloride 108 mmol/L (98-107); Estimated Creatinine Clearance 89 ml/min; Glucose 133 mg/dl (70-99); Potassium 4.2 mmol/L (3.5-5.1); Sodium 136 mmol/L (135-145); Total Protein 4.9 g/dl (6.3-8.2); eGFR > 60.00
--- NOTE | 2025-01-29 05:50 | PTCARENOTE ---
No acute events overnight. 2 units PRBCs infused without s/s adverse reaction. Lung sounds diminished after administration. Patient placed on 2 liters overnight with hesitance. No episodes of hypotension/bleeding. R nare with packing intact. am hgb
9.3. Will continue to monitor.
--- NOTE | 2025-01-29 06:41 | PTCARENOTE ---
Patient requiring 4 liters 02 but continues to take it off and refusing to put it back on. Sp02 83 percent on room air. Education provided about importance of leaving on 02 and keeping sp02 above 91 percent but patient continues to remove 02. Will
continue to monitor.
[2025-01-29] MEDS: PROTONIX 40 MG PO (08:08)
[2025-01-29] MEDS: VITAMIN D3 (cholecalciferol) 25 MCG PO (08:09)
[2025-01-29] MEDS: ZYLOPRIM 300 MG PO (08:09)
[2025-01-29] MEDS: KEFLEX 500 MG PO ×3 (08:09→19:48)
[2025-01-29] MEDS: ATARAX 25 MG PO ×2 (08:09→19:48)
[2025-01-29] MEDS: LEXAPRO 5 MG PO (08:09)
[2025-01-29] MEDS: NEURONTIN 100 MG PO ×2 (08:09→19:48)
[2025-01-29] MEDS: COLACE 200 MG PO (08:10)
[2025-01-29] MEDS: MUCINEX 600 MG PO ×2 (08:10→19:48)
[2025-01-29] MEDS: DESENEX/MITRAZOL/ZEASORB 1 APPLIC TOPICAL ×2 (08:10→19:48)
[2025-01-29] MEDS: ZYLOPRIM 100 MG PO ×3 (08:10→19:47)
[2025-01-29] MEDS: LASIX 40 MG PO (12:52)
[2025-01-29] MEDS: TOPROL XL 25 MG PO (12:54)
[2025-01-29] MEDS: ZESTRIL 2.5 MG PO (12:54)
--- NOTE | 2025-01-29 14:26 | W.PN.HOSP.TC ---
Addendum entered and electronically signed by Joya Yanez MD 01/29/25 16:08:
I saw and evaluated the patient independently. I reviewed the resident�s note and agree with findings and plan as documented by Dr. Delgadillo.
GENERAL: well developed, well nourished, male in no apparent distress
HEENT: NC/AT--nasal packing in right nare --O2 NC in left nare
HEART: irreg irreg--crackles bilaterally
LUNGS : crackles bilaterally
ABDOM: soft, nontender, nondistended, + bowel sounds
EXT: no cyanosis, clubbing, or edema
NEUROLOGIC: grossly intact
Acute epistaxis with acute blood loss anemia---exacerbated by Xarelto, holding Xarelto--received 2 units pRBC for HGB 6.2 on 01/28/25--topical TXA, rapid rhinorocket, surgicel in ER, ENT c/s placed, currently epistaxis under control
Hypotension--from acute blood loss--resolved--s/p 500cc NS in ER, now SBP 80s, will give another 500cc NS and then NS @ 80cc/hr--stop IVF as pt tachypneic with crackles--ECHO with HFpEF, dilated chambers, valvular issues--restart lasix
Acute hypoxemic respiratory failure--- Patient was refusing to wear nasal cannula oxygen--procalcitonin neg--abx are for nasal packing
depression--apprec psych--NOT suicidal
h/o NHL
DVT proph
code status--DNR
Original Note:
Today's Communication/Plan
-
Continue abx for nasal packing indication. Removal per ENT
Restart antihypertenisves with holding parameters.
Restart oral lasix
Wean off O2 as able
Assessment / Plan
Assessment / Plan
IMPRESSION:
79-year-old male with past medical history of non-Hodgkin's lymphoma s/p R-CHOP, paroxysmal atrial fibrillation on Xarelto, history of GI bleed, HFrEF (echo 11/30 EF 45%), hyperlipidemia, depression, back pain, osteoarthritis, iron deficiency
anemia, glaucoma, GERD, who presents with acute blood loss anemia
Acute epistaxis:
Acute blood loss anemia, from epistaxis, associated with Xarelto
--Hold Xarelto
--Repeat hemoglobin 6.2. status post 2 units PRBCs, hemoglobin this morning 9.3.
--Received topical TXA, epistaxis balloon catheter, topical thrombin and silver nitrate in ED. Bleeding appears to be well-controlled with wound packing
- Downgrade to telemetry
- Appreciate ENT
Acute hypoxemic respiratory failure
Recently treated with antibiotics for pneumonia
LLL consolidation on chest x-ray, however Pro-Calc negative. X-ray findings likely residual from pneumonia which was treated
-Keflex discontinued. Will observe off antibiotics
-Currently on 4 L nasal cannula, likely secondary to epistaxis versus ongoing pneumonia. Wean off O2 as able
Hypotension
-- Resolved status post IV fluids.
-- Discontinued IV fluids. Known history of CHF
-- Resume PO lasix. Pt is on 40/20 mg PO alternating daily, will start 40mg daily and reassess tomorrow.
-- Resume K+ supplement
Suicidal ideation
--States he does not want to talk about it
--Continue home mirtazapine, escitalopram, aripiprazole, lorazepam, hydroxyzine
--Appreciate psych - not depressed or suicidal
Chronic anemia:
2/2 chemotherapy, recent acute blood loss secondary to GI bleed, known LIVAN
--Transfuse for Hg <7
#HFrEF (last echo 11/2021 EF 45%)
--Not in exacerbation
--BNP 1859
-- Resume oral Lasix, lisinopril and metoprolol given normotension (holding parameters)
#Permanent a.fib s/p AV node ablation and Mirca leadless pacemaker implant 2020
-- Resume metoprolol not a blood pressure is normal. Xarelto held for acute epistaxis
#Non-hodkins lymphoma s/p R-CHOP
--Follows with Dr. Tyler at [place]
--continue home lenalidomide
--Patient is not sure why he is on allopurinol - could be for tumor lysis syndrome vs gout - continue
#Hx GI bleed - denies hematochezia or melena - monitor bowel movements
#Insomnia - tramadol
#GERD - pantoprazole
#LIVAN - receives IV iron with Dr. Tyler at [place]
#Vit D deficiency - cont. vit D
#Chronic back pain - Cont home oxycodone PRN - bowel regimen
#Vertigo - meclizine prn
#Osteoarthrits
#HTN - now hypotensive - hold BP meds
#HLD - had history but not on any meds for it anymore
#Glaucoma - continue home eye drops
#Urinary issue - states not BPH but can't recall what. Continue tamsulosin and mirabegron
#History of fungal rash - nystatin
#Gout - allopurinol
#Hx Kidney stones
DNR
DVT - SCD in setting of acute bleed
Low sodium fluid restricted diet with HFrEF
Anticipated Discharge: 24 - 48 hours
Subjective/Interval History
-
Date of Service: January 29, 2025
Objective Data
-
Labs:
Laboratory Results
01/29/25
03:21
WBC 7.3
Hgb 9.3 L D
Hct 29.8 L
Plt Count 180
Sodium 136
Potassium 4.2
Chloride 108 H
Carbon Dioxide 27
BUN 9
Creatinine 0.5 L
Glucose 133 H
Calcium 8.0 L
Total Bilirubin 0.7
AST 18
ALT 12
Alkaline Phosphatase 52
Vital Signs:
Vital Signs
Temp Pulse Resp BP Pulse Ox
98.2 F 74 30 120/78 93
01/29/25 11:01 01/29/25 12:53 01/29/25 12:53 01/29/25 12:54 01/29/25 12:53
I&O
01/28/25 01/29/25 01/30/25
06:59 06:59 06:59
Intake Total 2099 / 2099 240 / 240
Output Total 200 / 200
Balance 1900 / 1900 240 / 240
Review of Systems
-
History Source: Patient
Constitutional: Denies Fever
EENT: Denies Bloody Nose or Other
Respiratory: Denies Trouble Breathing
Hematologic / Lymphatic: Denies Bleeding
Physical Exam
-
General: Well Developed, Well Nourished and No Apparent Distress
HEENT: Other (right nasal packing in place, leaking aroundpacking)
Respiratory: Crackles (mild crackles on left lower lobe), Decreased Breath Sounds (Right middle and lower lobes) and Other (4L O2 NC )
Cardiac: Regular Rhythm and Murmur (systolic); Negative S1/S2 or Calf Tenderness
GI: Soft, Nontender, Nondistended and Normal Bowel Sounds
Musculoskeletal: No Clubbing, No Cyanosis and No Edema
Skin: Warm and Dry
Neuro: Awake, Alert and Oriented
Psych: Calm
--- NOTE | 2025-01-29 14:31 | W.PN.UPDATE ---
Update Note
Progress Note Update
pt seen for followup. sitting up in bed watching football on TV. No complaints, daughter in law in to visit, son on business trip. States nose feels better, waiting to see how it will be once packing removed. not depressed or suicidal.
[2025-01-29] MEDS: ATIVAN 0.5 MG PO (15:03)
--- NOTE | 2025-01-29 15:05 | PTCARENOTE ---
Pt became agitated when changing him. Ativan given as ordered
[2025-01-29] MEDS: KCL 10 MEQ PO (15:54)
--- NOTE | 2025-01-29 16:22 | PTCARENOTE ---
# 30 cc applied at pt request
[2025-01-29] MEDS: REMERON 15 MG PO (19:48)
[2025-01-29] MEDS: ABILIFY 2 MG PO (19:48)
[2025-01-29] MEDS: DESYREL 50 MG PO (19:48)
[2025-01-29] MEDS: MYRBETRIQ EXTENDED RELEASE 50 MG PO (19:48)
[2025-01-29] MEDS: COLACE PO (19:49)
[2025-01-30] VITALS (11 sets, daily range): BP systolic 91–116; BP diastolic 49–82; BMI 21.1
[2025-01-30 04:29] LABS: Hematocrit 31.0 % (39.0-52.0); Hemoglobin 9.7 g/dL (13.0-18.0); Mean Corp Hgb Conc. 31.3 g/dL (33.0-37.0); Mean Corpuscular Volume 87.8 fL (80.0-94.0); Platelet Count 221 10^3/uL (130-400); Red Cell Dist. Width 18.4 % (11.5-14.5)
[2025-01-30 04:36] LABS: Blood Urea Nitrogen 9 mg/dl (9-20); Calcium 8.5 mg/dl (8.4-10.2); Carbon Dioxide 33 mmol/L (22-30); Chloride 101 mmol/L (98-107); Estimated Creatinine Clearance 90 ml/min; Glucose 108 mg/dl (70-99); Magnesium 1.6 mg/dl (1.6-2.3); Potassium 3.6 mmol/L (3.5-5.1); Sodium 136 mmol/L (135-145); eGFR > 60.00
--- NOTE | 2025-01-30 04:43 | PTCARENOTE ---
No acute events overnight. Patient cooperative with care and minimally agitated. Right nare packing intact. No episodes of bleeding. Am hgb 9.7. Weaned to room air and satting 93 percent. Will continue to monitor.
[2025-01-30] MEDS: ZESTRIL 2.5 MG PO (08:40)
[2025-01-30] MEDS: NEURONTIN 100 MG PO ×2 (08:40→20:09)
[2025-01-30] MEDS: ZYLOPRIM 300 MG PO (08:41)
[2025-01-30] MEDS: KEFLEX 500 MG PO ×3 (08:41→20:09)
[2025-01-30] MEDS: PROTONIX 40 MG PO (08:41)
[2025-01-30] MEDS: MUCINEX 600 MG PO ×2 (08:41→20:09)
[2025-01-30] MEDS: KCL 10 MEQ PO (08:42)
[2025-01-30] MEDS: ZYLOPRIM 100 MG PO ×3 (08:42→20:10)
[2025-01-30] MEDS: VITAMIN D3 (cholecalciferol) 25 MCG PO (08:42)
[2025-01-30] MEDS: TOPROL XL 25 MG PO (08:42)
[2025-01-30] MEDS: LEXAPRO 5 MG PO (08:42)
[2025-01-30] MEDS: ATARAX 25 MG PO ×2 (08:42→20:08)
[2025-01-30] MEDS: DESENEX/MITRAZOL/ZEASORB 1 APPLIC TOPICAL ×2 (08:43→20:08)
[2025-01-30] MEDS: COLACE 200 MG PO ×2 (08:43→20:08)
--- NOTE | 2025-01-30 09:45 | PTCARENOTE ---
Received report from night RN. No events reported overnight. Patient pulse ox on room air 91%-92%. Placed patient on 2L O2 pulse ox now 95%. Packing in place via right nare. ENT to remove packing. Patient AA0 X3 forgetful. He can make his
needs known.
[2025-01-30] MEDS: MAGNESIUM SULFATE 100 IV (10:28)
[2025-01-30] MEDS: TESSALON PERLES 100 MG PO ×3 (10:32→20:10)
[2025-01-30] MEDS: FLUSH (NSS) 1 FLUSH IV (10:34)
--- NOTE | 2025-01-30 11:57 | W.PN.HOSP.TC ---
Addendum entered and electronically signed by Janice Delgadillo MD, Resident 01/30/25 16:45:
Pt is currently on Keflex for nasal packing. Keflex not discontinued.
Addendum entered and electronically signed by Joya Yanez MD 01/30/25 12:32:
I saw and evaluated the patient independently. I reviewed the resident�s note and agree with findings and plan as documented by Dr. Delgadillo.
GENERAL: well developed, well nourished, male in no apparent distress
HEENT: NC/AT--nasal packing in right nare --O2 NC in left nare
HEART: irreg irreg
LUNGS : crackles bilaterally
ABDOM: soft, nontender, nondistended, + bowel sounds
EXT: no cyanosis, clubbing, or edema
NEUROLOGIC: grossly intact
Acute epistaxis with acute blood loss anemia---exacerbated by Xarelto, holding Xarelto--received 2 units pRBC for HGB 6.2 on 01/28/25 with improvement of HGB to 9.7--topical TXA, rapid rhinorocket, Surgicel in ER, ENT to remove packing-- currently
epistaxis under control
Hypotension--from acute blood loss--resolved--s/p 500cc NS in ER, now SBP 80s, will give another 500cc NS and then NS @ 80cc/hr--stop IVF as pt tachypneic with crackles--ECHO with HFpEF, dilated chambers, valvular issues--restart lasix
Acute hypoxemic respiratory failure--- Patient was refusing to wear nasal cannula oxygen--procalcitonin neg--abx are for nasal packing
HFrEF (last echo 11/2021 EF 45%)--now with exacerbation after IVF for hypotension--lasix restarted
depression--apprec psych--NOT suicidal
h/o NHL
DVT proph
code status--DNR
Original Note:
Today's Communication/Plan
-
Check CXR
Continue home oral lasix
Assessment / Plan
Assessment / Plan
IMPRESSION:
79-year-old male with past medical history of non-Hodgkin's lymphoma s/p R-CHOP, paroxysmal atrial fibrillation on Xarelto, history of GI bleed, HFrEF (echo 11/30 EF 45%), hyperlipidemia, depression, back pain, osteoarthritis, iron deficiency
anemia, glaucoma, GERD, who presents with acute blood loss anemia
Acute epistaxis:
Acute blood loss anemia, from epistaxis, associated with Xarelto
-- Xarelto held
--hgb stable at 9.7 s/p 2units PRBC 01/28
--Received topical TXA, epistaxis balloon catheter, topical thrombin and silver nitrate in ED. Bleeding appears to be well-controlled.
- Appreciate ENT. Hopefully packing can be removed on Friday. Otherwise look forward to their recs/outpatient care
Acute hypoxemic respiratory failure
Recently treated with antibiotics for pneumonia
LLL consolidation on chest x-ray, however Pro-Calc negative. X-ray findings likely residual from pneumonia which was treated.
-Keflex discontinued. Afebrile off antibiotics. Complained of nonproductive cough today. Gave Tessalon Perles. Likely from HF (lasix was held previously), but will repeat CXR today.
-Currently on 4 L nasal cannula, likely secondary to epistaxis/one patent nare versus ongoing pneumonia. Wean off O2 as able
Hypotension
-- Resolved status post IV fluids.
-- Discontinued IV fluids. Known history of CHF
-- Resumed pt home lasix 40/20 mg PO alternating daily (for 6 days out of the week), appropriately diuresing
-- Resumed K+ supplement
Mental health disorder:
--Continue home mirtazapine, escitalopram, aripiprazole, lorazepam, hydroxyzine
--Appreciate psych - not depressed or suicidal
Chronic anemia:
2/2 chemotherapy, recent acute blood loss secondary to GI bleed, known LIVAN
--Transfuse for Hg <7
#HFrEF (last echo 11/2021 EF 45%)
--Not in exacerbation
--BNP 1859
--Continue home lasix, lisinopril and metoprolol given normotension (holding parameters)
#Permanent a.fib s/p AV node ablation and Mirca leadless pacemaker implant 2020
-- Resume metoprolol not a blood pressure is normal. Xarelto held for acute epistaxis
#Non-hodkins lymphoma s/p R-CHOP
--Follows with Dr. Tyler at [place]
--continue home lenalidomide
--Patient is not sure why he is on allopurinol - could be for tumor lysis syndrome vs gout - continue
Hypomagnesemia:
- Replete
#Hx GI bleed - denies hematochezia or melena - monitor bowel movements
#Insomnia - tramadol
#GERD - pantoprazole
#LIVAN - receives IV iron with Dr. Tyler at [place]
#Vit D deficiency - cont. vit D
#Chronic back pain - Cont home oxycodone PRN - bowel regimen
#Vertigo - meclizine prn
#Osteoarthrits
#HTN - now hypotensive - hold BP meds
#HLD - had history but not on any meds for it anymore
#Glaucoma - continue home eye drops
#Urinary issue - states not BPH but can't recall what. Continue tamsulosin and mirabegron
#History of fungal rash - nystatin
#Gout - allopurinol
#Hx Kidney stones
DNR
DVT - SCD in setting of acute bleed
Low sodium fluid restricted diet with HFrEF
Anticipated Discharge: Within 24 hours
Subjective/Interval History
-
Date of Service: January 30, 2025
Objective Data
-
Labs:
Laboratory Results
01/30/25
04:07
WBC 6.1
Hgb 9.7 L
Hct 31.0 L
Plt Count 221 D
Sodium 136
Potassium 3.6
Chloride 101
Carbon Dioxide 33 H
BUN 9
Creatinine 0.6 L
Glucose 108 H
Calcium 8.5
Vital Signs:
Vital Signs
Temp Pulse Resp BP Pulse Ox
98.7 F 71 33 104/79 95
01/30/25 07:00 01/30/25 08:00 01/30/25 08:00 01/30/25 08:00 01/30/25 09:25
I&O
01/29/25 01/30/25 01/31/25
06:59 06:59 06:59
Intake Total 2100 / 2100 360 / 360 240 / 240
Output Total 200 / 200 2600 / 2600
Balance 1900 / 1900 -2240 / -2240 240 / 240
Review of Systems
-
History Source: Patient
Respiratory: Reports Cough; Denies Trouble Breathing
Cardiac: Denies Chest Pain
Abdomen/GI: Denies Abdominal Pain, Nausea or Vomiting
Physical Exam
-
General: Well Developed and Well Nourished
HEENT: Other (right nares with packing, no active bleeding, O2 NC in left nares)
Respiratory: Crackles (bilateral lower lung cheung) and Decreased Breath Sounds (on left lung base)
Cardiac: S1/S2 and Irregular Rhythm; Negative Murmur, Rub or Calf Tenderness
GI: Soft, Nontender, Nondistended and Normal Bowel Sounds
Musculoskeletal: No Clubbing, No Cyanosis and No Edema
Skin: Warm and Dry
Neuro: Awake, Alert and Oriented
Psych: Calm
--- NOTE | 2025-01-30 13:07 | W.PN.UPDATE ---
Update Note
Progress Note Update
pt seen for followup, remains in fair spirits, denies suicidal thoughts. Not thinking about suicide, 'that's nothing.' No psychiatric barriers to usual care.
[2025-01-30] MEDS: LASIX 20 MG PO (13:17)
[2025-01-30] MEDS: ABILIFY 2 MG PO (20:09)
[2025-01-30] MEDS: DESYREL 50 MG PO (20:09)
[2025-01-30] MEDS: REMERON 15 MG PO (20:10)
[2025-01-30] MEDS: MYRBETRIQ EXTENDED RELEASE 50 MG PO (20:10)
[2025-01-31] VITALS (9 sets, daily range): BP systolic 82–122; BP diastolic 58–82; BMI 20.8
--- NOTE | 2025-01-31 03:14 | PTCARENOTE ---
Patient AAOx3, forgetful at times, can be agitated during care. Packing intact in the R nare, appears to be some dried blood in the nare. No bleeding noted. PRN Jose Francisco hartman for cough administered see JUL. Hygiene and oral care done. CC #[address] Able to make needs known. Call yuen within reach.
--- NOTE | 2025-01-31 04:00 | PTCARENOTE ---
Patient on 1L NC. Pt pulled off NC and when attempting to place it back on pt pulled it off and states 'I don't need that damn thing.' SpO2 91% on room air. Pt denies any SOB.
[2025-01-31 04:21] LABS: Hematocrit 31.5 % (39.0-52.0); Hemoglobin 10.0 g/dL (13.0-18.0); Mean Corp Hgb Conc. 31.7 g/dL (33.0-37.0); Mean Corpuscular Volume 87.5 fL (80.0-94.0); Platelet Count 253 10^3/uL (130-400); Red Cell Dist. Width 18.7 % (11.5-14.5)
[2025-01-31 04:51] LABS: Blood Urea Nitrogen 15 mg/dl (9-20); Calcium 8.4 mg/dl (8.4-10.2); Carbon Dioxide 33 mmol/L (22-30); Chloride 101 mmol/L (98-107); Estimated Creatinine Clearance 90 ml/min; Glucose 118 mg/dl (70-99); Potassium 4.2 mmol/L (3.5-5.1); Sodium 136 mmol/L (135-145); eGFR > 60.00
--- NOTE | 2025-01-31 05:49 | PTCARENOTE ---
Patient transported to via stretcher. Report called. All belonging collected and sent with the patient.
[2025-01-31] MEDS: TYLENOL 650 MG PO ×2 (05:53→19:33)
--- NOTE | 2025-01-31 05:59 | PTCARENOTE ---
Patient was transferred from IMU, head-to-toe assessment completed, tele placed. Oriented to unit, and call yuen is within reach. Complained of a 3/10 headache, given PRN Tylenol, now resting comfortably.
[2025-01-31] MEDS: PROTONIX 40 MG PO (09:39)
[2025-01-31] MEDS: LEXAPRO 5 MG PO (09:40)
[2025-01-31] MEDS: KCL 10 MEQ PO (09:40)
[2025-01-31] MEDS: TOPROL XL 25 MG PO (09:40)
[2025-01-31] MEDS: ZESTRIL 2.5 MG PO (09:40)
[2025-01-31] MEDS: MUCINEX 600 MG PO ×2 (09:40→14:54)
[2025-01-31] MEDS: LASIX 40 MG PO (09:41)
[2025-01-31] MEDS: COLACE 200 MG PO (09:41)
[2025-01-31] MEDS: ZYLOPRIM 100 MG PO ×2 (09:41→14:54)
[2025-01-31] MEDS: VITAMIN D3 (cholecalciferol) 25 MCG PO (09:42)
[2025-01-31] MEDS: KEFLEX 500 MG PO ×2 (09:42→14:54)
[2025-01-31] MEDS: ZYLOPRIM 300 MG PO (09:42)
[2025-01-31] MEDS: NEURONTIN 100 MG PO (09:42)
[2025-01-31] MEDS: ATARAX 25 MG PO (09:42)
[2025-01-31] MEDS: DESENEX/MITRAZOL/ZEASORB 1 APPLIC TOPICAL (09:43)
[2025-01-31] MEDS: TESSALON PERLES 100 MG PO ×2 (10:42→14:54)
--- NOTE | 2025-01-31 12:13 | W.PN.ENT ---
Today's Communication
-
patient seen at bedside
Impression / Plan
-
79 year old man with epistaxis Xarelto. Packing removed today because no bleeding for 3 days
no bleeding after packin removal
please hold xarelto for at least 3 more days
Subjective Data
-
The patient is a 79-year old man with afib on anticoagulation who was started on NC oxygen two days ago. He developed bleeding at home which was spontaneous and right-sided. He was packed in the ER with a rapid rhino by the ER and he is currently
doing well. He denies any problems with recurrent epistaxis.
01/31/25 addendum Off Xarelto for 3 days, no active bleeding
Objective Data
-
Vital Signs
Temp Pulse Resp BP Pulse Ox
97.6 F 71 16 99/62 96
01/31/25 11:33 01/31/25 11:33 01/31/25 11:33 01/31/25 11:33 01/31/25 11:33
Intake & Output
01/30/25 01/31/25 02/01/25
06:59 06:59 06:59
Intake:
Oral fluids 360 / 360 1200 / 1200
IV piggybacks 50 / 50
Output:
Urine, Voided 2600 / 2600 1610 / 1610
Other:
How many times incontinent 1
MODERATE amount urine
How many times incontinent 1
SATURATED amount urine
Lab Results
01/31/25 04:15
01/31/25 04:15
Calcium 8.4 mg/dl (8.4-10.2) 01/31/25 04:15
Magnesium 1.6 mg/dl (1.6-2.3) 01/30/25 04:07
Total Bilirubin 0.7 mg/dl (0.2-1.3) 01/29/25 03:21
AST 18 U/L (17-59) 01/29/25 03:21
ALT 12 U/L (0-50) 01/29/25 03:21
Alkaline Phosphatase 52 U/L (38-126) 01/29/25 03:21
Physical Exam
-
pack in place with no bleeding from nose or down back of throat
Chest: Clear
Respiratory: Clear
Data Reviewed
-
Radiology Results: Report Reviewed
--- NOTE | 2025-01-31 14:10 | CM ---
Addendum entered by Kely Chacon 01/31/25 16:56:
Patient spoke with physician and patient's son and patient agreeable to returning to [facility] today 7:30pm pickers material handlers by ambulance.
Addendum entered by Kely Chacon 01/31/25 15:47:
project manager finance spoke with patient and discussed discharge back to [facility] today, patient states he is not stable and wants to appeal his discharge, IMM completed and placed on chart and copy provided to patient.
Original Note:
Chart reviewed and all clinicals faxed to [facility] where patient resides, per notes patient is private pay at facility. Call placed to [facility] in admissions, bottle caser will reach out to patient's son to complete IMM.
Plan; Patient to return to [facility] today
[facility]
Report [phone]
--- NOTE | 2025-01-31 20:51 | W.PN.HOSP.TC ---
Today's Communication/Plan
-
Nasal packing removal from right nostril
Continue hold on Xarelto for three days after packing removal and resume taking it on 02/03/2025
chest X-ray for cough
Incentive spirometry
discharge home today
Assessment / Plan
Assessment / Plan
IMPRESSION:
79-year-old male with past medical history of non-Hodgkin's lymphoma s/p R-CHOP, paroxysmal atrial fibrillation on Xarelto, history of GI bleed, HFrEF (echo 11/30 EF 45%), hyperlipidemia, depression, back pain, osteoarthritis, iron deficiency
anemia, glaucoma, GERD, who presents with acute blood loss anemia
Acute epistaxis:
-Acute blood loss anemia, from epistaxis, associated with Xarelto
-Xarelto held and resume Xarelto 20 mg PO at night in three days after packing removal
-packing removed by ENT today and mild pinkish color bleeding after removal and it was expected per ENT
-hgb stable at trending up 9.7-->10.0 today , s/p 2units PRBC 01/28
-Received topical TXA, epistaxis balloon catheter, topical thrombin and silver nitrate in ED. Bleeding appears to be well-controlled.
Acute hypoxemic respiratory failure
Recently treated with antibiotics for pneumonia
LLL consolidation on chest x-ray, however Pro-Calc negative. X-ray findings likely residual from pneumonia which was treated.
-Keflex discontinued. Afebrile off antibiotics. Complained of nonproductive cough today. Gave Tessalon Perles. Likely from HF (lasix was held previously)
-New chest Xray was done today and showed similar appearance of the left basilar airspace opacity which may represent atelectasis or pneumonia.Pt has not started on Incentive spirometry and will start using it today
-recommended Intensive spirometry
-Currently patient refused O2 nasal canula
Hypotension
-Resolved status post IV fluids.
-Discontinued IV fluids. Known history of CHF
-Resumed pt home lasix 40/20 mg PO alternating daily (for 6 days out of the week), appropriately diuresing
-Resumed K+ supplement
Mental health disorder:
-Continue home mirtazapine, escitalopram, aripiprazole, lorazepam, hydroxyzine
-Appreciate psych - not depressed or suicidal
Chronic anemia:
2/2 chemotherapy, recent acute blood loss secondary to GI bleed, known LIVAN
-Transfuse for Hg <7
#HFrEF (last echo 11/2021 EF 45%)
-Not in exacerbation
-BNP 1859
-Continue home lasix, lisinopril and metoprolol given normotension (holding parameters)
#Permanent a.fib s/p AV node ablation and Mirca leadless pacemaker implant 2020
-- Resume metoprolol not a blood pressure is normal. Xarelto held for acute epistaxis
#Non-hodkins lymphoma s/p R-CHOP
-Follows with Dr. Tyler at [facility]
-continue home lenalidomide
-Patient is not sure why he is on allopurinol - could be for tumor lysis syndrome vs gout - continue
#Hypomagnesemia:
- Replete
#Hx GI bleed - denies hematochezia or melena - monitor bowel movements
#Insomnia - tramadol
#GERD - pantoprazole
#LIVAN - receives IV iron with Dr. Tyler at [place]
#Vit D deficiency - cont. vit D
#Chronic back pain - Cont home oxycodone PRN - bowel regimen
#Vertigo - meclizine prn
#Osteoarthrits
#HTN - now hypotensive - hold BP meds
#HLD - had history but not on any meds for it anymore
#Glaucoma - continue home eye drops
#Urinary issue - states not BPH but can't recall what. Continue tamsulosin and mirabegron
#History of fungal rash - nystatin
#Gout - allopurinol
#Hx Kidney stones
DNR
DVT - SCD in setting of acute bleed
Low sodium fluid restricted diet with HFrEF
Anticipated Discharge: Today
Subjective/Interval History
-
Date of Service: January 31, 2025
Patient was comfortable and was eating his breakfast.He denied chest pain, shortness of breath, nausea , vomiting , fever , chills.
Objective Data
-
Vital Signs:
Vital Signs
Temp Pulse Resp BP Pulse Ox
99.2 F 71 16 109/70 92
01/31/25 19:28 01/31/25 19:28 01/31/25 19:28 01/31/25 19:28 01/31/25 19:28
I&O
01/30/25 01/31/25 02/01/25
06:59 06:59 06:59
Intake Total 360 / 360 1250 / 1250 480 / 480
Output Total 2600 / 2600 1610 / 1610 200 / 200
Balance -2240 / -2240 -360 / -360 280 / 280
Review of Systems
-
History Source: Patient
Respiratory: Reports Cough
Cardiac: Reports No Symptoms
Abdomen/GI: Reports No Symptoms
Genitourinary: Reports No Symptoms
Physical Exam
-
General: No Apparent Distress and Comfortable
HEENT: Normocephalic and Atraumatic
Respiratory: Clear to Auscultation
Cardiac: Regular Rhythm and S1/S2
GI: Soft and Nontender
Musculoskeletal: No Cyanosis and No Edema
Neuro: Awake, Alert and Oriented
Psych: Calm
--- NOTE | 2025-02-01 18:51 | W.DCSUMMARY ---
Discharge Summary
Discharge Data
Date of Admission: 01/28/25
Date of Discharge: 02/01/25
-
Pending Results: No
Hospital Course
Discharging Physician :
Nicanor Teixeira Alneaimy, Rana
Disposition :
shelter
Primary care physician :
None
Principal Discharge diagnosis :
Epistaxis and pneumonia
Chronic Discharge diagnosis :
1. Non-Hodgkin's lymphoma 2021 s/p R-CHOP
2. HFrEF (last echo 11/2021 EF 45%)
3. Permanent a.fib s/p AV node ablation and Mirca leadless pacemaker implant 2020
4. HLD
5. History of GI bleed
6. Kidney stones
7. Osteoarthritis
8. Iron deficiency anemia
9. Glaucoma
10. GERD
11. Urinary issue (patient states not BPH)
12. Depression
13. Gout
Hospital Course :
Patient presented to the emergency department with significant epistaxis primarily from the right nostril.The bleeding had been managed pressure and with cauterize by silver nitrate and topical TXA on the site of bleeding. packing placed in the
right nostril. The bleeding was most likely due to high incorrect dose of Xarelto that the patient was taking and the correct dose was placed at the discharge note from previous hospital admission.The patient arrived hypotensive with a systolic
blood pressure in the 70s. His hemoglobin level was 8.0, consistent with previous hospital discharge levels. Due to the ongoing cough and suspected lower blood volume, admitted for further evaluation and for management of epistaxis. during
hospitalization urine culture was negative for bacterial growth, and nose culture was negative for MRSA growth , blood culture preliminary results negative for bacterial growth, Influenza A and B test was negative. During hospitalization the
bleeding has been controlled , Patient found to have pneumonia per chest x-ray and started on antibiotics and patient refused Oxygen nasal canula when he was having hypoxia stated that he was on O2 supplement and though that what cause the
bleeding.His O2 saturation was normal days before he discharged.Patient had hypotension which was managed with IV fluids.
Patient had cute blood loss anemia for which he received 2 unites of blood and his Hb levels were stable after the transfusion. Xarelto has been held during hospitalization to avoid rebleeding and was recommended to resume taking the correct dose
three days after the discharge from the hospital. Patient also received antibiotics for nasal packing.
Nose packing removed on 01/31/2025 with no bleeding. Disharged with home medication and resume Xarelto on 02/03/2025 and to do CMP and CBC w/ diff. between 02/08/2025 and 02/14/2025
Important imaging findings :
Chest X-ray on 01/22/2025:
Moderate to large hiatal hernia. Parenchymal opacity within both lower lungs, most likely atelectasis, similar appearance to PET/CT scan of December 13, 2024.
Cardiomegaly. Vasculature does not appear to be actively congested
Chest x-ray on 01/28/2025:
1. Left lower lobe airspace consolidation, which may represent pneumonia or subsegmental atelectasis.
2. Small left pleural effusion may also be present.
Chest X-ray on 01/31/2025:
There is similar appearance of the left basilar airspace opacity which may represent atelectasis or pneumonia.
Discharge Plan
-
Patient Disposition: [facility]NF
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
Diet: 2 Gram Sodium
Activity: As tolerated
Driving Restrictions: As prior to admission
Bathing Restrictions: OK to Shower
Blood Work: repeat CBC and CMP in one week
Referrals:
NONE,* [Family Provider, Internal Medicine] - in less than 1 week
Shannan Bowling MD, Resident [Family Practice Resident Year1, General]
Additional Discharge Medication Instructions: Start Xarelto 20mg 1 tablet on 02/03
Prescriptions:
New
Xarelto 20 mg tablet
20 mg PO DAILY Qty: 30 0RF
Rx Instructions:
Start 02/03.
Do not take more then 1 tablet per a day
If bleeding seek medical attention
Continued
pantoprazole [Protonix] 20 MG tablet,delayed release (DR/EC)
40 mg PO DAILY
tamsulosin 0.4 MG capsule
0.4 mg PO DAILY
meclizine 25 MG tablet
25 mg PO DAILYPRN PRN (Reason: dizziness)
gabapentin 100 MG capsule
100 mg PO BID
latanoprost 0.005 % Drops
1 drp BOTH EYES HS
allopurinol 100 mg Tablet
100 mg PO TID
docusate sodium 100 mg Capsule
200 mg PO BID
mirtazapine 15 mg Tablet
15 mg PO HS
metoprolol succinate 25 mg Tablet Extended Release 24 Hr
25 mg PO DAILY
aripiprazole 2 mg Tablet
2 mg PO HS
oxycodone 5 mg Tablet
5 mg PO Q6HPRN PRN (Reason: breathru pain) Qty: 6 0RF
trazodone 50 mg Tablet
50 mg PO HS
tramadol 50 mg Tablet
50 mg PO Q6HPRN PRN (Reason: moderate pain)
mirabegron [Myrbetriq] 50 mg Tablet Extended Release 24 Hr
50 mg PO HS
furosemide 40 mg tablet
40 mg PO TUTHSA
acetaminophen 325 mg Tablet
650 mg PO Q6HPRN PRN (Reason: mild pain)
potassium chloride 10 mEq tablet extended release
10 meq PO DAILY
allopurinol 300 mg tablet
300 mg PO DAILY@0900
furosemide 20 mg tablet
20 mg PO MOWEFR
escitalopram oxalate 5 mg tablet
5 mg PO DAILY
biotin 10 mg Tablet
10 mg PO DAILY
sennosides [senna] 8.6 mg Tablet
8.6 mg PO DAILY
vitamin A 2,400 mcg Capsule
2,400 mcg PO DAILY
ketoconazole 2 % Shampoo
1 applic TOPICAL WE
beta carotene 7,500 mcg (25,000 unit) Capsule
7,500 mcg PO DAILY
ondansetron HCl 8 mg Tablet
8 mg PO TID
therapeutic multivitamin Tablet
1 tab PO DAILY
prochlorperazine maleate [Compazine] 10 mg Tablet
10 mg PO Q6HPRN PRN (Reason: nausea)
guaifenesin [Alee-Tussin] 100 mg/5 mL Liquid
100 mg PO Q6HPRN PRN (Reason: cough)
lorazepam 0.5 mg Tablet
0.5 mg PO DAILYPRN PRN (Reason: anxiety)
magnesium hydroxide [Milk of Magnesia] 400 mg/5 mL Suspension
2,400 mg PO DAILYPRN PRN (Reason: if no bm by 3rd day)
bisacodyl [Dulcolax (bisacodyl)] 10 mg Suppository
10 mg VT DAILYPRN PRN (Reason: if no bm aftr mom)
Fleet Enema 19-7 gram/118 mL Enema
118 ml VT DAILYPRN PRN (Reason: if no bm aftr dulcolax)
hydroxyzine HCl 25 mg Tablet
25 mg PO BID
nystatin 100,000 unit/gram Powder
1 applic TOPICAL BID
lenalidomide 5 mg Capsule
5 mg PO HS
cholecalciferol (vitamin D3) [Vitamin D3] 25 mcg (1,000 unit) Tablet
25 mcg PO DAILY
guaifenesin [Mucinex] 600 mg Tablet Extended Release 12hr
600 mg PO BID
lisinopril 2.5 mg Tablet
2.5 mg PO DAILY
Discontinued
Xarelto 20 mg tablet
40 mg PO HS
Discharge Orders:
Discharge Patient (As Directed); Ordered 01/31/25
Ordered By: Rory Brooks
Discharge Date and Time
Discharge Date/Time: 01/31/25 20:04
Print Language: KOREAN
== END 2025-01-31 20:04 | DRG 811 ==
LOC: 4 WEST ACU 09:11
PROVIDERS: Student in an Organized Health Care Education/Training Program; ADMITTING PHYSICIAN Internal Medicine; ATTENDING PHYSICIAN Hospitalist; CONSULT PHYSICIAN Psychiatry & Neurology Psychiatry; EMERGENCY PHYSICIAN Emergency Medicine
PROC: 30243N1 Transfusion of Nonautologous Red Blood Cells into Central Vein, Percutaneous Approach (ICD-10-PCS; 2025-01-28)
DX: D62 Acute posthemorrhagic anemia (principal); J96.01 Acute respiratory failure with hypoxia; I50.22 Chronic systolic (congestive) heart failure; I48.21 Permanent atrial fibrillation; R45.851 Suicidal ideations; C85.90 Non-Hodgkin lymphoma, unspecified, unspecified site; R04.0 Epistaxis; I95.9 Hypotension, unspecified; I11.0 Hypertensive heart disease with heart failure; K21.9 Gastro-esophageal reflux disease without esophagitis; E55.9 Vitamin D deficiency, unspecified; G89.29 Other chronic pain; E78.5 Hyperlipidemia, unspecified; Z87.442 Personal history of urinary calculi; Z79.01 Long term (current) use of anticoagulants; D50.9 Iron deficiency anemia, unspecified; Z66 Do not resuscitate
CPT/HCPCS: 30901; 71045; 71046; 80048; 80053; 83605; 83735; 83880; 84145; 85014; 85018; 85025; 85027; 86850; 86900; 86901; 86920; 87040; 87070; 87502; 87811; 93005; 93306; 96361; 96374; 96375; 99285; P9016

== ENCOUNTER 2025-03-25 16:23 | Emergency (ER) | payer OTHER, SELFPAY ==
[2025-03-25 16:26] VITALS: BP 106/69
--- NOTE | 2025-03-25 16:52 | EDRN ---
Patient screaming at parts technician stating 'I am not having anymore blood work done. You're just going to have use the numbers they got. I am not having it done.' despite the parts technician explaining to the patient why it needs to be repeated and that
additional labs need to be drawn. Patient becoming angrier at staff.
[2025-03-25 17:56] LABS: Hematocrit 24.6 % (39.0-52.0); Hemoglobin 7.0 g/dL (13.0-18.0); Mean Corp Hgb Conc. 28.5 g/dL (33.0-37.0); Mean Corpuscular Volume 77.8 fL (80.0-94.0); Platelet Count 266 10^3/uL (130-400); Red Cell Dist. Width 21.6 % (11.5-14.5)
[2025-03-25 18:04] VITALS: BMI 26.3
[2025-03-25 18:08] LABS: ALT (SGPT) 18 U/L (0-50); AST (SGOT) 29 U/L (17-59); Albumin 3.9 g/dl (3.5-5.0); Alkaline Phosphatase 62 U/L (38-126); Blood Urea Nitrogen 26 mg/dl (9-20); Calcium 8.7 mg/dl (8.4-10.2); Chloride 103 mmol/L (98-107); Estimated Creatinine Clearance 53 ml/min; Glucose 109 mg/dl (70-99); Potassium 4.8 mmol/L (3.5-5.1); Sodium 139 mmol/L (135-145); Total Protein 5.9 g/dl (6.3-8.2); eGFR > 60.00
[2025-03-25 18:16] LABS: Carbon Dioxide 31 mmol/L (22-30)
--- NOTE | 2025-03-25 18:33 | ED.GENMED ---
History of Present Illness
General
Chief Complaint: Abnormal Lab Value
Source: patient
Exam Limitations: none
Time Seen by Provider: 03/25/25 17:55
History of Present Illness
History of Present Illness:
79-year-old male with history of non-Hodgkin's lymphoma, follows with [facility] presents from [facility] with outpatient labs demonstrating low hemoglobin. He notes he is short of breath with exertion. He is on Eliquis. He denies any
vomiting or diarrhea. He denies any black stools. He has had anemia before. He is had a recent colonoscopy and they cannot find a source of bleeding.
Past History
Past History
ED Past Medical History: Arrthythmia and Cancer (N[facility])
ED Past Surgical History: Other (dental)
Social History
Tobacco: Non-smoker
Alcohol: None
Drug: None
Personal:
Living: retirement
Phy Exam
Physical Exam
Physical Exam:
General: Overall well-appearing male no acute respiratory distress
HEENT: Normal cephalic atraumatic
Heart: Regular rate and rhythm
Lungs: Clear no wheeze
Ext: NO edema
Skin: Warm, no rash
Course
Orders/Labs/Results
Orders:
Orders
03/25/25 17:42
Type And Crossmatch [Type+Screen] Urgent
CMP [Comprehensive Metabolic Panel] Urgent
Complete Blood Count/With Diff Urgent
03/25/25 18:01
Blood Bank Products [* Blood Bank Products] Urgent
Blood Bank Products: *Packed RBC Leuko (PRBC's
Quantity: 1
Transfuse Today: Yes
Reason: Anemia
Abnormal Lab Results
03/25/25
17:42
WBC 4.3 L 10^3/uL
(4.8-10.8)
RBC 3.16 L 10^6/uL
(4.70-6.10)
Hgb 7.0 L g/dL
(13.0-18.0)
Hct 24.6 L %
(39.0-52.0)
MCV 77.8 L fL
(80.0-94.0)
MCH 22.2 L pg
(27.0-31.0)
MCHC 28.5 L g/dL
(33.0-37.0)
RDW 21.6 H %
(11.5-14.5)
Absolute Lymphs (auto) 0.7 L 10^3/uL
(1.2-3.4)
Lymphocytes % 15.9 L %
(20.5-51.1)
Monocytes % 14.5 H %
(1.7-9.3)
Eosinophils % 10.0 H %
(0-6)
Carbon Dioxide 31 H mmol/L
(22-30)
BUN 26 H mg/dl
(9-20)
Glucose 109 H mg/dl
(70-99)
Total Protein 5.9 L g/dl
(6.3-8.2)
Crossmatch IS Only See Detail
03/25/25 17:42
03/25/25 17:42
Vital Signs
Initial and Last Documented VS:
Initial Vital Signs
Temp Pulse Resp BP Pulse Ox
98.0 F 84 16 106/69 96
03/25/25 16:26 03/25/25 16:26 03/25/25 16:26 03/25/25 16:26 03/25/25 16:26
Last Documented Vital Signs
Temp Pulse Resp BP Pulse Ox
98.0 F 68 20 115/80 97
03/25/25 21:03 03/26/25 00:00 03/26/25 00:00 03/25/25 21:03 03/26/25 00:00
MDM/Problems Addressed
Differential Diagnosis Includes:
Setting for anemia with a history of the same. Vital signs are stable. Hemoglobin here is 7.0 baseline is just above 8. Consent signed for 1 unit of packed red blood cells hope to discharge after the transfusion is complete
*Pulse Oximetry
SaO2: 93
Oxygen Mode of Delivery: Room air
Patient hypoxic: no
*Critical Care Note
Total Time (30-74mins, 75-104mins- exclusive of procedures): Not Applicable
ED Attending Note
-
Portions of this chart may have been created with voice recognition software.� Occasional wrong word or��sound alike� substitutions may have occurred due to the inherent limitations of voice recognition software.
Discharge Plan
Departure
Patient Disposition: Home (Routine Discharge)
Patient with high blood pressure during this ER visit?: No
Discharge Problem:
Anemia
Prescriptions:
No Action
pantoprazole [Protonix] 20 MG tablet,delayed release (DR/EC)
40 mg PO DAILY
tamsulosin 0.4 MG capsule
0.4 mg PO DAILY
meclizine 25 MG tablet
25 mg PO DAILYPRN PRN (Reason: dizziness)
gabapentin 100 MG capsule
100 mg PO BID
latanoprost 0.005 % Drops
1 drp BOTH EYES HS
allopurinol 100 mg Tablet
100 mg PO TID
docusate sodium 100 mg Capsule
200 mg PO BID
mirtazapine 15 mg Tablet
15 mg PO HS
metoprolol succinate 25 mg Tablet Extended Release 24 Hr
25 mg PO DAILY
aripiprazole 2 mg Tablet
2 mg PO HS
trazodone 50 mg Tablet
50 mg PO HS
tramadol 50 mg Tablet
50 mg PO Q6HPRN PRN (Reason: moderate pain)
mirabegron [Myrbetriq] 50 mg Tablet Extended Release 24 Hr
50 mg PO HS
furosemide 40 mg tablet
40 mg PO TUTHSA
acetaminophen 325 mg Tablet
650 mg PO Q6HPRN PRN (Reason: mild pain)
potassium chloride 10 mEq tablet extended release
10 meq PO DAILY
allopurinol 300 mg tablet
300 mg PO DAILY@0900
furosemide 20 mg tablet
20 mg PO MOWEFR
escitalopram oxalate 5 mg tablet
5 mg PO DAILY
biotin 10 mg Tablet
10 mg PO DAILY
sennosides [senna] 8.6 mg Tablet
8.6 mg PO DAILY
vitamin A 2,400 mcg Capsule
2,400 mcg PO DAILY
ketoconazole 2 % Shampoo
1 applic TOPICAL WE
beta carotene 7,500 mcg (25,000 unit) Capsule
7,500 mcg PO DAILY
ondansetron HCl 8 mg Tablet
8 mg PO TID
therapeutic multivitamin Tablet
1 tab PO DAILY
prochlorperazine maleate [Compazine] 10 mg Tablet
10 mg PO Q6HPRN PRN (Reason: nausea)
guaifenesin [Alee-Tussin] 100 mg/5 mL Liquid
100 mg PO Q6HPRN PRN (Reason: cough)
lorazepam 0.5 mg Tablet
0.5 mg PO DAILYPRN PRN (Reason: anxiety)
magnesium hydroxide [Milk of Magnesia] 400 mg/5 mL Suspension
2,400 mg PO DAILYPRN PRN (Reason: if no bm by 3rd day)
bisacodyl [Dulcolax (bisacodyl)] 10 mg Suppository
10 mg DE DAILYPRN PRN (Reason: if no bm aftr mom)
Fleet Enema 19-7 gram/118 mL Enema
118 ml DE DAILYPRN PRN (Reason: if no bm aftr dulcolax)
hydroxyzine HCl 25 mg Tablet
25 mg PO BID
nystatin 100,000 unit/gram Powder
1 applic TOPICAL BID
cholecalciferol (vitamin D3) [Vitamin D3] 25 mcg (1,000 unit) Tablet
25 mcg PO DAILY
guaifenesin [Mucinex] 600 mg Tablet Extended Release 12hr
600 mg PO BID
lisinopril 2.5 mg Tablet
2.5 mg PO DAILY
oxycodone 5 mg tablet
5 mg PO Q6HPRN PRN (Reason: SEVERE pain)
Xarelto 20 mg tablet
20 mg PO DAILY
Rx Instructions:
Start 02/03.
Do not take more then 1 tablet per a day
If bleeding seek medical attention
Referrals:
Javan Del Castillo, [Family Provider, Internal Medicine]
Activity Restrictions/Additional Instructions:
Continue to follow-up with your doctors as planned. Return if worse otherwise
Interventions
Interventions:
*Risk Screen - Suicide Last Done: 03/25/25 16:26
*General Assessment Last Done: 03/25/25 18:04
*Neglect/Abuse Screening Last Done: 03/25/25 16:26
*ED- Fall Risk Assessment Last Done: 03/25/25 18:04
*ED COVID-19 Vaccine History Last Done: 03/26/25 00:00
*ED Influenza Vaccine History Last Done: 03/25/25 18:04
*Nursing Disposition Last Done: 03/26/25 00:00
Discharge Date and Time
Discharge Date/Time: 03/26/25 00:02
Print Language: [email or web address]
[2025-03-25 18:34] LABS: Anisocytosis 2+; Hypochromasia 4+; Macrocytosis 2+; Normal RBC Morphology No; Nucleated Red Blood Cells % 0.5 % (-); Poikilocytosis 1+; Polychromasia Occasional; Target Cells 1+
[2025-03-25 18:35] LABS: Stomatocytes 1+
[2025-03-25 19:21] VITALS: BP 97/71
[2025-03-25 19:41] VITALS: BP 104/71
[2025-03-25 19:42] VITALS: BP 104/71
[2025-03-25 20:55] VITALS: BP 115/80
[2025-03-25 21:03] VITALS: BP 115/80
== END 2025-03-26 00:02 | disposition home or self-care (01) ==
LOC: EMR 16:23
PROVIDERS: EMERGENCY PHYSICIAN Student in an Organized Health Care Education/Training Program; FAMILY PHYSICIAN Internal Medicine
DX: D64.9 Anemia, unspecified (principal); Z79.01 Long term (current) use of anticoagulants; Z85.72 Personal history of non-Hodgkin lymphomas
CPT/HCPCS: 99283; 36430; 80053; 85025; 86850; 86900; 86901; 86920; P9016